=== PATIENT | female | born 1950 | race Caucasian/White ===

== ENCOUNTER 2021-06-22 08:22 | Emergency (ER) | payer MEDICARE, SELFPAY ==
--- NOTE | ~2021-06-22 | XR_ITS ---
EXAMINATION: XR chest 2V EXAM DATE: 06/22/2021 09:08 INDICATION: SOB cough and congestion. TECHNIQUE: Frontal and lateral projections of the chest obtained and reviewed. There is no prior adin dy for comparison. FINDINGS: The lungs are clear. There are no pleural effusions. The cardiomediastinal silhouette is within normal limits. There is no pneumothorax suspected. The bones and soft tissues are unremarkab le. IMPRESSION: No acute cardiopulmonary findings. Reviewed, dictated and finalized at location B. A COTTA MOLD MAKER
[2021-06-22 08:28] VITALS: BP 115/83; PULSE 79; RESP 24; TEMP 36.8; O2SAT 90
[2021-06-22 08:32] VITALS: O2SAT 97
--- NOTE | 2021-06-22 08:33 | ECG_ITS ---
Measurements Intervals [place] Rate: 75 P: 56 CO: 147 QRS: 26 QRSD: 86 T: 31 QT: 382 QTc: 428 Interpretive Statements SINUS RHYTHM DELAYED PRECORDIAL R/S TRANSITION LOW QRS VOLTAGE IN PRECORDIAL LEADS BORDERLINE T WAVE ABNORMALITY- ANTERIOR LEADS BASELINE ARTIFACT- I, II, III, AVR, AVL, AVF, V5-V6 BORDERLINE ECG Electronically Signed On 06-22-2021 8:53:01 TARGET TRIMMER by Tk Romano D.O.
[2021-06-22 09:03] LABS: Basophils Percent Auto 0.4 % (0.2-1.2); Eosinophils Absolute Auto 0.1 K/mm3 (0-0.3); Eosinophils Percent Auto 0.7 % (0-4.4); Hematocrit 47.9 % (37.0-47.0); Hemoglobin 16.1 g/dL (12.0-15.0); Immature Granulocyte Absolute 0.02 K/mm3 (0.00-0.031); Immature Granulocyte Percent A 0.2 % (0-0.5); Lymphocytes Absolute Auto 2.05 K/mm3 (0.9-3.2); Lymphocytes Percent Auto 24.5 % (18.3-44.2); Mean Corpuscular HGB Conc 33.6 g/dl (32-36); Mean Corpuscular Hemoglobin 32.6 pg (26-34); Mean Platelet Volume 9.2 fl (7.4-10.4); Monocytes Absolute Auto 0.6 K/mm3 (0.1-0.6); Monocytes Percent Auto 7.5 % (2.6-8.5); Neutrophils Absolute Auto 5.6 K/mm3 (1.3-6.7); Neutrophils Percent Auto 66.7 % (45.5-73.1); Platelet Count Result 247 k/mm3 (150-375); Red Blood Count 4.94 M/mm3 (4.2-5.4); Red Cell Distribution Width 12.3 % (11.5-14.5); White Blood Count 8.4 K/mm3 (4.5-10.0)
[2021-06-22 09:17] LABS: Alanine Aminotransferase 22 U/L (4-35); Albumin Level 4.5 g/dL (3.5-5.1); Alkaline Phosphatase 76 U/L (38-126); Anion Gap 6 mmol/L (8-16); Aspartate Amino Transferase 24 U/L (14-36); Bilirubin,Total 0.6 mg/dL (0.2-1.3); Blood Urea Nitrogen 11 mg/dL (7-17); Carbon Dioxide 33 mmol/L (22-30); Chloride 97 mmol/L (98-107); Estimated CRCL calculation 98 ml/min; Estimated Glomerular Filt Rate > 60; Glucose 107 mg/dL (65-110); Potassium 4.2 mmol/L (3.4-5.0); Sodium 136 mmol/L (137-145)
[2021-06-22] MEDS: ALBUTEROL SULFATE NEB 2.5 MG/0.5 ML INH 5 MG INHALATION (09:51)
[2021-06-22] MEDS: IPRATROPIUM BR 0.02% INH SOLN 0.5 MG/2.5 ML VIAL INHALATION (09:52)
[2021-06-22 09:54] VITALS: PULSE 69; RESP 19
[2021-06-22 09:59] VITALS: PULSE 73; RESP 20
--- NOTE | 2021-06-22 10:10 | ED.SOB ---
HPI - SOB/Dyspnea General Chief Complaint: Shortness of Breath/Dyspnea Stated Complaint: Shortness of breath Time Seen by Provider: 06/22/21 09:19 History of Present Illness HPI Narrative: Patient is a 71-year-old female who presents ER with shortness of breath. Patient has history of COPD but is not oxygen dependent. She uses [employer] at home. She reports that last week she was exposed to her daughter who had a viral syndrome. Patient has had sinus congestion with sore throat and productive cough since then. She has developed increased exertional shortness of breath. No chest pain or chest pressure. No alleviating factors at home. Patient has been vaccinated against COVID-19 and has had flu shot. She endorses chills but no fevers. Related Data Allergies Allergy/AdvReac Type Severity Reaction Status Date / Time codeine Allergy VOMITING Verified 05/19/12 14:51 Review of Systems Review of Systems: All systems reviewed & are unremarkable except as noted in HPI and below Constitutional: Constitutional: Reports chills, Reports fatigue and Denies fever(s) ENT: Reports nasal congestion and Reports sore throat Cardiovascular: Cardiovascular: Denies chest pain, Denies rapid heart rate and Denies radiating jaw, neck or arm pain Respiratory: Respiratory: Reports cough, Reports dyspnea and Reports wheezing Gastrointestinal: Gastrointestinal: Denies abdominal pain, Denies diarrhea, Reports nausea and Denies vomiting Neurologic: Reports headache(s) (Occasional throbbing headache is circumferential.), Denies focal weakness and Denies numbness PMFSH Past Medical History Medical History (Updated 06/22/21 @ 12:13 by Morales Wooten MD) Anxiety CAD (coronary atherosclerotic disease) COPD (chronic obstructive pulmonary disease) Depression Diabetes Hyperlipidemia Hypertension Surgical History Surgical History (Updated 06/22/21 @ 10:14 by Morales Wooten MD) History of section History of hysterectomy Social History Social History (Updated 06/22/21 @ 10:15 by Morales Wooten MD) Smoking status: Current every day smoker Exam Narrative: GENERAL: Well-appearing, well-nourished, and in no acute distress. HEAD: Normocephalic, atraumatic. EYES: PERRL and EOMI. CHEST: Mild tachypnea with scattered wheezing worse anteriorly. HEART: Regular rate and rhythm. Normal peripheral pulses. ABDOMEN: Soft, nontender, nondistended. EXTREMITIES: Normal range of motion. No edema. SKIN: Warm, dry, no rash. NEURO: Alert and oriented x3. PSYCH: Normal mood and affect. Course Course Emergency Course: Patient still with wheezing and rhonchi diffusely but improved. Patient has had some mild hypoxia down to 88% likely related to VQ mismatch. Discussed admission with patient for observation IV steroids and continuous nebulizer treatments. She reports she cannot stay in the hospital due to having a who is demented and has a colostomy bag. She reports she has not been eligible for long-term care and that there is no family to watch him. She is declining any admission but reports she will come back if she worsens. Though she is leaving AMA I will give her a prescription for albuterol which she has not had and I will also prescribe her a course of steroids. She understands the risks of leaving her , deterioration of condition, and potentially permanent disability. Vital Signs Vital signs: Vital Signs Temperature 98.2 F 06/22/21 08:28 Pulse Rate 79 06/22/21 08:28 Respiratory Rate 24 H 06/22/21 08:28 Blood Pressure 115/83 06/22/21 08:28 Pulse Oximetry 90 06/22/21 08:28 Temperature 98.2 F 06/22/21 08:28 Pulse Rate 73 06/22/21 09:59 Respiratory Rate 20 06/22/21 09:59 Blood Pressure 115/83 06/22/21 08:28 Pulse Oximetry 96 06/22/21 11:44 MDM - SOB/Dyspnea Lab Data Result diagrams: 06/22/21 08:56 06/22/21 08:56 Labs: Lab Results 06/22/21
--- NOTE | 2021-06-22 11:43 | PC.NURSE ---
pt's pulse ox 85%-89% on room air. Dr Wooten aware - placed pt on 2l/nc per ER verbal order.
[2021-06-22 11:44] VITALS: O2SAT 96
[2021-06-22] MEDS: methylPREDNISolone SOD SUCC 125 MG VIAL IV PUSH (11:51)
[2021-06-22 18:48] LABS: SARS-CoV-2 RNA PCR Negative
== END 2021-06-22 12:41 | disposition left against medical advice (07) ==
PROVIDERS: Emergency Medicine; Emergency Provider Emergency Medicine; PCP Physician Assistant
DX: Z20.822 Contact with and (suspected) exposure to COVID-19 (principal); J44.1 Chronic obstructive pulmonary disease with (acute) exacerbation; F41.9 Anxiety disorder, unspecified; F32.9 Major depressive disorder, single episode, unspecified; I25.10 Atherosclerotic heart disease of native coronary artery without angina pectoris; E11.9 Type 2 diabetes mellitus without complications; I10 Essential (primary) hypertension
CPT/HCPCS: 36415; 71046; 80053; 85025; 93005; 94640; 96374; 99284; C9803; J2930; U0003; U0005

== ENCOUNTER → 2022-09-15 12:03 | Outpatient (CLI) | payer MEDICARE, SELFPAY ==
--- NOTE | ~2022-09-15 | MM_ITS ---
EXAMINATION: MM screening frantz BI w grabiel HISTORY: Screening mammogram TECHNIQUE: Craniocaudal and mediolateral oblique 3-D tomosynthesis images were obtained and synthetic 2-D images were generated. CAD analysis was submitted and interpreted. COMPARISON: 02/03/2019, 08/17/2017 bilateral screening mammogram examinations BREAST PARENCHYMAL COMPOSITION: The breasts are almost entirely fatty. FINDINGS: There is no evidence of suspicious mass, calcification, or architectural distortion to sugg est malignancy in either breast. There has been no suspicious interval change. IMPRESSION: 1. No mammographic evidence of malignancy. 2. Recommend routine screening mammography in one year. BI-RADS Category 1: Negative Reviewed, dictated and finalized at location A. STIC HOUSEKEEPER
== END ==
PROVIDERS: PCP Nurse Practitioner Family; Visit Provider Nurse Practitioner Family
DX: Z12.31 Encounter for screening mammogram for malignant neoplasm of breast (principal)
CPT/HCPCS: 77063; 77067

== ENCOUNTER 2024-01-09 12:04 | Outpatient (CLI) | payer MEDICARE, SELFPAY ==
--- NOTE | ~2024-01-09 | DEXA_ITS ---
Bone Density Report Name: LUCERO VIDAL Age: 73 Sex: Female Ethnicity: White Date of : 1950 Indication: postmenopausal; screening for osteoporosis; height loss; hysterectomy; Referring Provider: ROSANA, ERUM Study: Bone densitometry was performed. Exam Date: January 09, 2024 Accession number: [id number] Bone Density: Region BMD T-score Z-score Classification AP Spine (L1, L2) 1.100 1.1 3.2 Normal Femoral Neck (Left) 0.730 -1.1 0.9 Osteopenia Total Hip (Left) 0.919 -0.2 1.5 Normal Femoral Neck (Right) 0.785 -0.6 1.4 Normal Total Hip (Right) 0.924 -0.1 1.5 Normal Total Hip Mean 0.922 -0.2 1.5 Normal World Health Organization criteria for BMD impression classify patients as: Normal (T-score at or above -1.0), Osteopenia (T-score between -1.0 and -2.5), or Osteoporosis (T-score at or below -2.5). 10-year Fracture Risk(1): Major Osteoporotic Fracture 9.2% Hip Fracture 1.9% Reported Risk Factors: [place] (), Neck BMD=0.730, BMI=33.6, smoking (1) FRAX(R) Version 3.08. Fracture probability calculated for an untreated patient. Fracture probability may be lower if the patient has received treatment. Previous Exams: Region Exam Age BMD T-score BMD Change BMD Change Date g/cm2 vs Baseline vs Previous AP Spine(L1, L2) 01/09/2024 73 1.100 1.1 0.066 0.066 08/17/2017 67 1.034 0.5 Total Hip(Left) 01/09/2024 73 0.919 -0.2 -0.044 -0.044 08/17/2017 67 0.963 0.2 Total Hip(Right) 01/09/2024 73 0.924 -0.1 -0.008 -0.008 08/17/2017 67 0.933 -0.1 *Denotes significance at 95% confidence level, LSC for AP Spine = 0.022 g/cm2, LSC for Total Hip = 0.027 g/cm2 Clinical Information Provided by Patient: Smokes Has used the following medications: Vitamin D, Calcium, MTV Has the following medical conditions: Hysterectomy Patient maximum height was 66.0 Menopause Age: 51 No regular weight bearing exercise Drinks caffeinated beverages Onset of menses at age 17 Number of children 2 Impression: The patient has low bone mass, based on the Left Femoral Neck T-score. The patient has an estimated ten-year risk of hip fracture of 1.9% and an estimated ten-year risk of major fracture of 9.2%, based on the WHO FRAX algorithm. The patient has risk factors, including: smoking. No significant bone loss was observed. Discussion: BONE DENSITY IS LOW AT ONE OR MORE SKELETAL SITES. This patient's lowest T-score is low at one or more skeletal sites. It meets the
--- NOTE | ~2024-01-09 | MM_ITS ---
EXAMINATION: MM screening frantz BI w grabiel HISTORY: Screening TECHNIQUE: Craniocaudal and mediolateral oblique 3-D tomosynthesis images were obtained and synthetic 2-D images were generated. CAD analysis was submitted and interpreted. COMPARISON: Comparison to multiple prior studies sequentially, with oldest reviewed study dated 02/02. BREAST PARENCHYMAL COMPOSITION: Not Dense: Breast are almost entirely fatty. FINDINGS: There is no evidence of suspicious mass, calcification, or architectural distortion to sugg est malignancy in either breast. There has been no suspicious interval change. IMPRESSION: 1. No mammographic evidence of malignancy. 2. Recommend routine screening mammography in one year. BI-RADS Category 1: Negative Reviewed, dictated and finalized at location B.
== END 2024-01-09 12:05 ==
LOC: MICIMG 12:05
PROVIDERS: PCP Nurse Practitioner Family; Visit Provider Nurse Practitioner Family
DX: Z12.31 Encounter for screening mammogram for malignant neoplasm of breast (principal); M81.0 Age-related osteoporosis without current pathological fracture; M85.89 Other specified disorders of bone density and structure, multiple sites; Z13.820 Encounter for screening for osteoporosis
CPT/HCPCS: 77063; 77067; 77080

== ENCOUNTER 2024-10-25 12:12 | Inpatient (IN) | payer MEDICARE, SELFPAY ==
[2024-10-25] VITALS (67 sets, daily range): BP systolic 106–137; BP diastolic 67–94; PULSE 72–89; RESP 13–44; TEMP 36.4–36.6; O2SAT 86–100; BMI 31.8
--- NOTE | ~2024-10-25 | CT_ITS ---
EXAMINATION: CT diagnostic chest w con DATE: 10/25/2024 15:38 INDICATION: Bilateral nodular densities on 10/25/2024 2 view chest radiographic examination TECHNIQUE: Computed tomography (CT) of the chest was performed with 100 CC Omnipaque 350 intravenous contrast. Automated exposure control and iterative reconstruction technique were employed. Exam dose: 602.44 mGy-cm total exam DLP. COMPARISON: 10/25/2024 2 view chest FINDINGS: There are moderate emphysematous changes favoring the upper lobes. There is patchy right upper lobe infiltrate including anterior and posterior segments. There is minim al lobe discoid atelectasis or scarring. There is minimal dependent bilateral lower lobe atelectasis. No suspicious pulmonary mass density is noted. No hilar or mediastinal mass lesion or lymphadenopathy. There is calcification of the aortic arch and descending thoracic aorta but no thoracic aortic aneury sm or dissection. Normal heart size. No pericardial effusion. Left anterior descending and circumflex artery calcificat ion. There is no evidence of pulmonary emboli. Cholelithiasis. Normal morphology of the adrenal glands. Prominent degenerative disc disease at C5-6 and C6-7. Minimal anterolisthesis at C7-T1. Degenerative spurring of the thoracic spine. No suspicious osteolytic or osteoblastic lesions are noted. IMPRESSION: COPD Patchy right upper lobe infiltrate which may be due to pneumonia Cholelithiasis Reviewed, dictated and finalized at [facility]. Reviewed, dictated and finalized at [facility].
--- NOTE | ~2024-10-25 | XR_ITS ---
XR chest 2V 10/25/2024 13:26 Indication: Dyspnea Procedure: 2 view chest Comparison: 06/22/2021 Findings: Borderline heart size with pulmonary vascular congestion. There are small bilateral nodular densities not seen on prior examination. No significant effusion. No pneumothorax. No acute osseous abnormality. Impression: 1: Small bilateral nodular densities not seen on prior examination. Follow-up CT chest with contrast recommended to exclude parenchymal nodules. 2: Borderline heart size with pulmonary vascular congestion. Reviewed, dictated and finalized at location [facility]. Impression: 1: Small bilateral nodular densities not seen on prior examination. Follow-up C T chest with contrast recommended to exclude parenchymal nodules. 2: Borderline heart size with pulmonary vascular congestion.
--- NOTE | 2024-10-25 12:17 | ECG_ITS ---
Test Date: 2024-10-25 12:19:37 Measurements Intervals [place] Rate: 76 P: -8 WA: 134 QRS: -75 QRSD: 90 T: 64 QT: 377 QTc: 426 Interpretive Statements SINUS RHYTHM LEFT AXIS DEVIATION [QRS AXIS < -30] MODERATE T-WAVE ABNORMALITY, CONSIDER ANTEROLATERAL ISCHEMIA [-0.1+ mV T-WAVE IN V3-V6] No previous ECG available for comparison Electronically Signed On 10-25-2024 17:39:22 CDT by Zhao Escobedo M.D.
--- NOTE | 2024-10-25 13:04 | ED.SOB ---
HPI - SOB/Dyspnea General Chief Complaint: Shortness of Breath/Dyspnea Stated Complaint: dyspnea, hypoxic Time Seen by Provider: 10/25/24 12:56 Source: patient and family (daughter) Mode of arrival: EMS Limitations: no limitations History of Present Illness HPI Narrative: Patient presents with shortness of breath going on for a few days. History of COPD not on supplemental O2 . prescribed inhalers but not using. Has been around sick people/family member(s) who had influenza. She has subjective fevers (not measured) and chills. EMS found her dyspneic and hypoxic saturating 70-80% on scene; placed on NC and given a DuoNeb versus albuterol by EMS. Initially shallow, labored breaths. No prior bipap or intubation for COPD exacerbation. No chest pain or edema. Has been coughing, dry but starting to loosen. Related Data Home Medications ?Medication ?Instructions ?Recorded ?Confirmed ?Last Taken ?Type alprazolam 0.25 mg tablet 0.25 mg PO DAILY PRN anxiety 01/16/22 10/26/24 10/25/24 History atorvastatin 40 mg tablet 40 mg PO QPM 01/16/22 10/26/24 10/24/24 History carvedilol 25 mg tablet 25 mg PO Q12H 01/16/22 10/26/24 10/25/24 09:30 History fluticasone furoate 100 1 inh inhalation DAILY 01/16/22 10/26/24 10/24/24 History mcg-vilanterol 25 mcg/dose inhalation powder (Breo Ellipta) metformin 500 mg tablet 1,000 mg PO QHS 01/16/22 10/26/24 10/24/24 22:00 History spironolactone 25 mg tablet 25 mg PO DAILY 01/16/22 10/26/24 10/25/24 History tiotropium bromide 18 mcg capsule 1 cap inhalation DAILY 01/16/22 10/26/24 10/24/24 History with inhalation device (Spiriva with HandiHaler) aspirin 81 mg tablet,delayed 81 mg PO QPM 10/26/24 10/26/24 10/24/24 History release (Adult Aspirin Regimen) calcium 600 mg (as 2 tablet PO DAILY 10/26/24 10/26/24 10/25/24 History carbonate)-vitamin D3 10 mcg (400 unit) tablet (Calcium 600 + D(3)) duloxetine 30 mg capsule,delayed 30 mg PO QAM 10/26/24 10/26/24 10/25/24 History release multivitamin,wi-nlrg-Ba-FA-min 1 tablet PO DAILY 10/26/24 10/26/24 10/24/24 History Allergies Allergy/AdvReac Type Severity Reaction Status Date / Time codeine Allergy VOMITING Verified 10/26/24 02:40 Bee sting Allergy Unknown Swelling Uncoded 10/26/24 02:40 PMFSH Past Medical History Medical History (Updated 10/25/24 @ 21:02 by Wanda Bang PA-C) Chronic obstructive pulmonary disease Depression Anxiety Hyperlipidemia Hypertension CAD (coronary atherosclerotic disease) Surgical History Surgical History History of section History of hysterectomy Family History Family History Mother Depression Heart disease CHF (congestive heart failure) Father Pleurisy Sibling Hypertension Acute myocardial infarction Social History Social History (Updated 10/26/24 @ 04:29 by Wanda Bang PA-C) Social History: Surrogate medical decision maker: Abby Bowling, daughter. Code status: Full code. Smoking packs per day: 1 Smoking cigarettes per day: 20.0 Years smoked: 50 Smoking pack-years: 50.00 Smoking status: Current every day smoker Tobacco type: cigarettes Second hand tobacco smoke exposure: No Alcohol intake: never Substance use: never Substance use type: does not use Do You Feel Safe in your Home?: Yes Lack of Transportation: No Lack of Food: Never True Current Housing: I Have Housing Concerned About Future Housing: No Difficulty Paying Gas/Electric Bills: No Difficulty Paying for Meds: No Currently Unemployed: No Education: High School Diploma/GED Difficulty w/ Childcare or Family Care: No Spiritual care concerns: No Exam Narrative: GENERAL: Well-appearing, well-nourished HEAD: Normocephalic, atraumatic. EYES: Non injected, non icteric ENT: Nares clear, no rhinorrhea or epistaxis. NECK: Supple. CHEST: Tacypneic; diffuse bilateral wheezes though L > R, slightly diminished on the right. NC in place. Speaking in full sentences. HEART: Regular rate and rhythm. . ABDOMEN: Soft, nondistended. EXTREMITIES: Normal range of motion. No lower extremity edema. SKIN: Warm, dry, no rash. NEURO: No focal deficits. Alert and oriented x3. PSYCH: Normal mood and affect. Course Vital Signs Vital signs: Vital Signs Temperature 97.6 F 10/25/24 12:20 Pulse Rate 76 10/25/24 12:20 Respiratory Rate 16 10/25/24 12:20 Blood Pressure 106/67 10/25/24 12:20 Pulse Oximetry 86 L 10/25/24 12:20 Temperature 98.7 F 10/26/24 08:00 Pulse Rate 96 10/26/24 10:00 Respiratory Rate 20 10/26/24 09:13 Blood Pressure 109/93 H 10/26/24 08:00 Pulse Oximetry 95 10/26/24 09:05 Oxygen Delivery Nasal Cannula 10/26/24 09:05 Oxygen Flow Rate 4 10/26/24 09:05 MDM - SOB/Dyspnea MDM Narrative Medical decision making narrative: Patient with history of COPD (not on supplemental O2 but not using inhalers prescribed) presents with SOB for the past few days. Also cough. Recent exposure to influenza. Saturating 70-80s on scene for EMS who applied NC and gave Duoneb versus albuterol. In the emergency department she is afebrile with vital signs notable for initial hypoxia at 86%. There is improvement to 94% 3 L nasal cannula. Patient does have diffuse bilateral end-expiratory wheezes although left greater than right. Given her history of COPD, will initiate treatment. EMS already gave albuterol by report. Methylprednisolone, DuoNeb, and magnesium drip ordered. Very mild AST and ALT elevations. Sodium partially corrects (to 133) in the setting of hyperglycemia. Hyperglycemia is without anion gap acidosis. Hemoglobin is elevated at 17.6. Per review of the EMR patient chronically has an elevated hemoglobin though this does represent more from previous. Patient had initially been on 3 L nasal cannula but was on 2 L at the time ABG drawn. RT notes that she had also been borderline hypoxic at 90-92% on this with nasal cyanosis so I did advise returning to 3L. She tests positive for influenza A. BAP-65 Score for Acute Exacerbation of COPD (predicts mortality in acute COPD exacerbation) BUN >/=25 mg/dL (No 0, Yes +1): 0 AMS (No 0, Yes +1): 0 Pulse >/=109 beats/min (No 0, Yes +1): 0 Age, years: 41-64 versus >/= 65: >65 Result: BAP 0, routine management COPD exacerbation. 1.0?% In-hospital mortality 0.2% requiring intubation within 48 hrs Because patient also has new O2 requirement in the setting of a COPD exacerbation, azithromycin is ordered. Patient has an elevated troponin. No prior for comparison. She denies chest pain. 3 hours/repeat troponin ordered as is aspirin. BNP also elevated, concerning for acute onset heart failure (no prior for comparison and not listed in EMR PMH). Notified by lab that there is an issue with the analyzer for the D dimer, delaying its result. Patient reassessed at approximately 3:00 p.m.. She is tight with some end-expiratory wheezes. Additional albuterol ordered. Dimer mildly elevated however per YEARS Algorithm : No Clinical signs of DVT: No Hemoptysis: No PE is most likely diagnosis: No D-dimer >1000ng/mL: No Result: PE Excluded Will proceed with ordering CT imaging with contrast given the findings on the x-ray however will not proceed with CTA. Patient and her daughter have questions about why we are proceeding with the CT. We discussed the findings on the x-ray as well as what we have learned so far from her workup including NSTEMI, COPD exacerbation influenza a positive, new oxygen requirement, and that ultimately she would require admission for these things. They verifies understanding and are in agreement and amenable to proceeding with CT.. Repeat troponin remains elevated but improving. Patchy right infiltrate on CT scan concerning for pneumonia. Patient is already received azithromycin. Will add ceftriaxone although again, possibly viral in nature given positive influenza A. Discussed with aviation technician aircraft hospitalist DORY Muñoz. Accepted for admission to the IMU. Differential Diagnosis Differential diagnosis: Likely acute exacerbation of chronic obstructive airways disease, congestive heart failure, community acquired pneumonia, pulmonary embolism and other (acute viral syndrome) Lab Data Attestation: I reviewed the patient's lab results. Lab results narrative: Normal renal function. Very mild hyperkalemia. 10/26/24 05:13 10/26/24 05:13 Labs: Lab Results 10/25/24 10/25/24 10/25/24 Range/Units 12:29 12:59 16:07 WBC 8.5 (4.5-10.0) K/mm3 RBC 5.62 H (4.2-5.4) M/mm3 Hgb 17.6 H (12.0-15.0) g/dL Hct 53.7 H (37.0-47.0) % MCV 95.6 (80-100) fl MCH 31.3 (26-34) pg MCHC 32.8 (32-36) g/dl RDW 12.5 (11.5-14.5) % Plt Count 170 (150-375) k/mm3 MPV 10.5 H (7.4-10.4) fl Immature Gran % (Auto) 0.2 (0-0.5) % Neut % (Auto) 75.8 H (45.5-73.1) % Lymph % (Auto) 15.4 L (18.3-44.2) % Clare % (Auto) 8.4 (2.6-8.5) % Eos % (Auto) 0.0 (0-4.4) % Baso % (Auto) 0.2 (0.2-1.2) % Lymph # (Auto) 1.31 (0.9-3.2) K/mm3 Clare # (Auto) 0.7 H (0.1-0.6) K/mm3 Eos # (Auto) 0.0 (0-0.3) K/mm3 Baso # (Auto) 0.0 (0.0-0.1) K/mm3 Abs Immat Gran (auto) 0.02 (0.00-0.031) K/mm3 Absolute Neuts (auto) 6.4 (1.3-6.7) K/mm3 Absolute Nucleated RBC 0.000 (0.0-0.012) K/mm3 Nucleated RBC % 0.0 (0.0-0.2) % D-Dimer 0.58 H (<0.48) ug/mL Sodium 132 L (137-145) mmol/L Potassium 5.2 H (3.4-5.0) mmol/L Chloride 89 L (98-107) mmol/L Carbon Dioxide 37 H (22-30) mmol/L Anion Gap 6 (4-12) mmol/L BUN 16 (7-17) mg/dL Creatinine 0.63 L (0.7-1.0) mg/dL Estim Creat Clear Calc Not Reportable Estimated GFR > 60 (59 - ) Glucose 161 H (65-110) mg/dL Calcium 10.2 (8.4-10.2) mg/dL Magnesium 1.9 (1.6-2.3) mg/dL Total Bilirubin 0.8 (0.2-1.3) mg/dL AST 42 H (14-36) U/L ALT 41 H (6-35) U/L Alkaline Phosphatase 74 (38-126) U/L Troponin I 0.143 H* 0.116 H* (0.000-0.034) ng/mL NT-Pro-B Natriuret Pep 3200 H (19.9-100) pg/mL Total Protein 8.0 (6.3-8.2) g/dL Albumin 4.3 (3.5-5.1) g/dL Influenza A (RT-PCR) Positive A (Negative) Influenza B (RT-PCR) Negative (Negative) RSV (RT-PCR) Negative (Negative) SARS-CoV-2 RNA (RT-PCR) Negative (Negative) ABG Data ABG results: 10/25/24 13:25 Puncture Site Left brachial ABG pH 7.371 ABG pCO2 55.3 H ABG pO2 60.4 L ABG PO2/FiO2 Ratio 2.16 ABG HCO3 31.3 H ABG O2 Saturation 90.1 L ABG O2 Content 21.1 ABG Base Excess 4.2 A-a Gradient 74.0 Oxyhemoglobin 87.6 L* Total Hemoglobin 17.2 O2 Delivery Device Nasal cannula O2 Liters/Min 2.0 FiO2 28 pH 7.371; pCO2 55.3; pO2 60.4; HCO3 31.3. Attestation: I personally reviewed and interpreted this ABG as follows: Interpretation: Primary respiratory acidosis w/ secondary metabolic alkalosis Imaging Data Attestation: I personally reviewed and interpreted this imaging study as follows: My impression: Bibasilar atelectasis versus pneumonia on my independent interpretation of chest x-ray Radiologist's impression: Impressions Chest X-Ray 10/25/24 13:34 Impression: 1: Small bilateral nodular densities not seen on prior examination. Follow-up CT chest with contrast recommended to exclude parenchymal nodules. 2: Borderline heart size with pulmonary vascular congestion. Chest CT 10/25/24 18:48 IMPRESSION: COPD Patchy right upper lobe infiltrate which may be due to pneumonia Cholelithiasis ECG Data EKG #1: Attestation: I personally reviewed and interpreted this ECG as follows: ECG completion date: 10/25/24 ECG completion time: 12:19 Interpretation: Normal sinus rhythm at a rate of 76 beats per minute. OH interval 134. QRS 90. QT/QTC 377/408. Good R-wave progression across the precordial leads. T-wave inversion in V3, possibly due to lead placement. Other T-wave inversions. EKG #2: Attestation: I personally reviewed and interpreted this ECG as follows: ECG completion date: 10/25/24 ECG completion time: 16:05 Interpretation: Normal sinus rhythm at a rate of 74 beats per minute. OH interval 143. QRS 82. QT/QTC 361/389. Good R-wave progression across the precordial leads. T-wave inversion in 3 but otherwise upright in normal in contiguous inferior leads 2 and AVF. There is also T-wave inversion in V3, possibly due to lead placement. There also T-wave inversions verses biphasic T-waves in V4 and V5. Discharge Plan Discharge Clinical Impression: Elevated AST (SGOT), Elevated ALT measurement, Elevated hemoglobin, Influenza A, Non-ST elevation NE (NSTEMI), Acute heart failure, COPD exacerbation, Hypoxemia requiring supplemental oxygen, Shortness of breath, Pneumonia of right upper lobe due to influenza A virus, Cholelithiasis Patient Disposition: Still a Patient Condition: Stable
--- OUTSIDE RECORDS SUMMARY | 2024-10-25 13:04 | XMS_ITS | Clinical Summary ---
Author Organization [facility] Address [address] [place] [address] Care Team Providers Care Social Security Specialist Name Role Phone Ru Arrington MD Primary Care Provider [phone] Source Comments [facility],non-owned Affiliates and Associated Physician Practices is amultiple site organization consisting of ambulatory clinics and hospital sitesin [place], [place], [place] and [place]. This disclosure is being madepursuant to the Care Everywhere program and may not contain all information available regarding this patient. Last updated 18.[facility] Allergies Active Allergy Reactions Criticality Noted Date Comments Codeine Nausea and/or Vomiting Low 12/22/2013 Medications * Be aware that medications may not be up to date on this document. Alwaysverify current medications with the patient. Medication Sig Dispensed Refills Start Date End Date Status albuterol HFA (PROAIR HFA) 108 (90 BASE) MCG/ACT inhaler Inhale 2 puffs by mouth q4h PRN (Wheezing, Shortness of Breath). 17 g 5 02/22/2016 Active Additional Information Patient not taking.Reported on 05/02/2018 aspirin (ASPIRIN) 81 MG tablet Take 81 mg by mouth once daily Active fluticasone-vilante rol (BREO ELLIPTA) 100-25 MCG/INH inhalerIndications: Chronic obstructive pulmonary disease, unspecified COPD type (HCC) Inhale 1 puff by mouth once daily Administer at the same time each day. Rinse mouth after using 3 Inhaler 4 05/02/2018 Active carvedilol (COREG) 25 MG tabletIndications:E ssential (primary) hypertension Take 1 tablet by mouth 2 times daily with morning and evening meal 180 tablet 4 05/02/2018 Active metFORMIN ER 24hr (GLUCOPHAGE XR) 500 MG tabletIndications:T ype 2 diabetes mellitus without complication, without long-term current use of insulin (HCC) Take 2 tablets by mouth daily with dinner 180 tablet 4 05/02/2018 Active tiotropium (SPIRIVA HANDIHALER) 18 MCG inhalation capsuleIndications: Chronic obstructive pulmonary disease, unspecified COPD type (HCC) Inhale 1 capsule by mouth once daily 90 capsule 4 05/02/2018 Active atorvastatin (LIPITOR) 40 MG tabletIndications:T ype 2 diabetes mellitus without complication, without long-term current use of insulin (HCC) Take 1 tablet by mouth at bedtime 90 tablet 4 05/02/2018 Active spironolactone (ALDACTONE) 25 MG tabletIndications:E ssential (primary) hypertension Take 2 tablets by mouth once daily 180 tablet 4 05/02/2018 Active escitalopram (LEXAPRO) 20 MG tabletIndications:A djustment disorder with depressed mood Take 1 tablet by mouth once daily 90 tablet 4 05/02/2018 Active Multiple Vitamins-Minerals (MULTI FOR HER PO) Active Nutritional Supplements (VITAMIN D BOOSTER PO) Active Cyanocobalamin (VITAMIN B 12 PO) Active Active Problems Problem Noted Date Diagnosed Date Controlled type 2 diabetes m reynold without complication, without long-term current use of insulin 06/26/2013 Assessment & Plan (09/09/2018 11:48 AM MUTUEL CLERK): A1c remains controlled. Continue metformin as prescribed. Encouraged increase in physical activity to help reduce insulin resistance. Assessment & Plan (05/17/2018 11:54 AM CDT): Last A1c within past 6 months and controlled. Continue semiannual testing. Continue current dose metformin. Adjustment disorder with depressed mood 09/04/19 12 Assessment & Plan (05/17/2018 11:56 AM CDT): Continue current citalopram. Unlikely to improve significantly due to household instability. Nicotine dependence, uncomplicated 07/04/2010 Assessment & Plan (05/17/2018 11:54 AM CDT): Continue to encourage tobacco cessation. States may be ready soon. Chronic obstructive pulmonary disease 05/26/2010 Assessment & Plan (09/09/2018 11:48 AM MUTUEL CLERK): Symptomatically improved with addition of Breo. Continue current Rx. Assessment & Plan (05/17/2018 11:56 AM CDT): Spirometry demonstrates moderate obstruction. Currently only on LAMA. Add ICS/LABA combination as ordered. Reviewed potential ADRs. Hyperlipidemia 05/26/2010 Essential (primary) hypertension 05/26/2010 Assessment & Plan (09/09/2018 11:47 AM MUTUEL CLERK): Historically controlled BP; diastolic increased today. Continue current Rx for now. Consider increase in spironolactone if remains uncontrolled. Assessment & Plan (05/17/2018 11:55 AM CDT): BP controlled today. Continue current Rx. Immunizations Name Administration Dates Next Due INFLUENZA VACCINE, TRIV. (AF LURIA, FLUZONE TRIVALENT; 6MO+) (IIV3) 06/05/2016,05/08/2015,05/08/2015,2013,05/08/2013,05/10/2010 HepB Unspecified formulation 08/29/2007 INFLUENZA VACCINE 05/03/2011 INFLUENZA VACCINE, HIGH-DOSE , QUADR. (FLUZONE HIGH-DOSE QUADRIVALENT; 65Y+), 0.7 ML (HD-IIV4) 05/02/2018 PNEUMOCOCCAL PPSV23 05/25/2010 Pneumococcal Pcv13 Conj 07/28/2016 TD (ADULT), 5 LF TETANUS TOX OID, ADSORBED, PF 08/26/2002 TDAP (7yrs+) 01/21/2013 ZOSTER VACCINE, LIVE 05/03/2011 Family History Medical History Relation Name Comments None Known Father Status: d Arthritis - Osteo Mother Heart Failure Mother Status: Deceas ed Relation Name Status Comments Father Mother Social History Tobacco Use Types Packs/Day Years Used Date Smoking Tobacco: Every Day Cigarettes Smokeless Tobacco: Never Tobacco Cessation:Ready to Q uit: Yes; Counseling Given: No Alcohol Use Standard Drinks/Week Comments No 0 (1 standard drink = 0.6 oz pur e alcohol) Sex and Gender Information Value Date Recorded Sex Assigned at Not on file Gender Identity Not on file Sexual Orientation Not on file Last Filed Vital Signs Vital Sign Reading Time Taken Comments Blood Pressure 124/96 09/06/2018 2:16 PM MUTUEL CLERK Pulse 84 09/06/2018 2:16 PM MUTUEL CLERK Temperature 36.6 C (97.8 F) 05/02/2018 11:15 AM CDT Respiratory Rate 16 09/06/2018 2:16 PM MUTUEL CLERK Oxygen Saturation 95% 09/06/2018 2:16 PM MUTUEL CLERK Inhaled Oxygen Concentration - - Weight 89.4 kg (197 lb) 09/06/2018 2:16 PM MUTUEL CLERK Height 165.1 cm (5' 5 ) 03/09/2017 1:03 PM CDT Body Mass Index 32.78 03/09/2017 1:03 PM CDT Plan of Treatment Health Maintenance Due Date Last Done Comments BONE DENSITY TESTING 1950 COLOGUARD (AGES 45-75) - COLON CA SCREENING 1950 COLON MONITORING 1950 COLONOSCOPY - COLON CA SCREENING 1950 CT COLONOGRAPHY - COLON CA SCREENING 1950 Colorectal Cancer Screening 1950 FIT - COLON CA SCREENING 1950 FLEX SIG - COLON CA SCREENING 1950 MEDICARE AWV 12 MONTHS 1950 HEPATITIS C SCREENING 03/06/1969 HEPATITIS B VACCINE (2 of 3 - 19+ 3-dose series) 09/26/2007 08/29/2007 Respiratory Syncytial Virus (RSV) Vaccine Pt: or over 60 yrs (1 - Risk 60-74 years 1-dose series) 2011 ZOSTER VACCINE (2 of 3) 06/28/2011 05/03/2011 DIABETES-FOOT EXAM WITH MONOFILAMENT 11/05/2017 DIABETES-SERUM CREATININE 01/17/20192017, 07/28/2016, 06/14/2015, Additional history exists DIABETES-HGB A1C 03/06/2019 09/06/2018, , 03/09/2017, Additional history exists DIABETES RETINOPATHY SCREENING 05/04/2020 05/04/2018 MAMMOGRAM 02/04/2021 02/04/2019, 08/06 (Done Outside Per Report) PNEUMOCOCCAL VACCINE 50+ (3 of 3 - PCV20 or PCV21) 07/28/2021 07/28/2016, 05/25/2010 DTAP/TDAP/TD VACCINES (3 - Td or Tdap) 01/21/2023 01/21/2013, 08/26/2002 COVID-19 VACCINE (1 - season) 2024 INFLUENZA VACCINE (#1) 2024 8, 06/05/2016, 05/08/2015, Additional history exists DEPRESSION SCREENING 08/06/2024 DIABETES - URINE PROTEIN SCREENING 08/06/2024 07/14/2014, 02/27/2013, 02/02/2012 HIB VACCINE Aged Out No longer eligi ble based on patient's age to complete this topic HPV VACCINE Aged Out No longer eligi ble based on patient's age to complete this topic MENINGOCOCCAL (Group B) VACCINE SHARED DECISION-MAKING Aged Out No longer eligible based on patient's age to complete this topic MENINGOCOCCAL GROUPS A/C/Y/W VACCINE Aged Out No longer eligible based on patient's age to complete this topic Procedures Procedure Name Priority Date/Time Associated Diagnosis Comments MAMMOGRAM 02/04/2019 8:28 AM CDT HEMOGLOBIN A1C - POINT OF CARE (AMB) [facility] Routine 09/06/2018 Controlled type 2 diabetes mellitus without complication, without long-term current use of insulin EYE EXAM 05/04/2018 11:52 AM CDT BASIC METABOLIC PANEL (CALCIUM TOTAL) 01/17/2018 10:31 AM CDT MICROALB/CREAT RATIO URINE RANDOM PANEL Routine 07/14/2014 9:34 AM MUTUEL CLERK from Last 3 Months or Most Recently Relevant to Health Maintenance Results * MAMMOGRAM (02/04/2019 8:28 AM CDT) Anatomical Region Laterality Modality Other Narrative 02/04/2019 8:28 AM CDT Ordered by an unspecified provider. Scanned Document SCANNING ONLY * HEMOGLOBIN A1C - POINT OF CARE (AMB) [facility] (09/06/2018) Hemoglobin A1c POCT 6.0 BLOOD SPECIMEN / Unknown 09/06/2018 Ru Arrington MD LAB - POINT OF CARE ORDERABLES * EYE EXAM (05/04/2018 11:52 AM CDT) Anatomical Region Laterality Modality Other Narrative 05/04/2018 11:52 AM CDT Ordered by an unspecified provider. Scanned Document SCANNING ONLY * (ABNORMAL) BASIC METABOLIC PANEL (CALCIUM TOTAL) (01/17/2018 10:31 AM CDT) Glucose 106(H) 65 - 99 mg/dL [facility] INSURANCE BILL BUN 12 8 - 27 mg/dL [facility] INSURANCE BILL Creatinine 0.68 0.57 - 1.00 mg/dL [facility] INSURANCE BILL eGFR by MDRD 91 >59 mL/min/1.7 3 [facility] INSURANCE BILL eGFR by MDRD 105 >59 mL/min/1.7 3 [facility] INSURANCE BILL BUN/Creatinine Ratio 18 12 - 28 [facility] INSURANCE BILL Sodium 139 134 - 144 mmol/L [facility] INSURANCE BILL Potassium 5.1 3.5 - 5.2 mmol/L [facility] INSURANCE BILL Chloride 99 96 - 106 mmol/L [facility] INSURANCE BILL CO2 28 20 - 29 mmol/L [facility] INSURANCE BILL Comment:Please note refere nce interval change Calcium 9.1 8.7 - 10.3 mg/dL [facility] INSURANCE BILL Comment:FASTING 01/17/2018 10:3 1 AM CDT 01/17/2018 Narrative Resulting Agency Comment [facility] [address] [id number] Ru Arrington MD LAB - CHEMISTRY EARLENE BERGERON [facility] Organization Address City/State/ZIP Co de Phone Number [facility] INSURANCE BILL [address] [place] [address] * (ABNORMAL) MICROALB/CREAT RATIO URINE RANDOM PANEL (07/14/2014 9:34 AM MUTUEL CLERK) Creatinine Urine 376.8(H) 15.0 - 278.0 mg/dL [facility] (BEAKER) Microalbumin Random Urine 62.4(H) 0.0 - 17.0 ug/mL [facility] (BEAKER) Urine Albumin/Creatinin e Ratio 16.6 0.0 - 30.0 mg/g creat [facility] (BEAKER) Urine specimen (specimen) URINE / Unknown 07/14/2014 9:34 AM MUTUEL CLERK 07/14/2014 1:28 PM MUTUEL CLERK Narrative [facility] (BEAKER) - 07/15/2014 5:16 AM MUTUEL CLERK Performed at: 01 - [facility] [address] [id number] Electroplating Worker: Hamlet Santillan PhD, Phone: [phone] Ru Arrington MD LAB - URINE CHEMISTR Y ORDERABLES [facility] (NISHANT) from Last 3 Months or Most Recently Relevant to Health Maintenance Care Teams Social Security Specialist Relationship Specialty Start Date End Date Ru Arrington MD PCP - General 03/27/16
--- OUTSIDE RECORDS SUMMARY | 2024-10-25 13:04 | XMS_ITS ---
Author Organization [facility] Address [address] [place] [address] Care Team Providers Care Hose Tubing Backer Name Role Phone Chely Barth Primary Care Provider Kasia monterroso Thien Morales Unavailable [phone] Allergies Allergen (clinical drug ingredient) Drug/Non Drug Allergy documented on EMR Reaction Allergy Type Onset Date Status bupropion buPROPion HCl ER (XL) Unknown Drug Allergy Active codeine Codeine Unknown Drug Allergy 08/16/2022 Active REASON FOR VISIT follow-up, Elevated or Hypertensive blood pressure reading, Depression screening positive, MIPS diagnosis of HTN, Elevated or Hypertensive blood pressure reading Medications Medication SIG (Take, Route, Frequency, Duration) Notes Start Date End Date Status DULoxetine HCl 30 MG TAKE 1 CAPSULE EVERY DAY for 90 Active Breo Ellipta 100-25 MCG/ACT Inhalation for 90 Days Active Atorvastatin Calcium 40 MG Oral for 90 Days Active Spiriva HandiHaler 18 MCG Inhalation for 90 Days Active Spironolactone 25 MG Oral for 90 Days Active DULoxetine HCl 30 MG 1 capsule Orally Once a day for 90 days rx send on 10/03/24 Active Moxifloxacin HCl 0.5 % Ophthalmic for 22 Days Active Carvedilol 25 MG Oral for 90 Days Active Escitalopram Oxalate 20 MG Oral for 90 Days Not-Taking metFORMIN HCl ER 500 MG Oral for 90 Days Active busPIRone HCl 5 MG 1 tablet Oral Twice a day for 90 days Active Nitrofurantoin Monohyd Macro 100 MG Oral for 7 Days Not-Taking busPIRone HCl 7.5 MG Oral for 90 Days Not-Taking Sertraline HCl 25 MG 1 tablet Orally Once a day for 90 days rx send on 10/03/24 10/03/2024 Active Escitalopram Oxalate 10 MG Oral for 60 Days Not-Taking Social History Tobacco Use: Social History Observation Description Date Details (start date - stop date) Never Smoker NA - NA Sex Assigned At : Social History Observation Description Sex Assigned At Female Tobacco Control (Standard) Question Answer Notes Tobacco use: Nonsmoker Vital Signs Blood pressure systolic 141 mm Hg 10/03/19 25 Blood pressure diastolic 82 mm Hg 025 Height 66.00 in 10/03/2024 Weight 184 lbs 10/03/2024 BMI 29.7 kg/m2 10/03/2024 Height-cm 167.64 cm 10/03/2024 Weight-kg 83.464 kg 10/03/2024 Encounters Encounter Location Date Provider Diagnosis [facility] [address] [address] 10/03/2024 Thien Morales Major depressive disorder, recurrent severe without psychotic features F33.2 ; Essential (primary) hypertension I10 ; Generalized anxiety disorder F41.1 ; Hyperlipidemia E78.5 ; Chronic obstructive pulmonary disease J44.9 ; Type 2 diabetes mellitus with hyperlipidemia E11.69 ; ENA (generalized anxiety disorder) F41.1 and Benign essential HTN I10 Assessments Encounter Date Diagnosis (ICD Code) Assessment Notes Treatment Notes Treatment Clinical Notes Section Notes 10/03/2024 Major depressive disorder, recurrent severe without psychotic features (ICD-10 - F33.2) 10/03/2024 Essential (primary) hypertension (ICD-10 - I10) 10/03/2024 Generalized anxiety disorder (ICD-10 - F41.1) 10/03/2024 Hyperlipidemia (ICD-10 - E78.5) 10/03/2024 Chronic obstructive pulmonary disease (ICD-10 - J44.9) 10/03/2024 Type 2 diabetes mellitus with hyperlipidemia (ICD-10 - E11.69) 10/03/2024 ENA (generalized anxiety disorder) (ICD-10 - F41.1) 10/03/2024 Benign essential HTN (ICD-10 - I10) 10/03/2024 Other Anxiety disorder - Assessment: Patient reports increased anxiety over the last couple of months, with symptoms of fear and shakiness in the mornings. Currently taking half a Xanax as needed and practicing grounding techniques. - Plan: - Discontinue buspirone. - Start sertraline 25 mg once daily in the morning. - Reassess in 4 weeks for potential dose adjustment. - Encourage continued use of grounding techniques. - Consider referral to a new therapist if needed. Major depressive disorder - Assessment: Patient reports increased depression over the last couple of months. Currently on duloxetine, which has not been effective. History of treatment-resistant depression, having tried escitalopram and Wellbutrin with no improvement or adverse effects. - Plan: - Increase duloxetine to 60 mg daily. - Monitor response to sertraline (added for anxiety) as it may also help with depression. - Reassess in 4 weeks for potential dose adjustment or addition of another medication if needed. Family stressors - Assessment: Patient is dealing with multiple family stressors, including granddaughter's ADHD, daughter's health issues, and financial concerns. Patient is also concerned about the future care of her family. - Plan: - Encourage patient to seek additional support from a therapist or support group to help manage stress and improve coping skills. Memory concerns - Assessment: Patient reports poor memory and has not had cognitive testing in some time. - Plan: - Consider referral for neuropsychological evaluation to assess cognitive function and determine if further intervention is needed. Medication management - Assessment: Patient has difficulty remembering past medication trials and has issues with crushing buspirone when attempting to split the tablet. - Plan: - Provide a list of previous medication trials for reference. - Educate patient on proper techniques for splitting tablets or consider prescribing a lower dose tablet if available. Plan Of Treatment Medication Medication Name Sig Start Date Stop Date Notes DULoxetine HCl 30 MG 1 capsule Orally On ce a day for 90 days rx send on 10/03/24 Sertraline HCl 25 MG 1 tablet Orally Onc e a day for 90 days 10/03/2024 rx send on 10/03/24 Next Appt Details Follow Up: 4 Weeks, Reason: Provider Name:Thien Morales , 10/31/2024 01:00:00 PM, [address], [address], [place], [address], Provider Name:Sona Archuleta , 11/24/2024 03:00:00 PM, [address], [address], [place], [address], Progress Notes * LUCERO VIDAL JDOB:01/1950 (74 yo F)Acc No.[id number]:10/03/2024 Patient: LUCERO KNUTSON Provider: Mic MORALES MD :1950 A ge:74 Y S ex:Female Date:10/03/2024 Address:[address] [place], [place] [id number] Pcp:Chely Vargas [facility]- Subjective: * Chief Complaints: * F ollow-upElevated or Hypertensive blood pressure readingDepression screening positiveMIPS diagnosis of HTNElevated or Hypertensive blood pressure reading * HPI: D epression Screening: The note is transcribed using speech recognition software. It is a reflection of a visit with the patient. It might have some inaccuracy, including medication names and transcribing errors, though efforts have been made to correct them. Chief Complaint: Worsening anxiety and depression The patient presents with worsening anxiety and depression over the past couple of months, accompanied by a hearing impairment. She reports experiencing fear and shakiness most mornings upon waking, requiring half a Xanax for symptom relief. The patient notes that while Xanax reduces her anxiety, it never fully resolves. She has been utilizing grounding techniques to manage her symptoms and feels tired and fatigued. Medical History: - Anxiety - Depression - Memory issues (not formally diagnosed) - Hearing impairment Medications: Current: - Xanax (alprazolam) - half tablet as needed for anxiety - Duloxetine - current dosage not specified - BuSpar (buspirone) - current dosage not specified Past: - Escitalopram - taken in 2022, did not help - Wellbutrin - taken for a week in the past, caused physical illness The patient expresses a desire to discontinue buspirone due to perceived inefficacy. She is uncertain about past trials of venlafaxine or mirtazapine. Mental Health: The patient denies suicidal ideation or self-harm thoughts. She attributes her declining mental health to various stressors, including caring for her grandchildren, her daughter's health issues (borderline personality disorder and treatment- resistant depression), financial strain, and the lasting impact of caring for her late with Alzheimer's disease for a decade. Social History: - Lives with grandchildren - Has a 23-year-old daughter named Helen who has health issues - Granddaughter diagnosed with ADHD - Previously cared for spouse with Alzheimer's for 10 years Coping Mechanisms: The patient uses grounding techniques and medication (Xanax) to manage anxiety. Concerns: The patient reports concerns about her memory, noting it has not been formally evaluated recently. Additionally, she is worried about her granddaughter's ADHD diagnosis and the challenges it presents. Review of Systems: - Psychiatric: Increased anxiety and depression over last couple months, feels afraid and shaky most mornings upon waking, anxiety never fully leaves - Neurological: Memory issues reported - Constitutional: No thoughts of dying or hurting self. ENA-7 (2018 Edition) F eeling nervous, anxious, or on edge N early every day N ot being able to stop or control worrying?Nearly every day W orrying too much about different things N early every day T rouble relaxing S everal days B eing so restless that it is hard to sit still N ot at all B ecoming easily annoyed or irritable N ot at all F eeling afraid as if something awful might happen N early every day T otal ENA-7 Score 1 3 I nterpretation of Total ( 10 to 14) Moderate D epression screening: PHQ-9 L ittle interest or pleasure in doing things?More than half the days F eeling down, depressed, or hopeless M ore than half the days T rouble falling or staying asleep, or sleeping too much M ore than half the days F eeling tired or having little energy M ore than half the days P oor appetite or overeating S everal days F eeling bad about yourself or that you are a failure, or have let yourself or your family down M ore than half the days T rouble concentrating on things, such as reading the newspaper or watching television S everal days M oving or speaking so slowly that other people could have noticed; or the opposite, being so fidgety or restless that you have been moving around a lot more than usual S everal days T houghts that you would be better off or of hurting yourself in some way N ot at all T otal Score 1 3 I nterpretation M oderate Depression Intervention D epression Screening Findings P ositve F ollow-Up for Depression M ental health treatment assessment, Patient follow-up to return when and if necessary S uicide Risk Assessment Performed _ A dditional Evaluation for Depression P sychiatric interview and evaluation N eliud of the standardized tool used for adult depression screening: P atient Health Questionnaire (PHQ-9) * ROS: P atient not eligible due to active diagnosis of hypertension: G 9744. * Medical History: * Surgical History: O ther c-sections x2 08/06/1971Hysterectomy (89027) 08/06/1999 * Hospitalization/Major Diagno stic Procedure: * Social History: T obacco Use: T obacco Control (Standard) T obacco use: N stefany Wang iscellaneous: A dvance Care Planning A re you your own decision-maker Y es D o you have Power of Revenue Stamper for Health or Medical? N o * Medications: T akingMoxifloxacin HCl 0.5 % Solution Ophthalmic metFORMIN HCl ER 500 MG Tablet Extended Release 24 Hour Oral Carvedilol 25 MG Tablet Oral Atorvastatin Calcium 40 MG Tablet Oral Breo Ellipta 100-25 MCG/ACT Aerosol Powder Breath Activated Inhalation Spironolactone 25 MG Tablet Oral Spiriva HandiHaler 18 MCG Capsule Inhalation DULoxetine HCl 30 MG Capsule Delayed Release Particles TAKE 1 CAPSULE EVERY DAY busPIRone HCl 5 MG Tablet 1 tablet Oral Twice a day DULoxetine HCl 30 MG Capsule Delayed Release Particles 1 capsule Orally Once a day Taking Moxifloxacin HCl 0.5 % Solution Ophthalmic Taking metFORMIN HCl ER 500 MG Tablet Extended Release 24 Hour Oral Taking Carvedilol 25 MG Tablet Oral Taking Atorvastatin Calcium 40 MG Tablet Oral Taking Breo Ellipta 100-25 MCG/ACT Aerosol Powder Breath Activated Inhalation Taking Spironolactone 25 MG Tablet Oral Taking Spiriva HandiHaler 18 MCG Capsule Inhalation Taking DULoxetine HCl 30 MG Capsule Delayed Release Particles TAKE 1 CAPSULE EVERY DAY Taking busPIRone HCl 5 MG Tablet 1 tablet Oral Twice a day Taking DULoxetine HCl 30 MG Capsule Delayed Release Particles 1 capsule Orally Once a day Not-TakingbusPIRone HCl 7.5 MG Tablet Oral Nitrofurantoin Monohyd Macro 100 MG Capsule Oral Escitalopram Oxalate 10 MG Tablet Oral Escitalopram Oxalate 20 MG Tablet Oral Medication List reviewed and reconciled with the patientNot-Taking busPIRone HCl 7.5 MG Tablet Oral Not-Taking Nitrofurantoin Monohyd Macro 100 MG Capsule Oral Not-Taking Escitalopram Oxalate 10 MG Tablet Oral Not-Taking Escitalopram Oxalate 20 MG Tablet Oral Medication List reviewed and reconciled with the patient * Allergies: C odeine: Allergy - Onset Date 08/16/2022uPROPion HCl ER (XL): Side Effects - Criticality Low Objective: * Vitals: B P:141/82mm Hg, Wt:184lbs, Wt-k.464 kg, Ht: 66.00 in, Ht-cm: 167.64 cm, BMI:29.7Index, Body Surface Area: 1.97. * Examination: N eurology: Cognition Assessment Tools Used T otal score SLUMS 3 0 G eneral Examination: M ental Status Examination: Patient presents with increased anxiety and depression, reporting feelings of fear and shakiness most mornings. Utilizes alprazolam (Xanax) to manage acute anxiety symptoms. No suicidal ideation or self-harm thoughts reported. Reports poor memory, particularly over the last decade. Engages in grounding techniques to manage anxiety. Significant family stressors noted, including a granddaughter with ADHD and a daughter with treatment-resistant depression. Vital Signs: review the notes for vitals Physical Examination: Patient appears anxious. Patient reports memory impairment, no formal testing noted. Medication History: Patient has been on duloxetine and BuSpar, with plans to stop BuSpar and start sertraline. History of trying various medications for depression, including escitalopram and Wellbutrin, with limited success. Assessment: * Assessment: 1. M ajor depressive disorder, recurrent severe without psychotic features - F33.2 (Primary)? 2. E ssential (primary) hypertension - I10 3 . G eneralized anxiety disorder - F41.1 4 . H yperlipidemia - E78.5 5 . C hronic obstructive pulmonary disease - J44.9 6 . T ype 2 diabetes mellitus with hyperlipidemia - E11.69 7 . G AD (generalized anxiety disorder) - F41.1 8 . B enign essential HTN - I10 Plan: * Treatment: 2. O thers Clinical Notes: Anxiety disorder - Assessment: Patient reports increased anxiety over the last couple of months, with symptoms of fear and shakiness in the mornings. Currently taking half a Xanax as needed and practicing grounding techniques. - Plan: - Discontinue buspirone. - Start sertraline 25 mg once daily in the morning. - Reassess in 4 weeks for potential dose adjustment. - Encourage continued use of grounding techniques. - Consider referral to a new therapist if needed. Major depressive disorder - Assessment: Patient reports increased depression over the last couple of months. Currently on duloxetine, which has not been effective. History of treatment-resistant depression, having tried escitalopram and Wellbutrin with no improvement or adverse effects. - Plan: - Increase duloxetine to 60 mg daily. - Monitor response to sertraline (added for anxiety) as it may also help with depression. - Reassess in 4 weeks for potential dose adjustment or addition of another medication if needed. Family stressors - Assessment: Patient is dealing with multiple family stressors, including granddaughter's ADHD, daughter's health issues, and financial concerns. Patient is also concerned about the future care of her family. - Plan: - Encourage patient to seek additional support from a therapist or support group to help manage stress and improve coping skills. Memory concerns - Assessment: Patient reports poor memory and has not had cognitive testing in some time. - Plan: - Consider referral for neuropsychological evaluation to assess cognitive function and determine if further intervention is needed. Medication management - Assessment: Patient has difficulty remembering past medication trials and has issues with crushing buspirone when attempting to split the tablet. - Plan: - Provide a list of previous medication trials for reference. - Educate patient on proper techniques for splitting tablets or consider prescribing a lower dose tablet if available. * Procedure Codes: G 9744 Pt not sushma d/t act dig [id number] PREHTN/HTN BP DOC INDCD F/U [id number] MOST RECENT SYSTOLIC BP >= 140MM [id number] PREHTN/HTN BP DOC INDCD F/U [id number] BEHAV ASSMT W/SCORE & DOCD/STAND [id number] MOST RECENT SYSTOLIC BP >= 140MM [id number] CLIN DEPRESSION SCREEN DOC * Preventive Medicine: Counseling: B P Management: FIRST HYPERTENSIVE BP READING FOLLOW-UP PLAN: F autumnlow-up 1 month Follow up with your PCP LIFESTYLE RECOMMENDATION: Fabricio soliz education REFERRAL TO ALTERNATIVE / PRIMARY CARE PROVIDER: R eferral to general medical service WEIGHT REDUCTION RECOMMENDATION: W eight-reducing diet education DIETARY RECOMMENDATIONS: D iet education Dietary Healthy-Heart Diet A dvance Care Planning Date of last Advance Care Planning:?10/03/2024 ____ MIPS * Follow Up: 4 Weeks * Billing Information: * Visit Code: [id number] OFFICE OUTPATIENT VISIT 25 MINUTES DETAILED HISTORY AND EXAM/MODERATE MEDICAL DECISION MAKING. * Procedure Codes: G9744 Pt not sushma d/t act dig htn. G8950 PREHTN/HTN BP DOC INDCD F/U DOC. G8753 MOST RECENT SYSTOLIC BP >= 140MM HG. G8950 PREHTN/HTN BP DOC INDCD F/U DOC. 42920 BEHAV ASSMT W/SCORE & DOCD/STAND INSTRUMENT. G8753 MOST RECENT SYSTOLIC BP >= 140MM HG. G8431 CLIN DEPRESSION SCREEN DOC. * SPOOLER Sign off status: Completed true * Provider: Mic MORALES MD Date: 0 10/03/2024 Generated for Annie brown/Rosa/eTransmitting on: 0 10/25/2024 01:04 PM CDT History and Physical Notes * HPI (History of Present Illness) Category Sub-Category Detail Notes Category Not es Depression screening PHQ-9 Little inte rest or pleasure in doing things: More than half the days Feeling down, depressed, or hopeless: Mo re than half the days Trouble falling or staying a sleep, or sleeping too much: More than half the days Feeling tired or having little energy: M ore than half the days Poor appetite or overeating: Several day s Feeling bad about yourself o r that you are a failure, or have let yourself or your family down: More than half the days Trouble concentrating on thi ngs, such as reading the newspaper or watching television: Several days Moving or speaking so slowly that other people could have noticed; or the opposite, being so fidgety or restless that you have been moving around a lot more than usual: Several days Thoughts that you would be b valeria off or of hurting yourself in some way: Not at all Total Score: 13 Interpretation: Moderate Depression Intervention Depression Screening Findings: P ositve Follow-Up for Depression: Me ntal health treatment assessment, Patient follow-up to return when and if necessary Suicide Risk Assessment Performed: Additional Evaluation for Depression: Ps ychiatric interview and evaluation Name of the standardized too l used for adult depression screening:: Patient Health Questionnaire (PHQ-9) Depression Screening ENA-7 (2018 Edition) Feelin g nervous, anxious, or on edge: Nearly every day Not being able to stop or control worryi ng: Nearly every day Worrying too much about different things : Nearly every day Trouble relaxing: Several days Being so restless that it is hard to sit still: Not at all Becoming easily annoyed or irritable: No t at all Feeling afraid as if something awful shannan ht happen: Nearly every day Total ENA-7 Score: 13 Interpretation of Total: (10 to 14) Mode rate Examination Category Sub-Category Detail Notes Category Not es Neurology Cognition Assessment Tools Used Total score SLUMS: 30 General Examination Mental Status Examination: Patient presents with increased anxiety and depression, reporting feelings of fear and shakiness most mornings. Utilizes alprazolam (Xanax) to manage acute anxiety symptoms. No suicidal ideation or self-harm thoughts reported. Reports poor memory, particularly over the last decade. Engages in grounding techniques to manage anxiety. Significant family stressors noted, including a granddaughter with ADHD and a daughter with treatment-resistant depression. Vital Signs: review the notes for vitals Physical Examination: Patient appears anxious. Patient reports memory impairment, no formal testing noted. Medication History: Patient has been on duloxetine and BuSpar, with plans to stop BuSpar and start sertraline. History of trying various medications for depression, including escitalopram and Wellbutrin, with limited success.
--- OUTSIDE RECORDS SUMMARY | 2024-10-25 13:04 | XMS_ITS ---
Author Organization [facility] [employer] Address [address] [place] [address] Care Team Providers Care Community Outreach Worker Name Role Phone Alicia Chely HARTMANN Primary Care Provider Kasia monterroso Thien Morales Unavailable [phone] Allergies Allergen (clinical drug ingredient) Drug/Non Drug Allergy documented on EMR Reaction Allergy Type Onset Date Status codeine Codeine Unknown Drug Allergy 08/16/2022 Active REASON FOR VISIT follow up medication eval, phq less than 5, PSYCHOTHERAPY W/PATIENT W/E M, MIPS Normal BP no followup required for BP Medications Medication SIG (Take, Route, Frequency, Duration) Notes Start Date End Date Status Nitrofurantoin Monohyd Macro 100 MG Oral for 7 Days Not-Taking busPIRone HCl 7.5 MG Oral for 90 Days Not-Taking Escitalopram Oxalate 10 MG Oral for 60 Days Not-Taking Escitalopram Oxalate 20 MG Oral for 90 Days Not-Taking DULoxetine HCl 30 MG 1 capsule Orally On ce a day for 90 days Active DULoxetine HCl 30 MG TAKE 1 CAPSULE EVER Y DAY for 90 Active Spiriva HandiHaler 18 MCG Inhalation for 90 Days Active busPIRone HCl 5 MG 1 tablet Oral Twice a day for 90 days Active Spironolactone 25 MG Oral for 90 Days Active Breo Ellipta 100-25 MCG/ACT Inhalation for 90 Days Activ e metFORMIN HCl ER 500 MG Oral for 90 Days Active Moxifloxacin HCl 0.5 % Ophthalmic for 22 Days Active Atorvastatin Calcium 40 MG Oral for 90 Days Active Carvedilol 25 MG Oral for 90 Days Active Social History Sex Assigned At : Social History Observation Description Sex Assigned At Female Vital Signs Blood pressure systolic 133 mm Hg 07/23/20 24 Blood pressure diastolic 84 mm Hg 024 Heart Rate 92 /min 07/23/2024 Height 66.00 in 07/23/2024 Weight 192.0 lbs 07/23/2024 BMI 30.99 kg/m2 07/23/2024 Height-cm 167.64 cm 07/23/2024 Weight-kg 87.09 kg 07/23/2024 Encounters Encounter Location Date Provider Diagnosis [facility] [employer] [address] [place] [address] 07/23/2024 Thien Morales Major depressive disorder, recurrent severe without psychotic features F33.2 ; Generalized anxiety disorder F41.1 ; Hyperlipidemia E78.5 ; Chronic obstructive pulmonary disease J44.9 ; Type 2 diabetes mellitus with hyperlipidemia E11.69 and ENA (generalized anxiety disorder) F41.1 Assessments Encounter Date Diagnosis (ICD Code) Assessment Notes Treatment Notes Treatment Clinical Notes Section Notes 07/23/2024 Major depressive disorder, recurrent severe without psychotic features (ICD-10 - F33.2) Anxiety and Depression - Plan: - Continue duloxetine 30 mg daily. - Taper BuSpar to 5 mg twice a day when the current prescription is almost finished. - Encourage the patient to continue practicing self-awareness and setting boundaries. - Reassess the patient's progress in 2 months. - Monitor effectiveness of light therapy device once it arrives. Arthritis (back and hips) - Plan: - Encourage the patient to continue with activity modification and rest periods. - Consider referral to physical therapy or pain management if symptoms worsen or do not improve. - Recommend continued use of heating pad for 20 minutes to alleviate pain. Caregiver stress - Plan: - Encourage open communication with family members regarding her limitations and needs. - Consider referral to a support group or counseling if the patient feels overwhelmed or needs additional support. Medication management - Plan: - Discontinue automatic refills for BuSpar. - Prescribe duloxetine 30 mg daily for 2 months. - Prescribe BuSpar 5 mg twice a day when the current prescription is almost finished. - Reassess medication effectiveness and tolerability during the next visit in 2 months. 07/23/2024 Generalized anxiety disorder (ICD-10 - F41.1) Anxiety and Depression - Plan: - Continue duloxetine 30 mg daily. - Taper BuSpar to 5 mg twice a day when the current prescription is almost finished. - Encourage the patient to continue practicing self-awareness and setting boundaries. - Reassess the patient's progress in 2 months. - Monitor effectiveness of light therapy device once it arrives. Arthritis (back and hips) - Plan: - Encourage the patient to continue with activity modification and rest periods. - Consider referral to physical therapy or pain management if symptoms worsen or do not improve. - Recommend continued use of heating pad for 20 minutes to alleviate pain. Caregiver stress - Plan: - Encourage open communication with family members regarding her limitations and needs. - Consider referral to a support group or counseling if the patient feels overwhelmed or needs additional support. Medication management - Plan: - Discontinue automatic refills for BuSpar. - Prescribe duloxetine 30 mg daily for 2 months. - Prescribe BuSpar 5 mg twice a day when the current prescription is almost finished. - Reassess medication effectiveness and tolerability during the next visit in 2 months. 07/23/2024 Hyperlipidemia (ICD-10 - E78.5) Anxiety and Depression - Plan: - Continue duloxetine 30 mg daily. - Taper BuSpar to 5 mg twice a day when the current prescription is almost finished. - Encourage the patient to continue practicing self-awareness and setting boundaries. - Reassess the patient's progress in 2 months. - Monitor effectiveness of light therapy device once it arrives. Arthritis (back and hips) - Plan: - Encourage the patient to continue with activity modification and rest periods. - Consider referral to physical therapy or pain management if symptoms worsen or do not improve. - Recommend continued use of heating pad for 20 minutes to alleviate pain. Caregiver stress - Plan: - Encourage open communication with family members regarding her limitations and needs. - Consider referral to a support group or counseling if the patient feels overwhelmed or needs additional support. Medication management - Plan: - Discontinue automatic refills for BuSpar. - Prescribe duloxetine 30 mg daily for 2 months. - Prescribe BuSpar 5 mg twice a day when the current prescription is almost finished. - Reassess medication effectiveness and tolerability during the next visit in 2 months. 07/23/2024 Chronic obstructive pulmonary disease (ICD-10 - J44.9) Anxiety and Depression - Plan: - Continue duloxetine 30 mg daily. - Taper BuSpar to 5 mg twice a day when the current prescription is almost finished. - Encourage the patient to continue practicing self-awareness and setting boundaries. - Reassess the patient's progress in 2 months. - Monitor effectiveness of light therapy device once it arrives. Arthritis (back and hips) - Plan: - Encourage the patient to continue with activity modification and rest periods. - Consider referral to physical therapy or pain management if symptoms worsen or do not improve. - Recommend continued use of heating pad for 20 minutes to alleviate pain. Caregiver stress - Plan: - Encourage open communication with family members regarding her limitations and needs. - Consider referral to a support group or counseling if the patient feels overwhelmed or needs additional support. Medication management - Plan: - Discontinue automatic refills for BuSpar. - Prescribe duloxetine 30 mg daily for 2 months. - Prescribe BuSpar 5 mg twice a day when the current prescription is almost finished. - Reassess medication effectiveness and tolerability during the next visit in 2 months. 07/23/2024 Type 2 diabetes mellitus with hyperlipidemia (ICD-10 - E11.69) Anxiety and Depression - Plan: - Continue duloxetine 30 mg daily. - Taper BuSpar to 5 mg twice a day when the current prescription is almost finished. - Encourage the patient to continue practicing self-awareness and setting boundaries. - Reassess the patient's progress in 2 months. - Monitor effectiveness of light therapy device once it arrives. Arthritis (back and hips) - Plan: - Encourage the patient to continue with activity modification and rest periods. - Consider referral to physical therapy or pain management if symptoms worsen or do not improve. - Recommend continued use of heating pad for 20 minutes to alleviate pain. Caregiver stress - Plan: - Encourage open communication with family members regarding her limitations and needs. - Consider referral to a support group or counseling if the patient feels overwhelmed or needs additional support. Medication management - Plan: - Discontinue automatic refills for BuSpar. - Prescribe duloxetine 30 mg daily for 2 months. - Prescribe BuSpar 5 mg twice a day when the current prescription is almost finished. - Reassess medication effectiveness and tolerability during the next visit in 2 months. 07/23/2024 ENA (generalized anxiety disorder) (ICD-10 - F41.1) Anxiety and Depression - Plan: - Continue duloxetine 30 mg daily. - Taper BuSpar to 5 mg twice a day when the current prescription is almost finished. - Encourage the patient to continue practicing self-awareness and setting boundaries. - Reassess the patient's progress in 2 months. - Monitor effectiveness of light therapy device once it arrives. Arthritis (back and hips) - Plan: - Encourage the patient to continue with activity modification and rest periods. - Consider referral to physical therapy or pain management if symptoms worsen or do not improve. - Recommend continued use of heating pad for 20 minutes to alleviate pain. Caregiver stress - Plan: - Encourage open communication with family members regarding her limitations and needs. - Consider referral to a support group or counseling if the patient feels overwhelmed or needs additional support. Medication management - Plan: - Discontinue automatic refills for BuSpar. - Prescribe duloxetine 30 mg daily for 2 months. - Prescribe BuSpar 5 mg twice a day when the current prescription is almost finished. - Reassess medication effectiveness and tolerability during the next visit in 2 months. Plan Of Treatment Medication Medication Name Sig Start Date Stop Date Notes DULoxetine HCl 30 MG 1 capsule Orally On ce a day for 90 days busPIRone HCl 5 MG 1 tablet Oral Twice a day for 90 days Next Appt Details Follow Up: 2 Months, Reason: Provider Name:Thien Morales , 10/31/2024 01:00:00 PM, [address], [address], [address], Provider Name:Sona Archuleta , 11/24/2024 03:00:00 PM, [address], [place] [address], [place], [address], Progress Notes * LUCERO VIDALDOB:01/1950 (74 yo F)Acc No.[id number]:07/23/2024 Patient: Lizz LUCERO TENA Provider: Mic MORALES MD :1950 A ge:74 Y S ex:Female Date:07/23/2024 Address:[facility] Pcp:Chely Vargas [facility] Subjective: * Chief Complaints: * F ollow up medication evalPhq less than 5PSYCHOTHERAPY W/PATIENT W/E MMIPS Normal BP no follow up required for BP * HPI: D epression screening: The note is transcribed using speech recognition software. It is a reflection of a visit with the patient. It might have some inaccuracy, including medication names and transcribing errors, though efforts have been made to correct them. Chief Complaint: Improvement in anxiety and depression The patient reports significant improvement in her anxiety and depression since her last visit approximately one month ago. She states that she has been working on accepting her limitations and learning to say no to certain activities. The patient has a history of arthritis in her back and hips, which has caused her to slow down and manage her pain. She has been focusing on finding a balance between activity and rest, and has been engaging in activities such as watching TV series and reading. Caregiving: The patient discusses her experience with caregiving for her with Alzheimer's and the challenges she faced when her daughter asked her to watch her grandchild. She acknowledges the difficulty in making the decision to say she could not care for the child at that time due to her 's needs. The patient now has two grandchildren living with her and has had to set boundaries regarding her physical limitations. Medication Management: The patient is currently taking duloxetine 30 mg and BuSpar 7.5 mg twice a day for her anxiety and depression. She expresses concerns about overthinking medication changes and difficulty with splitting the BuSpar tablets. Light Therapy: The patient mentions ordering a light therapy device, which was mistakenly delivered to [place]. She reports feeling better even without the light therapy. Pain Management: The patient discusses her efforts to manage her arthritis pain by taking breaks and using a heating pad. She also mentions having conversations with her family about her limitations, particularly regarding lifting and planning lead. Coping Mechanisms: The patient expresses a newfound ability to say no to activities that may cause her pain or discomfort, which she describes as a significant change in her life. She talks about rethinking holiday preparations to accommodate her physical limitations and finding alternative ways to enjoy time with her family. PHQ-9 L ittle interest or pleasure in doing things S everal days, F eeling down, depressed, or hopeless N ot at all, T rouble falling or staying asleep, or sleeping too much N ot at all, F eeling tired or having little energy S everal days, P oor appetite or overeating N ot at all, F eeling bad about yourself or that you are a failure, or have let yourself or your family down N ot at all, T rouble concentrating on things, such as reading the newspaper or watching television N ot at all, M oving or speaking so slowly that other people could have noticed; or the opposite, being so fidgety or restless that you have been moving around a lot more than usual N ot at all, T houghts that you would be better off or of hurting yourself in some way N ot at all, T otal Score 2 , Interpretation M inimal Depression. I ntervention D epression Screening Findings?Negative, S uicide Risk Assessment Performed 1 09/23/2023 . D epression Screening: ENA-7 (2018 Edition) F eeling nervous, anxious, or on edge?Several days, N ot being able to stop or control worrying S everal days, W orrying too much about different things S everal , T rouble relaxing N ot at all, B eing so restless that it is hard to sit still N ot at all, B ecoming easily annoyed or irritable?Not at all, F eeling afraid as if something awful might happen S everal , T otal ENA-7 Score 4 , I nterpretation of Total ( 0 to 4) No Anxiety. P sychotherapy with Med eval: Therapy with Med eval P sychotherapy with Medication management Y es, P sychotherapy done Time Spent Minute 1 6 Min, T ype of therapy done S upportive Therapy. * ROS: N ormal blood pressure reading documented, follow-up not required ( G8783). * Medical History: * Surgical History: * Hospitalization/Major Diagno stic Procedure: * Medications: T akingbusPIRone HCl 7.5 MG Tablet 1 tablet Oral Twice a day DULoxetine HCl 30 MG Capsule Delayed Release Particles 1 capsule Orally Once a day Moxifloxacin HCl 0.5 % Solution Ophthalmic metFORMIN HCl ER 500 MG Tablet Extended Release 24 Hour Oral Carvedilol 25 MG Tablet Oral Atorvastatin Calcium 40 MG Tablet Oral Breo Ellipta 100-25 MCG/ACT Aerosol Powder Breath Activated Inhalation Spironolactone 25 MG Tablet Oral Spiriva HandiHaler 18 MCG Capsule Inhalation DULoxetine HCl 30 MG Capsule Delayed Release Particles TAKE 1 CAPSULE EVERY DAY Taking busPIRone HCl 7.5 MG Tablet 1 tablet Oral Twice a [...] Release Particles TAKE 1 CAPSULE EVERY DAY Not-TakingbusPIRone HCl 7.5 MG Tablet Oral Nitrofurantoin [...] Allergies: C odeine: Allergy - Onset Date 08/16/2022no[Allergies Verified] Objective: * Vitals: B P:133/84mm Hg, HR:92/min, Wt:192.0lbs, Wt-k.09 kg, Ht: 66.00 in, Ht-cm: 167.64 cm, BMI:30.99Index, Body Surface Area: 2.01. * Examination: G eneral Examination: M ental Status Examination: Patient reports feeling significantly better compared to the last visit. Demonstrates insight into personal limitations and stressors. Exhibits acceptance of her physical and mental health conditions. No acute distress observed during the visit. Patient shows improved ability to set boundaries and say no when necessary. Demonstrates better coping strategies for managing anxiety and depression. Physical Examination: Patient reports arthritis in back and hips, which impacts mobility and daily activities. Describes pain management as crucial and identifies limitations in physical activities, specifically lifting. Patient mentions using a heating pad for pain relief. For Vitals see the note. Assessment: * Assessment: 1. M ajor depressive disorder, recurrent severe without psychotic features - F33.2 (Primary)? 2. G eneralized anxiety disorder - F41.1 3 . H yperlipidemia - E78.5 4 . C hronic obstructive pulmonary disease - J44.9 5 . Type 2 diabetes mellitus with hyperlipidemia - E11.69 6 . G AD (generalized anxiety disorder) - F41.1 Anxiety and Depression - Plan: - Continue duloxetine 30 mg daily. - Taper BuSpar to 5 mg twice a day when the current prescription is almost finished. - Encourage the patient to continue practicing self-awareness and setting boundaries. - Reassess the patient's progress in 2 months. - Monitor effectiveness of light therapy device once it arrives. Arthritis (back and hips) - Plan: - Encourage the patient to continue with activity modification and rest periods. - Consider referral to physical therapy or pain management if symptoms worsen or do not improve. - Recommend continued use of heating pad for 20 minutes to alleviate pain. Caregiver stress - Plan: - Encourage open communication with family members regarding her limitations and needs. - Consider referral to a support group or counseling if the patient feels overwhelmed or needs additional support. Medication management - Plan: - Discontinue automatic refills for BuSpar. - Prescribe duloxetine 30 mg daily for 2 months. - Prescribe BuSpar 5 mg twice a day when the current prescription is almost finished. - Reassess medication effectiveness and tolerability during the next visit in 2 months. Plan: * Treatment: 2. G AD (generalized anxiety disorder) Continue busPIRone HCl Tablet, 5 MG, 1 tablet, Oral, Twice a day, 90 days, 180 Tablet, Refills 0.? * Procedure Codes: 9 0833 PSYCHOTHERAPY W/PATIENT W/E&M SRVCS 30 [id number] NORMAL BP READING DOC F/U NOT [id number] BEHAV ASSMT W/SCORE & DOCD/STAND INSTRUMENT * Follow Up: 2 Months * Billing Information: * Visit Code: 91525 OFFICE OUTPATIENT VISIT 25 MINUTES DETAILED HISTORY AND EXAM/MODERATE MEDICAL DECISION MAKING. * Procedure Codes: 77475 PSYCHOTHERAPY W/PATIENT W/E&M SRVCS 30 MIN. G8783 NORMAL BP READING DOC F/U NOT RQR. 90133 BEHAV ASSMT W/SCORE & DOCD/STAND INSTRUMENT. * [employer] CONSULTANT Sign off status: Completed true * Provider: Mic MORALES MD Date: 09/23/2023 Generated for Annie brown/Rosa/eTransmitting on: 0 10/25/2024 01:04 PM CDT History and Physical Notes * HPI (History of Present Illness) Category Sub-Category Detail Notes Category Not es Depression screening PHQ-9 Little inte rest or pleasure in doing things: Several days Feeling down, depressed, or hopeless: No t at all Trouble falling or staying asleep, or sl eeping too much: Not at all Feeling tired or having little energy: S everal days Poor appetite or overeating: Not at all Feeling bad about yourself o r that you are a failure, or have let yourself or your family down: Not at all Trouble concentrating on thi ngs, such as reading the newspaper or watching television: Not at all Moving or speaking so slowly that other people could have noticed; or the opposite, being so fidgety or restless that you have been moving around a lot more than usual: Not at all Thoughts that you would be b valeria off or of hurting yourself in some way: Not at all Total Score: 2 Interpretation: Minimal Depression Intervention Depression Screening Findings: N egative Suicide Risk Assessment Performed: 07/23 Depression Screening ENA-7 (2018 Edition) Feelin g nervous, anxious, or on edge: Several days Not being able to stop or control worryi ng: Several days Worrying too much about different things : Several days Trouble relaxing: Not at all Being so restless that it is hard to sit still: Not at all Becoming easily annoyed or irritable: No t at all Feeling afraid as if something awful shannan ht happen: Several days Total ENA-7 Score: 4 Interpretation of Total: (0 to 4) No Anx iety Psychotherapy with Med eval Therapy with Med adriana l Psychotherapy with Medication management: Yes Psychotherapy done Time Spent Minute: 16 Min Type of therapy done: Supportive Therapy Examination Category Sub-Category Detail Notes Category Not es General Examination Mental Status Examination: Patient reports feeling significantly better compared to the last visit. Demonstrates insight into personal limitations and stressors. Exhibits acceptance of her physical and mental health conditions. No acute distress observed during the visit. Patient shows improved ability to set boundaries and say no when necessary. Demonstrates better coping strategies for managing anxiety and depression. Physical Examination: Patient reports arthritis in back and hips, which impacts mobility and daily activities. Describes pain management as crucial and identifies limitations in physical activities, specifically lifting. Patient mentions using a heating pad for pain relief. For Vitals see the note
--- OUTSIDE RECORDS SUMMARY | 2024-10-25 13:04 | XMS_ITS ---
Author Organization [facility] Address [facility] [facility] [address] [place] [address] Care Team Providers Care Machines Technician Name Role Phone Chely Barth Primary Care Provider Thien Antoine Unavailable [phone] REASON FOR VISIT refer for therapy Social History Sex Assigned At : Social History Observation Description Sex Assigned At Female Encounters Encounter Location Date Provider Diagnosis [facility] [address] [facility] [address] [place] [address] 10/03/2024 Thien Hagen Plan Of Treatment Next Appt Details Provider Name:Thien Hagen , 10/31/2024 01:00:00 PM, [address], [facility] [address], [address], Provider Name:Sona Archuleta , 11/24/2024 03:00:00 PM, [address], [address], [address], Progress Notes * LUCERO VIDALDOB:01/1950 (74 yo F)Acc No.[id number]:10/03/2024 Patient: Lizz LUCERO TENA :1950 A ge:74 Y S ex:Female Address:[address] , [place], [address] * true * Date: Generated for Printi ng/Faxing/eTransmitting on: 0 10/25/2024 01:04 PM CDT
--- OUTSIDE RECORDS SUMMARY | 2024-10-25 13:05 | XMS_ITS | Clinical Summary ---
Author Organization [facility] [place] [address] [facility] Address [address] [place] [address] Care Team Providers Care Cobbler Apprentice Name Role Phone Chely Vargas NP Primary Care Provider [phone] Allergies Active Allergy Reactions Criticality Noted Date Comments Codeine Vomiting Low 04/21/2021 Medications aspirin 81 mg chewable tablet Take 1 tablet (81 mg total) by mouth daily Active multivitamin (MULTIPLE VITAMINS DAILY ORAL) Take by mouth Acti ve albuterol HFA (PROVENTIL HFA,VENTOLIN HFA,PROAIR HFA) 90 mcg/actuation inhalerIndications :SOB (shortness of breath) Inhale 1 puff every 6 (six) hours as needed for wheezing 18 g 1 4 Active busPIRone (BUSPAR) 7.5 mg tabletIndications: Anxiety TAKE 1 TABLET TWICE DAILY 180 tablet 3 4 Active spironolactone (ALDACTONE) 25 mg tablet TAKE 1 TABLET EVERY DAY 90 tablet 3 4 Active fluticasone furoate-vilanteroL (Breo Ellipta) 100-25 mcg/dose diskus inhalerIndications :Simple chronic bronchitis (HCC) INHALE 1 PUFF DAILY. RINSE MOUTH WITH WATER AFTER USE. DO NOT SWALLOW. 3 each 3 4 Active atorvastatin (LIPITOR) 40 mg tablet TAKE 1 TABLET EVERY DAY 90 tablet 3 4 Active carvediloL (COREG) 25 mg tabletIndications: Essential (primary) hypertension TAKE 1 TABLET TWICE DAILY WITH MEALS 180 tablet 3 5 Active metFORMIN XR (GLUCOPHAGE XR) 500 mg 24 hr tabletIndications: Type 2 diabetes mellitus with hyperlipidemia (HCC) TAKE 2 TABLETS EVERY DAY WITH BREAKFAST 180 tablet 3 5 Active ALPRAZolam (XANAX) 0.25 mg tabletIndications: Moderate episode of recurrent major depressive disorder (HCC) TAKE 1 TABLET THREE TIMES DAILY NEEDED FOR ANXIETY 90 tablet 5 Active Spiriva with HandiHaler 18 mcg per inhalation capsuleIndications :Simple chronic bronchitis (HCC) INHALE THE CONTENTS OF 1 CAPSULE EVERY DAY 90 capsule 3 5 Active Active Problems Problem Noted Date Diagnosed Date Obesity, morbid, BMI 40.0-49.9 05/26/2024 Assessment & Plan (05/26/2024 1:35 PM CDT): Discussed the patient's BMI. The BMI is above average. BMI management plan is completed. BMI Follow-up includes: nutrition counseling, exercise counseling and education provided. UTI symptoms 12/21/2023 Overview (12/21/2023): take antibiotics as directed. Will send for culture. Notify the office without improvement of symptoms Conjunctivochalasis of right eye 11/29/2023 BMI 32.0-32.9,adult 10/01/2023 Entropion and trichiasis of eyelid, right 2023 Assessment & Plan (11/29/2023 12:27 AM CDT): Risks, benefits and alternatives were discussed. Risks included but were not limited to pain, infection, bleeding, scarring, eyelid asymmetry, need for additional procedures, and anesthetic morbidity. Following this discussion, the patient wishes to proceed with right lower eyelid (RLL) entropion repair with cul-de-sac reconstruction. We will schedule this in the near future. Assessment & Plan (09/17/2023 1:03 PM TIRE RETREADER): Images from the original note were not included. Likely contributing to epi defect, will refer to oculoplastics. Recurrent major depressive disorder, in partial remission 09/04/2023 Overview (09/04/2023): Decrease Lexapro to 10 mg for 2 weeks then 5 mg for 2 weeks then stop. Follow-up 1 month Corneal ulcer, right 06/11/2023 Assessment & Plan (09/17/2023 1:02 PM TIRE RETREADER): Patient initially seen 06/09/23 in the ED - concern for herpetic ulcer OD, started on moxi and valtrex. Eventually started on pred in addition to moxi, valtrex stopped when epi defect healed last visit. Today, patient has lid laxity with entropion causing trichiasis, with lash touch in the area of epi defect. Will refer patient to oculoplastics to discuss possible electrolysis (patient is very anxious and would like to avoid surgery). Did not epilate lashes today so that the offending lashes are visible at the oculoplastics appointment. PLAN Stop prednisolone Start moxi BID again KAYE 2 months for anterior check (okay to cancel if she sees oculoplastics sooner) Patient to call if she experiences worsening eye pain or vision. Assessment & Plan (07/02/2023 1:14 PM TIRE RETREADER): Corneal ulcer, on Moxi BID At last visit epi defect had healed, was told to start PF 2-3 days prior to visit Today exam with decreased size of stromal haze (1x1 from 1.5x1.5) without epi defect Culture growing rare P. Acnes Plan: Continue Moxi BID for ppx out of an abundance of precaution Continue PF QID Stop valtrex Assessment & Plan (06/18/2023 12:27 PM TIRE RETREADER): Today epi defect completely healed over. Normal K sensation OU. Decrease Moxi BID, Valtrex 1g BID (out of abundance of caution and given starting on PF) Start on prednisonole 2-3 days prior to next visit. Consider stopping Valtrex at this visit. Assessment & Plan (06/11/2023 1:27 PM TIRE RETREADER): --Exam today notable for subjective improvement in eye discomfort, light sensitivity; Objectively with VA ph 20/50 OD, normal IOP, 1.5x1.5mm epi defect with central thinning up to 60% NST and <1mm infiltrate. Appears to be responding to moxifloxacin eye drops. --Bacterial, viral, fungal cultures from 06/09 with no growth to date --DDx includes bacterial ulcer (especially iso significant injection) vs viral PLAN --Decrease frequency moxifloxacin gtts to QID --Continue Valtrex 1g TID --Strict return precautions (iso worsening vision, pain, swelling, other concerning eye sx) discussed. Pt seen and discussed with Dr. Mars. Age-related osteoporosis wit hout current pathological fracture 02/28/2023 Obesity (BMI 30-39.9) 09/27/2022 Assessment & Plan (01/30/2024 11:09 AM CDT): Discussed the patient's BMI. The BMI is above average. BMI management plan is completed. BMI Follow-up includes: nutrition counseling, exercise counseling and education provided. Assessment & Plan (12/18/2023 2:43 PM CDT): Discussed the patients BMI: The BMI is above average BMI management is complete. BMI follow-up includes: Nutrition Counseling and education provided Assessment & Plan (10/01/2023 3:26 PM TIRE RETREADER): Discussed the patient's BMI. The BMI is above average. BMI management plan is completed. BMI Follow-up includes: nutrition counseling, exercise counseling and education provided. Assessment & Plan (09/03/2023 2:10 PM TIRE RETREADER): Discussed the patient's BMI. The BMI is above average. BMI management plan is completed. BMI Follow-up includes: nutrition counseling, exercise counseling and education provided. Assessment & Plan (02/28/2023 1:41 PM CDT): Discussed the patients BMI: The BMI is above average BMI management is complete. BMI follow-up includes: Nutrition Counseling and education provided Assessment & Plan (09/27/2022 1:29 PM TIRE RETREADER): Discussed the patient's BMI. The BMI is above average. BMI management plan is completed. BMI Follow-up includes: nutrition counseling, exercise counseling and education provided. BMI 31.0-31.9,adult 06/23/2022 Assessment & Plan (01/30/2024 11:09 AM CDT): Discussed the patient's BMI. The BMI is above average. BMI management plan is completed. BMI Follow-up includes: nutrition counseling, exercise counseling and education provided. Assessment & Plan (09/27/2022 1:28 PM TIRE RETREADER): Discussed the patient's BMI. The BMI is above average. BMI management plan is completed. BMI Follow-up includes: nutrition counseling, exercise counseling and education provided. Assessment & Plan (06/23/2022 1:59 PM TIRE RETREADER): Obesity is unchanged. Discussed the patient's BMI. The BMI is above average. BMI management plan is completed. BMI Follow-up includes: nutrition counseling, exercise counseling and education provided. Cough 10/13/2021 Assessment & Plan (10/13/2021 9:26 AM TIRE RETREADER): We discussed symptoms likely viral, suspect a viral bronchitis with potential for progression. Will initiate prednisone, however advised Lanie that unfortunately this exam is limited as it is by phone. We discussed reporting to an urgent care/er if not improving in the next 48h, sooner if worsening. Encouraged increased fluids, rest Ibuprofen 600mg q6h prn fever Lower respiratory infection 10/13/2021 Assessment & Plan (10/13/2021 9:26 AM TIRE RETREADER): We discussed symptoms likely viral, suspect a viral bronchitis with potential for progression. Will initiate prednisone, however advised Lanie that unfortunately this exam is limited as it is by phone. We discussed reporting to an urgent care/er if not improving in the next 48h, sooner if worsening. Encouraged increased fluids, rest Ibuprofen 600mg q6h prn fever Shortness of breath 06/27/2021 Assessment & Plan (06/27/2021 11:34 AM TIRE RETREADER): Retrieve records from [facility] prednisone taper Continue with prn proventil Contact office in next 72h if not improving, sooner if worsening Anxiety 06/27/2021 Assessment & Plan (11/17/2021 12:57 PM CDT): Will increase xanax to 0.25mg tid prn anxiety Discussed adjusting strength if utilizing frequently Encouraged her to use the time is in the NH to care for herself, particularly by sleeping and resting better. She is currently working with a counselor and will continue to do so. She also notes that she has consulted with an elder shear operator automatic to help with insurance issues for her and this is helping. Assessment & Plan (06/27/2021 11:35 AM TIRE RETREADER): Increase buspar, continue with prn xanax We had a long discussion regarding and concerns for home situation. She was advised to contact ems/police if he becomes combative. She was advised not to leave him alone with great granddaughter due to concerns for behavioral issues. She will continue working with social work instructor regarding senior living care placement for him. Positive depression screening 04/21/2021 Cigarette smoker 04/21/2021 Chronic otitis externa of right ear 04/21/2021 Assessment & Plan (05/05/2021 1:12 PM CDT): She will use the drops for the next 3-5 days, and she will call if the symptoms are not resolving. Assessment & Plan (04/21/2021 2:46 PM CDT): Advised f/u in next week if not improving, sooner if worsening Episode of recurrent major depressive disorder 0 04/21/2021 Assessment & Plan (05/05/2021 1:12 PM CDT): Stable at this time, continue medications the same. She notes that she does have a pending appointment with the counselor that she will keep. We discussed adjusting the BuSpar if she continues to have flare ups of symptoms. Assessment & Plan (04/21/2021 2:46 PM CDT): Add buspar tid and prn xanax Makes pact to report to er if having s/h ideations Discussed contacting police if husb becoming combative. Encounter for Medicare annual wellness exam 04/06 Assessment & Plan (04/21/2021 2:45 PM CDT): Retrieve records from previous pcp Type 2 diabetes mellitus with hyperlipidemia Overview (04/21/2021): Last Assessment & Plan: A1c remains controlled. Continue metformin as prescribed. Encouraged increase in physical activity to help reduce insulin resistance. Adjustment disorder with depressed mood 09/04/19 12 Overview (04/21/2021): Last Assessment & Plan: Continue current citalopram. Unlikely to improve significantly due to household instability. Nicotine dependence, uncomplicated 07/04/2010 Overview (04/21/2021): Last Assessment & Plan: Continue to encourage tobacco cessation. States may be ready soon. Chronic obstructive pulmonary disease 05/26/2010 Overview (04/21/2021): Last Assessment & Plan: Symptomatically improved with addition of Breo. Continue current Rx. Assessment & Plan (06/27/2021 11:34 AM TIRE RETREADER): Retrieve records from [facility] prednisone taper Continue with prn proventil Contact office in next 72h if not improving, sooner if worsening Hypertension associated with diabetes 05/26/2010 Overview (04/21/2021): Last Assessment & Plan: Historically controlled BP; diastolic increased today. Continue current Rx for now. Consider increase in spironolactone if remains uncontrolled. Hyperlipidemia 05/26/2010 Resolved Problems Problem Noted Date Diagnosed Date Resolved Date Obesity, morbid, BMI 40.0-49.9 10/01/2023 12/18/2023 BMI 30.0-30.9,adult 04/21/2021 06/23/20 Assessment & Plan (04/21/2021 11:46 AM CDT): Obesity is unchanged. Discussed the patient's BMI. The BMI is above average. BMI management plan is completed. BMI Follow-up includes: nutrition counseling, exercise counseling and education provided. Obesity (BMI 30-39.9) 04/21/20212021 Assessment & Plan (04/21/2021 11:47 AM CDT): Obesity is unchanged. Discussed the patient's BMI. The BMI is above average. BMI management plan is completed. BMI Follow-up includes: nutrition counseling, exercise counseling and education provided. Encounters Date Type Department Care Team Description 09/04/2024 Orders Only [facility] Family Medicine [address] [place] [address] ProviderDonte MD 08/27/2024 Telephone [facility] Internal Medicine at [place] [address] [place] [address] Chely Vargas, RADAR MECHANIC Test Results from Last 3 Months Immunizations Immunization Administration Dates Next Due Hep B, Unspecified 08/29/2007 Influenza, Quad, Adjuvantate d, Intramuscular 04/29/2020 Influenza, Quadrivalent, Phuong l Culture-based MDCK, Preservative Free, Antibiotic Free, Intramuscular 05/17/2019 Influenza, Trivalent, High D ose, Split, Preservative Free, Intramuscular 05/26/2024,05/02/2018,05/15/2017,05/24 Influenza, Trivalent, IM (MDV) 6,05/08/2015,05/13/2014,05/08,05/10/2010 Influenza, Trivalent, Preser vative Free, Intramuscular 05/07/2015 Influenza, Unspecified 05/20/2023,2021,06/14/2021,05/02,05/03/2011 Pfizer SARS-CoV-2 Monovalent Vaccination (12+ Yrs) PURPLE 09/23/2021 Pneumococcal Conjugate PCV 13 07/28/2016 Pneumococcal Conjugate Pcv20 09/27/2022(Deferred : Patient Refused) Pneumococcal Polysaccharide PPV23 05/25/2010 TD Preservative Free 08/26/2002 Tdap 01/21/2013 ZOSTER LIVE 05/03/2011 Surgical History Surgery Date Site/Laterality Comments SECTION HYSTERECTOMY Medical History Medical History Date Comments Hypertension Diabetes mellitus (HCC) COPD (chronic obstructive pulmonary disease) (HC C) Depression Anxiety Family History Medical History Relation Name Comments No Known Problems Father Heart disease Mother Relation Name Status Comments Father Mother Social History Tobacco Use Types Packs/Day Years Used Date Smoking Tobacco: Every Day Cigarettes Tobacco Cessation:Ready to Q uit: Not Asked; Counseling Given: Not Answered PHQ-2 Answer Date Recorded PHQ-2 Total Score (If total score is 3 or more points, staff should administer the PHQ-9) 1 05/26/2024 PHQ-9 Answer Date Recorded PHQ-9 Total Score 6 01/30/2024 Personal Safety Answer Date Recorded Have you ever been in or are you currently in a harmful physical or emotional relationship or is someone making you feel afraid or unsafe? Denies 06/09/2023 Comments No Sex and Gender Information Value Date Recorded Sex Assigned at Not on file Legal Sex Female 12:25 PM TIRE RETREADER Gender Identity Female 04/30/2021 10:37 AM CDT Sexual Orientation Straight 04/30/2021 10 :37 AM CDT Obstetrics History Last Filed Vital Signs Vital Sign Reading Time Taken Comments Blood Pressure 138/76 05/26/2024 1:31 PM CDT Pulse 82 05/26/2024 1:31 PM CDT Temperature 37.2 C (99 F) 05/26/2024 1:31 PM CDT Respiratory Rate 16 01/30/2024 11:06 AM CDT Oxygen Saturation 93% 05/26/2024 1:31 PM CDT Inhaled Oxygen Concentration - - Weight 84.8 kg (187 lb) 05/26/2024 1:31 PM CDT Height 162.6 cm (5' 4 ) 05/26/2024 1:31 PM CDT Body Mass Index 32.1 05/26/2024 1:31 PM CDT Plan of Treatment Health Maintenance Due Date Last Done Comments Hepatitis C Screening 1950 Foot Exam 1950 Zoster Vaccine (2 of 3) 06/28/2011 05/03/2011 DTaP/Tdap/Td Vaccine (2 - Td or Tdap) 01/21/2023 01/21/2013, 08/26/2002 Covid-19 Vaccine (4 2023- 5 season) 2024 09/23/2021, 02/25/2021, 02/04/2021 Breast Cancer Screening-Mammogram 01/08/2025 024 Well Visit 65+ 01/29/2025 01/30/2024, 09/27/2022 Hemoglobin A1C 02/18/2025 08/21/2024, 08/07, 09/11/2022, Additional history exists Depression Screening 05/26/2025 05/26/2024, 01/30/2024, 01/30/2024, Additional history exists Fall Risk Assessment 05/26/2025 05/26/2024, 01/30/2024, 12/18/2023, Additional history exists Albumin Creatinine Ratio, Urine 08/21/2025 , 09/11/2022 Lipid Panel 08/21/2025 08/21/2024, 08/07, 09/11/2022 eGFR 08/21/2025 08/21/2024, 08/07, 09/11/2022 Dilated Eye Exam 09/01/2025 09/01/2024, 11/2022, 01/20/2022 Colon Cancer Screening-DNA Stool 12/08/2025 12/09/19 23, 11/22/2022 Osteoporosis Screening-Bone Density Scan 01/08/2026 01/09/2024 Hepatitis B Screening Completed 08/29/2007 Pneumococcal vaccine 65+ Discontinued 023, 07/28/2016, 05/25/2010 Influenza Vaccine Completed 05/26/2024, , 05/20/2023, Additional history exists Procedures Procedure Name Priority Date/Time Associated Diagnosis Comments DIABETIC EYE EXAM Routine 09/01/2024 1:4 2 PM TIRE RETREADER LIPID PANEL Routine 08/21/2024 11:01 AM TIRE RETREADER Type 2 diabetes mellitus with hyperlipidemia (HCC) HEMOGLOBIN A1C Routine 08/21/2024 11:01 AM TIRE RETREADER Hypertension associated with diabetes (HCC) Type 2 diabetes mellitus with hyperlipidemia (HCC) COMPREHENSIVE METABOLIC PANEL Routine 08/21/2024 11:01 AM TIRE RETREADER Hypertension associated with diabetes (HCC) ALBUMIN CREATININE RATIO, URINE Routine 08/21/2024 11:01 AM TIRE RETREADER Hypertension associated with diabetes (HCC) DEXA AXIAL SKELETON BONE DENSITY 1 OR MORE SITES Schedule Routine, Read Routine (OP Routine) 01/09/2024 Screening for osteoporosis Age-related osteoporosis without current pathological fracture SCREENING MAMMOGRAM BILATERAL W GREY Schedule Routine, Read Routine (OP Routine) 01/09/2024 Encounter for screening mammogram for malignant neoplasm of breast STOOL DNA COLOGUARD Routine 12/08/2022 3:30 PM CDT from Last 3 Months or Most Recently Relevant to Health Maintenance Results * Diabetic Eye Exam (09/01/2024 1:42 PM TIRE RETREADER) Historical Provider MD HEALTH MAINTENANCE Final Result * (ABNORMAL) Albumin Creatinine Ratio, Urine (08/21/2024 11:01 AM TIRE RETREADER) Creatinine, ur 46 20 - 275 mg/dL [facility] Microalbumin, ur 1.5 See Note: mg/dL [facility] Comment: Reference Range: Reference Range Not established Microalbumin/creat ratio 33(H) <30 mg/g creat [facility] Comment: The ADA defines abnormalities in albumin excretion as follows: Albuminuria Category Result (mg/g creatinine) Normal to Mildly increased <30 Moderately increased 30-299 Severely increased > OR = 300 The ADA recommends that at least two of three specimens collected within a 3-6 month period be abnormal before considering a patient to be within a diagnostic category. Urine 08/21/2024 11:0 1 AM TIRE RETREADER 08/21/2024 11:06 AM TIRE RETREADER Narrative [facility] - 08/22/2024 5:38 AM TIRE RETREADER FASTING:YES FASTING: YES Chely Vargas NP LAB URINE ORDERABLES Final Re sult [facility] [address] [place] [address] * (ABNORMAL) Hemoglobin A1c (08/21/2024 11:01 AM TIRE RETREADER) Hgb A1C 6.3(H) <5.7 % of total Hgb [facility] Comment: For someone without known diabetes, a hemoglobin A1c value between 5.7% and 6.4% is consistent with prediabetes and should be confirmed with a follow-up test. For someone with known diabetes, a value <7% indicates that their diabetes is well controlled. A1c targets should be individualized based on duration of diabetes, age, comorbid conditions, and other considerations. This assay result is consistent with an increased risk of diabetes. Currently, no consensus exists regarding use of hemoglobin A1c for diagnosis of diabetes for children. Blood 08/21/2024 11:0 1 AM TIRE RETREADER 08/21/2024 11:06 AM TIRE RETREADER Narrative [facility] - 08/22/2024 5:38 AM TIRE RETREADER FASTING:YES FASTING: YES us Chely Vargas NP LAB BLOOD ORDERABLES Final Re sult Performing Organization Address [facility] Co de Phone Number [facility] [address] [place] [address] * (ABNORMAL) Lipid panel (08/21/2024 11:01 AM TIRE RETREADER) Cholesterol 117 <200 mg/dL [facility] HDL 41(L) > OR = 50 mg/dL [facility] Triglycerides 172(H) <150 mg/dL [facility] LDL 51 mg/dL (calc) [facility] Comment: Reference range: <100 Desirable range <100 mg/dL for primary prevention; <70 mg/dL for patients with CHD or diabetic patients with > or = 2 CHD risk factors. LDL-C is now calculated using the Scout calculation, which is a validated novel method providing better accuracy than the Friedewald equation in the estimation of LDL-C. Dave BRISCOE et al. OFE. 2013;310(19): 3563-5863 (http://education.[facility].com/faq/WCO373) Chol/HDL ratio 2.9 <5.0 (calc) [facility] Non-HDL, (LDL+VLDL) 76 <130 mg/dL (calc) [facility] Comment: For patients with diabetes plus 1 major ASCVD risk factor, treating to a non-HDL-C goal of <100 mg/dL (LDL-C of <70 mg/dL) is considered a therapeutic option. Blood 08/21/2024 11:0 1 AM TIRE RETREADER 08/21/2024 11:06 AM TIRE RETREADER Narrative [facility] - 08/22/2024 5:38 AM TIRE RETREADER FASTING:YES FASTING: YES us Chely Vargas RADAR MECHANIC LAB BLOOD ORDERABLES Final Re sult [facility] [address] [place] [address] * (ABNORMAL) Comprehensive metabolic panel (08/21/2024 11:01 AM TIRE RETREADER) Pathologist [facility] Glucose 153(H) 65 - 99 mg/dL [facility] Comment: Fasting reference interval For someone without known diabetes, a glucose value >125 mg/dL indicates that they may have diabetes and this should be confirmed with a follow-up test. BUN 13 7 - 25 mg/dL [facility] Creatinine 0.63 0.60 - 1.00 mg/dL [facility] eGFR 94 > OR = 60 mL/min/1.7 3m2 [facility] BUN/creat ratio SEE NOTE: 6 - 22 (calc) [facility] Comment: Not Reported: BUN and Creatinine are within reference range. Sodium 134(L) 135 - 146 mmol/L [facility] Potassium, pl 5.2 3.5 - 5.3 mmol/L [facility] Chloride 93(L) 98 - 110 mmol/L [facility] CO2 35(H) 20 - 32 mmol/L [facility] Calcium 10.0 8.6 - 10.4 mg/dL [facility] Protein, sr 6.7 6.1 - 8.1 g/dL [facility] Albumin 4.0 3.6 - 5.1 g/dL [facility] GLOBULIN 2.7 1.9 - 3.7 g/dL (calc) [facility] Alb/glob ratio 1.5 1.0 - 2.5 (calc) [facility] Bilirubin, total 1.0 0.2 - 1.2 mg/dL [facility] Alk phos 62 37 - 153 U/L [facility] AST 16 10 - 35 U/L [facility] ALT (SGPT) 15 6 - 29 U/L [facility] Blood 08/21/2024 11:0 1 AM TIRE RETREADER 08/21/2024 11:06 AM TIRE RETREADER Narrative [facility] - 08/22/2024 5:38 AM TIRE RETREADER FASTING:YES FASTING: YES Chely Vargas RADAR MECHANIC LAB BLOOD ORDERABLES Final Re sult [facility] [address] [place] [address] * Screening Mammogram Bilateral W Grey (01/09/2024) Anatomical Region Laterality Modality Breast Bilateral Mammography 01/09/2024 Chely Vargas NP IMG MAMMO PROCEDURES Edited R esult - Final * (ABNORMAL) Dexa Axial Skeleton Bone Density 1 or 2 Site (01/09/2024) Anatomical Region Laterality Modality Body N/A Radiographic Debra ging 01/09/2024 Chely Vargas RADAR MECHANIC IMG DXA PROCEDURES Final Resu lt * Stool DNA - Cologuard (12/08/2022 3:30 PM CDT) Stool Historical Provider LAB BODY FLUIDS AND STOOL S ORDERABLES Final Result from Last 3 Months or Most Recently Relevant to Health Maintenance Insurance MEDICARE [employer] MEDIC[place] [address] MEDICARE A[employer] SENIOR SUPPLEMENT Care Teams Cobbler Apprentice Relationship Specialty Start Date End Date Chely Vargas NP PCP - General Internal Medicine 06/23/22
--- OUTSIDE RECORDS SUMMARY | 2024-10-25 13:05 | XMS_ITS | Patient Health Record ---
Author Organization [facility] [employer] [facility] Address [address] [place] [address] Care Team Providers Care Plow Holder Name Role Phone Chely Barth Primary Care Provider Thien Antoine Unavailable [phone] Migration, Provider Unavailable Unavailable Caty Solomon Unavailable [phone] Allergies Allergen (clinical drug ingredient) Drug/Non Drug Allergy documented on EMR Reaction Allergy Type Onset Date Status bupropion buPROPion HCl ER (XL) Unknown Drug Allergy Active codeine Codeine Unknown Drug Allergy 08/16/2022 Active Results Component Value Reference Range Notes UDT Reviewed date:02/01/2024 02:21:41 PM Interpretation: Performing Lab: Notes/Report: THC neg 0 - 50 ng/ml Cocaine neg Amphetamine neg Buprenorphine (BUP) neg Secobarbital (Bar) neg Oxazepam (BZO) neg 7-njpgjmusbw-5,9-jhejlgbt-4,3-diphenylpyrrolidine (JUAN P) neg Methamphetamine (MET) neg Methylenedioxymethamphetamine (MDMA) neg Morphine (MOP 300/GYT2280) neg Methadone (MTD) neg Phencyclidine (PCP) neg Nortriptyline (TCA) neg x neg Reason For Referral No Information Medications Medication SIG (Take, Route, Frequency, Duration) Notes Start Date End Date Status DULoxetine HCl 30 MG 1 capsule Orally Once a day for 90 days rx send on 10/03/24 Active DULoxetine HCl 30 MG TAKE 1 CAPSULE EVERY DAY for 90 Active busPIRone HCl 5 MG 1 tablet Oral Twice a day for 90 days Active Moxifloxacin HCl 0.5 % Ophthalmic for 22 Days Active Nitrofurantoin Monohyd Macro 100 MG Oral for 7 Days Not-Taking busPIRone HCl 7.5 MG Oral for 90 Days Not-Taking Sertraline HCl 25 MG 1 tablet Orally Once a day for 90 days rx send on 10/03/24 10/03/2024 Active Carvedilol 25 MG Oral for 90 Days Active Escitalopram Oxalate 20 MG Oral for 90 Days Not-Taking metFORMIN HCl ER 500 MG Oral for 90 Days Active Escitalopram Oxalate 10 MG Oral for 60 Days Not-Taking Breo Ellipta 100-25 MCG/ACT Inhalation for 90 Days Active Atorvastatin Calcium 40 MG Oral for 90 Days Active Spiriva HandiHaler 18 MCG Inhalation for 90 Days Active Spironolactone 25 MG Oral for 90 Days Active Social History Tobacco Use: Social History Observation Description Date Details (start date - stop date) Never Smoker NA - NA Sex Assigned At : Social History Observation Description Sex Assigned At Female Tobacco Control (Standard) Question Answer Notes Tobacco use: Nonsmoker AUDIT-C (Standard) Question Answer Notes Did you have a drink containing alcohol in the p ast year? No Points 0 Interpretation Negative Problems Problem Type SNOMED Code ICD Code Onset Dates Problem Status W/U Status Risk Notes Problem Severe recurrent major depression without psychotic features (24702494) Major depressive disorder, recurrent severe without psychotic features (F33.2) Active confirmed Problem Generalized anxiety disorder (08436632) Generalized anxiety disorder (F41.1) Active confirmed Problem Generalized anxiety disorder (70162141) ENA (generalized anxiety disorder) (F41.1) Active confirmed Problem Hyperlipidemia (72313913) Hyperlipidemia (E78.5) 11/06/19 18 Active confirmed Problem Type 2 diabetes mellitus with hyperlipidemia (E11.69) 09/27/19 23 Active confirmed Problem Chronic obstructive pulmonary disease (85147469) Chronic obstructive pulmonary disease (J44.9) 11/06/19 18 Active confirmed Problem Essential hypertension (02329871) Essential (primary) hypertension (I10) 11/06/19 18 Active confirmed Vital Signs Heart Rate 92 /min 07/23/2024 Height-cm 167.64 cm 10/03/2024 Blood pressure diastolic 82 mm Hg 10/03/2024 Weight-kg 83.464 kg 10/03/2024 Height 66.00 in 10/03/2024 Blood pressure systolic 141 mm Hg 10/03/2024 Weight 184 lbs 10/03/2024 BMI 29.7 kg/m2 10/03/2024 Encounters Encounter Location Date Provider Diagnosis [facility] [address] [facility] [address] [place] [address] 02/01/2024 Thien Hieu Hyperlipidemia E78.5 ; Chronic obstructive pulmonary disease J44.9 ; Type 2 diabetes mellitus with hyperlipidemia E11.69 ; Major depressive disorder, recurrent severe without psychotic features F33.2 ; ENA (generalized anxiety disorder) F41.1 and Major neurocognitive disorder 294.20 [facility] [address] [facility] [address] [place] [address] 03/03/2024 Thien Hieu Hyperlipidemia E78.5 ; Major depressive disorder, recurrent severe without psychotic features F33.2 ; Chronic obstructive pulmonary disease J44.9 ; Type 2 diabetes mellitus with hyperlipidemia E11.69 and ENA (generalized anxiety disorder) F41.1 [facility] [address] [facility] [address] [place] [address] 03/03/2024 Caty Hinderliter Generalized anxiety disorder F41.1 [facility] [address] [facility] [address] [place] [address] 03/31/2024 Caty Hinderliter Major depressive disorder, recurrent severe without psychotic features F33.2 and Generalized anxiety disorder F41.1 [facility] [address] [facility] [address] [place] [address] 04/28/2024 Thien Hieu Major depressive disorder, recurrent severe without psychotic features F33.2 ; Generalized anxiety disorder F41.1 ; Hyperlipidemia E78.5 ; Chronic obstructive pulmonary disease J44.9 ; Type 2 diabetes mellitus with hyperlipidemia E11.69 and ENA (generalized anxiety disorder) F41.1 [facility] [address] [place] [address] 04/30/2024 Caty Hinderliter Major depressive disorder, recurrent severe without psychotic features F33.2 and Generalized anxiety disorder F41.1 [facility] [address] [place] [address] 06/23/2024 Thien Hieu Major depressive disorder, recurrent severe without psychotic features F33.2 ; Generalized anxiety disorder F41.1 ; Hyperlipidemia E78.5 ; Chronic obstructive pulmonary disease J44.9 ; Type 2 diabetes mellitus with hyperlipidemia E11.69 and ENA (generalized anxiety disorder) F41.1 [place] [id number] [facility] [address] [address] 07/23/2024 Thien Hieu Major depressive disorder, recurrent severe without psychotic features F33.2 ; Generalized anxiety disorder F41.1 ; Hyperlipidemia E78.5 ; Chronic obstructive pulmonary disease J44.9 ; Type 2 diabetes mellitus with hyperlipidemia E11.69 and ENA (generalized anxiety disorder) F41.[address] [address] 10/03/2024 Thien Hagen Major depressive disorder, recurrent severe without psychotic features F33.2 ; Essential (primary) hypertension I10 ; Generalized anxiety disorder F41.1 ; Hyperlipidemia E78.5 ; Chronic obstructive pulmonary disease J44.9 ; Type 2 diabetes mellitus with hyperlipidemia E11.69 ; ENA (generalized anxiety disorder) F41.1 and Benign essential HTN I10 [address] [address] 12/[facility] [address] [address] 12/23/[facility] [address] [address] 02/01/2024 Thien Hagen [address] [address] 10/03/2024 Thien Hagen Assessments Encounter Date Diagnosis (ICD Code) Assessment Notes Treatment Notes Treatment Clinical Notes Section Notes 02/01/2024 Hyperlipidemia (ICD-10 - E78.5) 02/01/2024 Chronic obstructive pulmonary disease (ICD-10 - J44.9) 03/03/2024 Major depressive disorder, recurrent severe without psychotic features (ICD-10 - F33.2) Anxiety - Assessment: - Patient reports increased anxiety following recent eye surgery at a large facility, exacerbating pre-existing anxiety issues. - Patient mentions having to take Xanax in the morning due to waking up in a panic. - Currently taking BuSpar 7.5 mg and Duloxetine. - Patient prefers to maintain current medication dosages without increases. - Plan: - Continue BuSpar 7.5 mg and Duloxetine. - Send a 90-day prescription for both medications to [facility]. - Send a two-week prescription for Duloxetine to [facility] to cover the gap until the [employer] prescription arrives. - Encourage the patient to discuss their anxiety with their therapist during their upcoming appointment scheduled immediately after this visit. Post-surgical Recovery - Assessment: Patient underwent eye surgery to correct an eyelid issue that caused an ulcer and infection, with no reported side effects or complications. Patient reports the surgeon was wonderful and the procedure went well. - Plan: Monitor the patient's recovery and address any concerns during follow-up appointments. Back and Hip Pain - Assessment: Patient reports having difficulty engaging in activities to cope with anxiety due to back and hip pain, which limits their ability to perform activities and often requires them to sit down. - Plan: Encourage the patient to discuss their pain with their primary care physician or a specialist to explore potential treatment options. Follow-up - Plan: Schedule a follow-up appointment in two months to assess the patient's anxiety, medication management, and overall well-being. 03/03/2024 Generalized anxiety disorder (ICD-10 - F41.1) Unable to complete full assessment due to client's level of anxiety. How long is this going to take? Because I'm getting ready to jump out of my skin. I don't think I can do an hour. Preferred name: Lanie Pronouns: she/her Sexual Orientation: unable to assess Marital Status: Living Arrangement: lives with adult grandchild and great grandchild Children: son is Support System: Unable to assess Highest Level of Education: Unable to assess Employment Status: retired Financial Concerns: Unable to assess History: Unable to assess Legal History: Unable to assess Family History of MH/CARLITOS: alcohol, depression, anxiety, suicide Physical Medical Conditions: back and hip issues. Recent eye surgery Spiritual Beliefs: Unable to assess Suicidal Ideation/Self Harm: None reproted Homicidal Ideation: None reported Access to Means (firearms, stockpiled medication, etc.): None reported Chief Complaint: Intense and debilitating anxiety. Anxiety: racing thoughts, difficulty controlling worry, panic feeling in stomach, nausea, shortness of breath, history of panic attacks. Feels constantly on edge. like I could jump out of my skin. Some times she is able to identify stressor and other times anxiety does not have an apparent cause. Unable to complete the GAD7 Depression: Crying throughout session. Unable to complete the PHQ9 Anger/Aggressio n: Unable to assess Obsessions/Comp ulsions: Unable to assess Belen: Unable to assess Psychosis: None reported Sleep: Can sleep when taking Tylenol PM. Will sleep 6-7 hours on average. Can take an hour nap to reboot . Appetite: Nauseous when anxious Trauma: Multiple losses including the of her son, her granddaughter's mother, and her . Also became caregiver for granddaughter when she was 15 and for granddaughter's baby. Hypervigiliant. Hyperarousal Substance Use (type, last use, amount, frequency, withdrawal symptoms): None reported Gambling/Other Addictive Behaviors: Unable to assess ADLs (Hygiene, Chores, Cooking, Shopping): Unable to grocery shop in person, will have groceries delivered to the home. Noted that she often does not leave the home. Interests/Skill s/Hobbies: Reading Strengths: Unable to assess Limitations: debilitating anxiety Goal(s) for Therapy: coping skills for the overwhelming anxiety. 03/31/2024 Major depressive disorder, recurrent severe without psychotic features (ICD-10 - F33.2) Assessment and Plan Anxiety and Panic Attacks - Assessment: The patient reports a decrease in wake-up panic attacks, attributing improvement to the use of relaxation techniques and lavender spray. However, anxiety persists, particularly exacerbated by significant dates such as the anniversary of her son's and ongoing family stressors. - Plan: Continue using relaxation techniques and lavender spray. Encourage the patient to remind herself that past events are not currently happening to reinforce feelings of safety. Scheduled follow-up in one month or as needed if the patient feels an earlier visit is necessary. The patient is also encouraged to utilize the walk-in clinic if experiencing acute distress. Family Dynamics and Stress - Assessment: The patient describes significant stress related to family dynamics, including the care of her great granddaughter and the emotional and behavioral challenges of her granddaughter, Helen. The patient feels unsupported and overwhelmed by these relationships and the associated responsibilitie s. - Plan: Encourage the patient to maintain boundaries and communication with Helen, focusing on being supportive without overstepping. Suggest continuing to use grounding techniques to manage stress and emotional overload. No specific therapeutic changes recommended at this time. Personal Coping Strategies - Assessment: The patient utilizes various personal coping strategies to manage her emotional state, including reading, watching television, and engaging in sensory-based grounding techniques. - Plan: Support the continuation of these activities as they provide significant relief and distraction from stressors. Discuss the potential for integrating more structured relaxation and mindfulness exercises to enhance coping capacity. Physical Health Concerns - Assessment: The patient reports chronic pain due to a fractured pelvis and general physical decline with age, which significantly impacts her daily functioning and mental health. - Plan: Encourage the patient to continue with manageable physical activities and consider consulting a physical therapist for pain management strategies. Recommend maintaining a balanced diet to support overall health and energy levels. Cognitive Behavioral Techniques - Assessment: The patient is familiar with and practices cognitive behavioral techniques to manage anxiety and stress. - Plan: Continue reinforcing the use of these techniques, particularly focusing on challenging negative thoughts and utilizing logical thinking to manage emotional responses. Introduce additional mental exercises such as counting or categorization games to help divert attention from distressing thoughts. Overall, the patient is encouraged to continue utilizing her current strategies while integrating suggested adjustments to enhance her ability to manage anxiety, stress, and physical health concerns. Regular follow-up appointments will be used to monitor progress and make further adjustments to the treatment plan as necessary. 03/31/2024 Generalized anxiety disorder (ICD-10 - F41.1) Assessment and Plan Anxiety and Panic Attacks - Assessment: The patient reports a decrease in wake-up panic attacks, attributing improvement to the use of relaxation techniques and lavender spray. However, anxiety persists, particularly exacerbated by significant dates such as the anniversary of her son's and ongoing family stressors. - Plan: Continue using relaxation techniques and lavender spray. Encourage the patient to remind herself that past events are not currently happening to reinforce feelings of safety. Scheduled follow-up in one month or as needed if the patient feels an earlier visit is necessary. The patient is also encouraged to utilize the walk-in clinic if experiencing acute distress. Family Dynamics and Stress - Assessment: The patient describes significant stress related to family dynamics, including the care of her great granddaughter and the emotional and behavioral challenges of her granddaughter, Helen. The patient feels unsupported and overwhelmed by these relationships and the associated responsibilitie s. - Plan: Encourage the patient to maintain boundaries and communication with Helen, focusing on being supportive without overstepping. Suggest continuing to use grounding techniques to manage stress and emotional overload. No specific therapeutic changes recommended at this time. Personal Coping Strategies - Assessment: The patient utilizes various personal coping strategies to manage her emotional state, including reading, watching television, and engaging in sensory-based grounding techniques. - Plan: Support the continuation of these activities as they provide significant relief and distraction from stressors. Discuss the potential for integrating more structured relaxation and mindfulness exercises to enhance coping capacity. Physical Health Concerns - Assessment: The patient reports chronic pain due to a fractured pelvis and general physical decline with age, which significantly impacts her daily functioning and mental health. - Plan: Encourage the patient to continue with manageable physical activities and consider consulting a physical therapist for pain management strategies. Recommend maintaining a balanced diet to support overall health and energy levels. Cognitive Behavioral Techniques - Assessment: The patient is familiar with and practices cognitive behavioral techniques to manage anxiety and stress. - Plan: Continue reinforcing the use of these techniques, particularly focusing on challenging negative thoughts and utilizing logical thinking to manage emotional responses. Introduce additional mental exercises such as counting or categorization games to help divert attention from distressing thoughts. Overall, the patient is encouraged to continue utilizing her current strategies while integrating suggested adjustments to enhance her ability to manage anxiety, stress, and physical health concerns. Regular follow-up appointments will be used to monitor progress and make further adjustments to the treatment plan as necessary. 04/28/2024 Major depressive disorder, recurrent severe without psychotic features (ICD-10 - F33.2) Depression - Assessment: Patient reports overall stability in depression symptoms. PHQ-9 score: 8 - Plan: - Continue duloxetine 30 mg daily. - Monitor for any changes in symptoms and adjust medication as needed. - Schedule follow-up in 4 weeks or 2 months as per patient preference. Anxiety - Assessment: Patient reports a decrease in anxiety symptoms. Anxiety scale: 5 - Plan: - Decrease buspirone to 7.5 mg twice a day (1.5 tablets). - Monitor for any changes in symptoms and adjust medication as needed. - Schedule follow-up in 4 weeks or 2 months as per patient preference. Memory Concerns - Assessment: Patient reports occasional memory lapses, but believes they are age-appropriate and not related to any cognitive decline. Mini Mental Status Exam (MMSE) score: 30/30. Patient declined additional memory testing, stating I think the things that I forget are normal within my age. - Plan: No further intervention needed at this time. Continue to monitor memory concerns during follow-up visits and consider further evaluation if memory issues worsen or become more frequent. Family Issues with Daughter - Assessment: Patient reports ongoing communication difficulties with her 23-year-old daughter, who has a history of BPD and is currently awaiting therapy. Daughter claims patient forgets conversations, particularly regarding financial responsibilitie s. Daughter has secured an appointment with a BPD-experienced therapist through Medicaid ([facility]), but there is a 4-5 month wait. - Plan: Encourage patient to maintain open communication with her daughter and seek support from a therapist or support group if needed. Monitor the impact of family issues on the patient's mental health during follow-up visits. Follow-up - Plan: Schedule a follow-up appointment in 4 weeks or 2 months as per patient preference to assess the effectiveness of the current treatment plan and make any necessary adjustments. 04/28/2024 Generalized anxiety disorder (ICD-10 - F41.1) Depression - Assessment: Patient reports overall stability in depression symptoms. PHQ-9 score: 8 - Plan: - Continue duloxetine 30 mg daily. - Monitor for any changes in symptoms and adjust medication as needed. - Schedule follow-up in 4 weeks or 2 months as per patient preference. Anxiety - Assessment: Patient reports a decrease in anxiety symptoms. Anxiety scale: 5 - Plan: - Decrease buspirone to 7.5 mg twice a day (1.5 tablets). - Monitor for any changes in symptoms and adjust medication as needed. - Schedule follow-up in 4 weeks or 2 months as per patient preference. Memory Concerns - Assessment: Patient reports occasional memory lapses, but believes they are age-appropriate and not related to any cognitive decline. Mini Mental Status Exam (MMSE) score: 30/30. Patient declined additional memory testing, stating I think the things that I forget are normal within my age. - Plan: No further intervention needed at this time. Continue to monitor memory concerns during follow-up visits and consider further evaluation if memory issues worsen or become more frequent. Family Issues with Daughter - Assessment: Patient reports ongoing communication difficulties with her 23-year-old daughter, who has a history of BPD and is currently awaiting therapy. Daughter claims patient forgets conversations, particularly regarding financial responsibilitie s. Daughter has secured an appointment with a BPD-experienced therapist through Medicaid ([facility]), but there is a 4-5 month wait. - Plan: Encourage patient to maintain open communication with her daughter and seek support from a therapist or support group if needed. Monitor the impact of family issues on the patient's mental health during follow-up visits. Follow-up - Plan: Schedule a follow-up appointment in 4 weeks or 2 months as per patient preference to assess the effectiveness of the current treatment plan and make any necessary adjustments. 03/03/2024 Hyperlipidemia (ICD-10 - E78.5) Anxiety - Assessment: - Patient reports increased anxiety following recent eye surgery at a large facility, exacerbating pre-existing anxiety issues. - Patient mentions having to take Xanax in the morning due to waking up in a panic. - Currently taking BuSpar 7.5 mg and Duloxetine. - Patient prefers to maintain current medication dosages without increases. - Plan: - Continue BuSpar 7.5 mg and Duloxetine. - Send a 90-day prescription for both medications to [facility]. - Send a two-week prescription for Duloxetine to [facility] to cover the gap until the [employer] prescription arrives. - Encourage the patient to discuss their anxiety with their therapist during their upcoming appointment scheduled immediately after this visit. Post-surgical Recovery - Assessment: Patient underwent eye surgery to correct an eyelid issue that caused an ulcer and infection, with no reported side effects or complications. Patient reports the surgeon was wonderful and the procedure went well. - Plan: Monitor the patient's recovery and address any concerns during follow-up appointments. Back and Hip Pain - Assessment: Patient reports having difficulty engaging in activities to cope with anxiety due to back and hip pain, which limits their ability to perform activities and often requires them to sit down. - Plan: Encourage the patient to discuss their pain with their primary care physician or a specialist to explore potential treatment options. Follow-up - Plan: Schedule a follow-up appointment in two months to assess the patient's anxiety, medication management, and overall well-being. 04/30/2024 Major depressive disorder, recurrent severe without psychotic features (ICD-10 - F33.2) 1. Anxiety and Fear Management - The patient has noted improvement in managing anxiety and fear through the use of grounding techniques. - Continue the application of grounding techniques and consider additional coping strategies as necessary. - A follow-up appointment is scheduled in one month to evaluate progress and address any emerging concerns. 2. Cognitive Concerns Related to Aging - Following a discussion about memory concerns, Dr. Hagen performed a test and identified age-related cognitive changes in the patient. - Encourage the patient to partake in activities that support cognitive health, including mental exercises, engaging in social activities, and physical exercise. - Cognitive function will be monitored in subsequent appointments, with any issues being promptly addressed. 3. Support for Granddaughter with Borderline Personality Disorder (BPD) - The patient's granddaughter, Helen, is navigating challenges associated with BPD, including issues with medication adherence, therapy engagement, and daily activities. - Advise the patient to keep open lines of communication with Helen and to establish healthy boundaries. - Recommend that the patient seeks out resources and support groups for relatives of individuals with BPD to enhance understanding and management of these challenges. 4. Family Dynamics and Communication - The patient has expressed difficulties in communicating with Helen and concerns regarding the effects on Helen Tan's daughter. - Suggest the adoption of fair fighting rules for managing difficult conversations and the establishment of clear communication expectations within the family. - Stress the importance of self-care for the patient and the utility of seeking support from friends, family, or support groups. 5. Financial Concerns and Budgeting - The patient has raised issues regarding Helen's financial reporting director and its impact on their shared living situation. - Propose that the patient collaborates with Helen to create a budget and a payment plan for shared expenses, such as car insurance. - Highlight the significance of discussing financial responsibility and budgeting with Helen to ensure long-term stability. - A follow-up appointment is set for one month to address any arising concerns. 04/30/2024 Generalized anxiety disorder (ICD-10 - F41.1) 1. Anxiety and Fear Management - The patient has noted improvement in managing anxiety and fear through the use of grounding techniques. - Continue the application of grounding techniques and consider additional coping strategies as necessary. - A follow-up appointment is scheduled in one month to evaluate progress and address any emerging concerns. 2. Cognitive Concerns Related to Aging - Following a discussion about memory concerns, Dr. Hagen performed a test and identified age-related cognitive changes in the patient. - Encourage the patient to partake in activities that support cognitive health, including mental exercises, engaging in social activities, and physical exercise. - Cognitive function will be monitored in subsequent appointments, with any issues being promptly addressed. 3. Support for Granddaughter with Borderline Personality Disorder (BPD) - The patient's granddaughter, Helen, is navigating challenges associated with BPD, including issues with medication adherence, therapy engagement, and daily activities. - Advise the patient to keep open lines of communication with Helen and to establish healthy boundaries. - Recommend that the patient seeks out resources and support groups for relatives of individuals with BPD to enhance understanding and management of these challenges. 4. Family Dynamics and Communication - The patient has expressed difficulties in communicating with Helen and concerns regarding the effects on Helen Tan's daughter. - Suggest the adoption of fair fighting rules for managing difficult conversations and the establishment of clear communication expectations within the family. - Stress the importance of self-care for the patient and the utility of seeking support from friends, family, or support groups. 5. Financial Concerns and Budgeting - The patient has raised issues regarding Helen's financial reporting director and its impact on their shared living situation. - Propose that the patient collaborates with Helen to create a budget and a payment plan for shared expenses, such as car insurance. - Highlight the significance of discussing financial responsibility and budgeting with Helen to ensure long-term stability. - A follow-up appointment is set for one month to address any arising concerns. 06/23/2024 Major depressive disorder, recurrent severe without psychotic features (ICD-10 - F33.2) Anxiety and Depressive Symptoms - Assessment: Patient reports increased anxiety and depressive symptoms over the past 2-3 weeks, with no clear trigger identified. Currently on duloxetine, buspirone, and Xanax as needed. No recent changes in medication. Patient mentions feeling off and experiencing increased anxiety, possibly related to the time change. Patient reports feeling exhausted from daily functioning and worrying about little things. - Plan: - Continue current medications (duloxetine, buspirone, and Xanax as needed). - Encourage patient to consider light therapy for potential seasonal affective disorder. - Schedule follow-up appointment in one month to reassess symptoms. - Instruct patient to contact the clinic if mood worsens before the scheduled follow-up. Sleep Issues - Assessment: Patient reports no sleep issues but expresses a preference for sleep. - Plan: - Monitor sleep patterns and address any concerns during the follow-up appointment. Medication Management - Assessment: Patient is currently taking metformin, Coreg, atorvastatin, and spironolactone for other medical conditions. Patient expressed reluctance to add any new medications. - Plan: - Continue current medications and monitor for any potential interactions or side effects. - Refill duloxetine and buspirone as needed. Social Support and Daily Functioning - Assessment: Patient has motivation to function due to caring for her 8-year-old granddaughter, Britney, 4 days a week. Patient reports struggling with motivation but manages to function for her granddaughter's sake. - Plan: - Encourage patient to maintain social support and daily functioning. - Reassess during the follow-up appointment. Light Therapy - Assessment: Discussed the potential benefits of light therapy for seasonal affective disorder with the patient. Provided information on light therapy options, including the use of a 10,000 lux lamp for 30 minutes in the morning. - Plan: - Provide patient with information on light therapy options and encourage her to consider trying it. - Revisit the topic during the follow-up appointment. Follow-up - Plan: - Scheduled follow-up appointment in one month to reassess symptoms and treatment progress. - Advised patient to contact the clinic if mood worsens before the scheduled follow-up. 07/23/2024 Major depressive disorder, recurrent severe without [...] during the next visit in 2 months. 10/03/2024 Major depressive disorder, recurrent severe without psychotic features (ICD-10 - F33.2) 10/03/2024 Essential (primary) hypertension (ICD-10 - I10) 10/03/2024 Generalized anxiety disorder (ICD-10 - F41.1) 07/23/2024 Generalized anxiety disorder (ICD-10 - F41.1) [...] during the next visit in 2 months. 03/03/2024 Chronic obstructive pulmonary disease (ICD-10 - J44.9) Anxiety - Assessment: - Patient reports increased anxiety following recent eye surgery at a large facility, exacerbating pre-existing anxiety issues. - Patient mentions having to take Xanax in the morning due to waking up in a panic. - Currently taking BuSpar 7.5 mg and Duloxetine. - Patient prefers to maintain current medication dosages without increases. - Plan: - Continue BuSpar 7.5 mg and Duloxetine. - Send a 90-day prescription for both medications to [facility]. - Send a two-week prescription for Duloxetine to [facility] to cover the gap until the [employer] prescription arrives. - Encourage the patient to discuss their anxiety with their therapist during their upcoming appointment scheduled immediately after this visit. Post-surgical Recovery - Assessment: Patient underwent eye surgery to correct an eyelid issue that caused an ulcer and infection, with no reported side effects or complications. Patient reports the surgeon was wonderful and the procedure went well. - Plan: Monitor the patient's recovery and address any concerns during follow-up appointments. Back and Hip Pain - Assessment: Patient reports having difficulty engaging in activities to cope with anxiety due to back and hip pain, which limits their ability to perform activities and often requires them to sit down. - Plan: Encourage the patient to discuss their pain with their primary care physician or a specialist to explore potential treatment options. Follow-up - Plan: Schedule a follow-up appointment in two months to assess the patient's anxiety, medication management, and overall well-being. 06/23/2024 Generalized anxiety disorder (ICD-10 - F41.1) Anxiety and Depressive Symptoms - Assessment: Patient reports increased anxiety and depressive symptoms over the past 2-3 weeks, with no clear trigger identified. Currently on duloxetine, buspirone, and Xanax as needed. No recent changes in medication. Patient mentions feeling off and experiencing increased anxiety, possibly related to the time change. Patient reports feeling exhausted from daily functioning and worrying about little things. - Plan: - Continue current medications (duloxetine, buspirone, and Xanax as needed). - Encourage patient to consider light therapy for potential seasonal affective disorder. - Schedule follow-up appointment in one month to reassess symptoms. - Instruct patient to contact the clinic if mood worsens before the scheduled follow-up. Sleep Issues - Assessment: Patient reports no sleep issues but expresses a preference for sleep. - Plan: - Monitor sleep patterns and address any concerns during the follow-up appointment. Medication Management - Assessment: Patient is currently taking metformin, Coreg, atorvastatin, and spironolactone for other medical conditions. Patient expressed reluctance to add any new medications. - Plan: - Continue current medications and monitor for any potential interactions or side effects. - Refill duloxetine and buspirone as needed. Social Support and Daily Functioning - Assessment: Patient has motivation to function due to caring for her 8-year-old granddaughter, Britney, 4 days a week. Patient reports struggling with motivation but manages to function for her granddaughter's sake. - Plan: - Encourage patient to maintain social support and daily functioning. - Reassess during the follow-up appointment. Light Therapy - Assessment: Discussed the potential benefits of light therapy for seasonal affective disorder with the patient. Provided information on light therapy options, including the use of a 10,000 lux lamp for 30 minutes in the morning. - Plan: - Provide patient with information on light therapy options and encourage her to consider trying it. - Revisit the topic during the follow-up appointment. Follow-up - Plan: - Scheduled follow-up appointment in one month to reassess symptoms and treatment progress. - Advised patient to contact the clinic if mood worsens before the scheduled follow-up. 04/28/2024 Hyperlipidemia (ICD-10 - E78.5) Depression - Assessment: Patient reports overall stability in depression symptoms. PHQ-9 score: 8 - Plan: - Continue duloxetine 30 mg daily. - Monitor for any changes in symptoms and adjust medication as needed. - Schedule follow-up in 4 weeks or 2 months as per patient preference. Anxiety - Assessment: Patient reports a decrease in anxiety symptoms. Anxiety scale: 5 - Plan: - Decrease buspirone to 7.5 mg twice a day (1.5 tablets). - Monitor for any changes in symptoms and adjust medication as needed. - Schedule follow-up in 4 weeks or 2 months as per patient preference. Memory Concerns - Assessment: Patient reports occasional memory lapses, but believes they are age-appropriate and not related to any cognitive decline. Mini Mental Status Exam (MMSE) score: 30/30. Patient declined additional memory testing, stating I think the things that I forget are normal within my age. - Plan: No further intervention needed at this time. Continue to monitor memory concerns during follow-up visits and consider further evaluation if memory issues worsen or become more frequent. Family Issues with Daughter - Assessment: Patient reports ongoing communication difficulties with her 23-year-old daughter, who has a history of BPD and is currently awaiting therapy. Daughter claims patient forgets conversations, particularly regarding financial responsibilitie s. Daughter has secured an appointment with a BPD-experienced therapist through Medicaid ([facility]), but there is a 4-5 month wait. - Plan: Encourage patient to maintain open communication with her daughter and seek support from a therapist or support group if needed. Monitor the impact of family issues on the patient's mental health during follow-up visits. Follow-up - Plan: Schedule a follow-up appointment in 4 weeks or 2 months as per patient preference to assess the effectiveness of the current treatment plan and make any necessary adjustments. 02/01/2024 Type 2 diabetes mellitus with hyperlipidemia (ICD-10 - E11.69) 02/01/2024 Major depressive disorder, recurrent severe without psychotic features (ICD-10 - F33.2) 03/03/2024 Type 2 diabetes mellitus with hyperlipidemia (ICD-10 - E11.69) Anxiety - Assessment: - Patient reports increased anxiety following recent eye surgery at a large facility, exacerbating pre-existing anxiety issues. - Patient mentions having to take Xanax in the morning due to waking up in a panic. - Currently taking BuSpar 7.5 mg and Duloxetine. - Patient prefers to maintain current medication dosages without increases. - Plan: - Continue BuSpar 7.5 mg and Duloxetine. - Send a 90-day prescription for both medications to [facility]. - Send a two-week prescription for Duloxetine to [facility] to cover the gap until the [employer] prescription arrives. - Encourage the patient to discuss their anxiety with their therapist during their upcoming appointment scheduled immediately after this visit. Post-surgical Recovery - Assessment: Patient underwent eye surgery to correct an eyelid issue that caused an ulcer and infection, with no reported side effects or complications. Patient reports the surgeon was wonderful and the procedure went well. - Plan: Monitor the patient's recovery and address any concerns during follow-up appointments. Back and Hip Pain - Assessment: Patient reports having difficulty engaging in activities to cope with anxiety due to back and hip pain, which limits their ability to perform activities and often requires them to sit down. - Plan: Encourage the patient to discuss their pain with their primary care physician or a specialist to explore potential treatment options. Follow-up - Plan: Schedule a follow-up appointment in two months to assess the patient's anxiety, medication management, and overall well-being. 04/28/2024 Chronic obstructive pulmonary disease (ICD-10 - J44.9) Depression - Assessment: Patient reports overall stability in depression symptoms. PHQ-9 score: 8 - Plan: - Continue duloxetine 30 mg daily. - Monitor for any changes in symptoms and adjust medication as needed. - Schedule follow-up in 4 weeks or 2 months as per patient preference. Anxiety - Assessment: Patient reports a decrease in anxiety symptoms. Anxiety scale: 5 - Plan: - Decrease buspirone to 7.5 mg twice a day (1.5 tablets). - Monitor for any changes in symptoms and adjust medication as needed. - Schedule follow-up in 4 weeks or 2 months as per patient preference. Memory Concerns - Assessment: Patient reports occasional memory lapses, but believes they are age-appropriate and not related to any cognitive decline. Mini Mental Status Exam (MMSE) score: 30/30. Patient declined additional memory testing, stating I think the things that I forget are normal within my age. - Plan: No further intervention needed at this time. Continue to monitor memory concerns during follow-up visits and consider further evaluation if memory issues worsen or become more frequent. Family Issues with Daughter - Assessment: Patient reports ongoing communication difficulties with her 23-year-old daughter, who has a history of BPD and is currently awaiting therapy. Daughter claims patient forgets conversations, particularly regarding financial responsibilitie s. Daughter has secured an appointment with a BPD-experienced therapist through Medicaid ([facility]), but there is a 4-5 month wait. - Plan: Encourage patient to maintain open communication with her daughter and seek support from a therapist or support group if needed. Monitor the impact of family issues on the patient's mental health during follow-up visits. Follow-up - Plan: Schedule a follow-up appointment in 4 weeks or 2 months as per patient preference to assess the effectiveness of the current treatment plan and make any necessary adjustments. 06/23/2024 Hyperlipidemia (ICD-10 - E78.5) Anxiety and Depressive Symptoms - Assessment: Patient reports increased anxiety and depressive symptoms over the past 2-3 weeks, with no clear trigger identified. Currently on duloxetine, buspirone, and Xanax as needed. No recent changes in medication. Patient mentions feeling off and experiencing increased anxiety, possibly related to the time change. Patient reports feeling exhausted from daily functioning and worrying about little things. - Plan: - Continue current medications (duloxetine, buspirone, and Xanax as needed). - Encourage patient to consider light therapy for potential seasonal affective disorder. - Schedule follow-up appointment in one month to reassess symptoms. - Instruct patient to contact the clinic if mood worsens before the scheduled follow-up. Sleep Issues - Assessment: Patient reports no sleep issues but expresses a preference for sleep. - Plan: - Monitor sleep patterns and address any concerns during the follow-up appointment. Medication Management - Assessment: Patient is currently taking metformin, Coreg, atorvastatin, and spironolactone for other medical conditions. Patient expressed reluctance to add any new medications. - Plan: - Continue current medications and monitor for any potential interactions or side effects. - Refill duloxetine and buspirone as needed. Social Support and Daily Functioning - Assessment: Patient has motivation to function due to caring for her 8-year-old granddaughter, Briteny, 4 days a week. Patient reports struggling with motivation but manages to function for her granddaughter's sake. - Plan: - Encourage patient to maintain social support and daily functioning. - Reassess during the follow-up appointment. Light Therapy - Assessment: Discussed the potential benefits of light therapy for seasonal affective disorder with the patient. Provided information on light therapy options, including the use of a 10,000 lux lamp for 30 minutes in the morning. - Plan: - Provide patient with information on light therapy options and encourage her to consider trying it. - Revisit the topic during the follow-up appointment. Follow-up - Plan: - Scheduled follow-up appointment in one month to reassess symptoms and treatment progress. - Advised patient to contact the clinic if mood worsens before the scheduled follow-up. 07/23/2024 Hyperlipidemia (ICD-10 - E78.5) Anxiety and [...] during the next visit in 2 months. 10/03/2024 Hyperlipidemia (ICD-10 - E78.5) 06/23/2024 Chronic obstructive pulmonary disease (ICD-10 - J44.9) Anxiety and Depressive Symptoms - Assessment: Patient reports increased anxiety and depressive symptoms over the past 2-3 weeks, with no clear trigger identified. Currently on duloxetine, buspirone, and Xanax as needed. No recent changes in medication. Patient mentions feeling off and experiencing increased anxiety, possibly related to the time change. Patient reports feeling exhausted from daily functioning and worrying about little things. - Plan: - Continue current medications (duloxetine, buspirone, and Xanax as needed). - Encourage patient to consider light therapy for potential seasonal affective disorder. - Schedule follow-up appointment in one month to reassess symptoms. - Instruct patient to contact the clinic if mood worsens before the scheduled follow-up. Sleep Issues - Assessment: Patient reports no sleep issues but expresses a preference for sleep. - Plan: - Monitor sleep patterns and address any concerns during the follow-up appointment. Medication Management - Assessment: Patient is currently taking metformin, Coreg, atorvastatin, and spironolactone for other medical conditions. Patient expressed reluctance to add any new medications. - Plan: - Continue current medications and monitor for any potential interactions or side effects. - Refill duloxetine and buspirone as needed. Social Support and Daily Functioning - Assessment: Patient has motivation to function due to caring for her 8-year-old granddaughter, Britney, 4 days a week. Patient reports struggling with motivation but manages to function for her granddaughter's sake. - Plan: - Encourage patient to maintain social support and daily functioning. - Reassess during the follow-up appointment. Light Therapy - Assessment: Discussed the potential benefits of light therapy for seasonal affective disorder with the patient. Provided information on light therapy options, including the use of a 10,000 lux lamp for 30 minutes in the morning. - Plan: - Provide patient with information on light therapy options and encourage her to consider trying it. - Revisit the topic during the follow-up appointment. Follow-up - Plan: - Scheduled follow-up appointment in one month to reassess symptoms and treatment progress. - Advised patient to contact the clinic if mood worsens before the scheduled follow-up. 07/23/2024 Chronic obstructive pulmonary disease (ICD-10 - [...] during the next visit in 2 months. 10/03/2024 Chronic obstructive pulmonary disease (ICD-10 - J44.9) 04/28/2024 Type 2 diabetes mellitus with hyperlipidemia (ICD-10 - E11.69) Depression - Assessment: Patient reports overall stability in depression symptoms. PHQ-9 score: 8 - Plan: - Continue duloxetine 30 mg daily. - Monitor for any changes in symptoms and adjust medication as needed. - Schedule follow-up in 4 weeks or 2 months as per patient preference. Anxiety - Assessment: Patient reports a decrease in anxiety symptoms. Anxiety scale: 5 - Plan: - Decrease buspirone to 7.5 mg twice a day (1.5 tablets). - Monitor for any changes in symptoms and adjust medication as needed. - Schedule follow-up in 4 weeks or 2 months as per patient preference. Memory Concerns - Assessment: Patient reports occasional memory lapses, but believes they are age-appropriate and not related to any cognitive decline. Mini Mental Status Exam (MMSE) score: 30/30. Patient declined additional memory testing, stating I think the things that I forget are normal within my age. - Plan: No further intervention needed at this time. Continue to monitor memory concerns during follow-up visits and consider further evaluation if memory issues worsen or become more frequent. Family Issues with Daughter - Assessment: Patient reports ongoing communication difficulties with her 23-year-old daughter, who has a history of BPD and is currently awaiting therapy. Daughter claims patient forgets conversations, particularly regarding financial responsibilitie s. Daughter has secured an appointment with a BPD-experienced therapist through Medicaid ([facility]), but there is a 4-5 month wait. - Plan: Encourage patient to maintain open communication with her daughter and seek support from a therapist or support group if needed. Monitor the impact of family issues on the patient's mental health during follow-up visits. Follow-up - Plan: Schedule a follow-up appointment in 4 weeks or 2 months as per patient preference to assess the effectiveness of the current treatment plan and make any necessary adjustments. 02/01/2024 ENA (generalized anxiety disorder) (ICD-10 - F41.1) 03/03/2024 ENA (generalized anxiety disorder) (ICD-10 - F41.1) Anxiety - Assessment: - Patient reports increased anxiety following recent eye surgery at a large facility, exacerbating pre-existing anxiety issues. - Patient mentions having to take Xanax in the morning due to waking up in a panic. - Currently taking BuSpar 7.5 mg and Duloxetine. - Patient prefers to maintain current medication dosages without increases. - Plan: - Continue BuSpar 7.5 mg and Duloxetine. - Send a 90-day prescription for both medications to [facility]. - Send a two-week prescription for Duloxetine to [facility] to cover the gap until the [employer] prescription arrives. - Encourage the patient to discuss their anxiety with their therapist during their upcoming appointment scheduled immediately after this visit. Post-surgical Recovery - Assessment: Patient underwent eye surgery to correct an eyelid issue that caused an ulcer and infection, with no reported side effects or complications. Patient reports the surgeon was wonderful and the procedure went well. - Plan: Monitor the patient's recovery and address any concerns during follow-up appointments. Back and Hip Pain - Assessment: Patient reports having difficulty engaging in activities to cope with anxiety due to back and hip pain, which limits their ability to perform activities and often requires them to sit down. - Plan: Encourage the patient to discuss their pain with their primary care physician or a specialist to explore potential treatment options. Follow-up - Plan: Schedule a follow-up appointment in two months to assess the patient's anxiety, medication management, and overall well-being. 04/28/2024 ENA (generalized anxiety disorder) (ICD-10 - F41.1) Depression - Assessment: Patient reports overall stability in depression symptoms. PHQ-9 score: 8 - Plan: - Continue duloxetine 30 mg daily. - Monitor for any changes in symptoms and adjust medication as needed. - Schedule follow-up in 4 weeks or 2 months as per patient preference. Anxiety - Assessment: Patient reports a decrease in anxiety symptoms. Anxiety scale: 5 - Plan: - Decrease buspirone to 7.5 mg twice a day (1.5 tablets). - Monitor for any changes in symptoms and adjust medication as needed. - Schedule follow-up in 4 weeks or 2 months as per patient preference. Memory Concerns - Assessment: Patient reports occasional memory lapses, but believes they are age-appropriate and not related to any cognitive decline. Mini Mental Status Exam (MMSE) score: 30/30. Patient declined additional memory testing, stating I think the things that I forget are normal within my age. - Plan: No further intervention needed at this time. Continue to monitor memory concerns during follow-up visits and consider further evaluation if memory issues worsen or become more frequent. Family Issues with Daughter - Assessment: Patient reports ongoing communication difficulties with her 23-year-old daughter, who has a history of BPD and is currently awaiting therapy. Daughter claims patient forgets conversations, particularly regarding financial responsibilitie s. Daughter has secured an appointment with a BPD-experienced therapist through Medicaid ([facility]), but there is a 4-5 month wait. - Plan: Encourage patient to maintain open communication with her daughter and seek support from a therapist or support group if needed. Monitor the impact of family issues on the patient's mental health during follow-up visits. Follow-up - Plan: Schedule a follow-up appointment in 4 weeks or 2 months as per patient preference to assess the effectiveness of the current treatment plan and make any necessary adjustments. 07/23/2024 Type 2 diabetes mellitus with hyperlipidemia [...] during the next visit in 2 months. 06/23/2024 Type 2 diabetes mellitus with hyperlipidemia (ICD-10 - E11.69) Anxiety and Depressive Symptoms - Assessment: Patient reports increased anxiety and depressive symptoms over the past 2-3 weeks, with no clear trigger identified. Currently on duloxetine, buspirone, and Xanax as needed. No recent changes in medication. Patient mentions feeling off and experiencing increased anxiety, possibly related to the time change. Patient reports feeling exhausted from daily functioning and worrying about little things. - Plan: - Continue current medications (duloxetine, buspirone, and Xanax as needed). - Encourage patient to consider light therapy for potential seasonal affective disorder. - Schedule follow-up appointment in one month to reassess symptoms. - Instruct patient to contact the clinic if mood worsens before the scheduled follow-up. Sleep Issues - Assessment: Patient reports no sleep issues but expresses a preference for sleep. - Plan: - Monitor sleep patterns and address any concerns during the follow-up appointment. Medication Management - Assessment: Patient is currently taking metformin, Coreg, atorvastatin, and spironolactone for other medical conditions. Patient expressed reluctance to add any new medications. - Plan: - Continue current medications and monitor for any potential interactions or side effects. - Refill duloxetine and buspirone as needed. Social Support and Daily Functioning - Assessment: Patient has motivation to function due to caring for her 8-year-old granddaughter, Britney, 4 days a week. Patient reports struggling with motivation but manages to function for her granddaughter's sake. - Plan: - Encourage patient to maintain social support and daily functioning. - Reassess during the follow-up appointment. Light Therapy - Assessment: Discussed the potential benefits of light therapy for seasonal affective disorder with the patient. Provided information on light therapy options, including the use of a 10,000 lux lamp for 30 minutes in the morning. - Plan: - Provide patient with information on light therapy options and encourage her to consider trying it. - Revisit the topic during the follow-up appointment. Follow-up - Plan: - Scheduled follow-up appointment in one month to reassess symptoms and treatment progress. - Advised patient to contact the clinic if mood worsens before the scheduled follow-up. 10/03/2024 Type 2 diabetes mellitus with hyperlipidemia (ICD-10 - E11.69) 10/03/2024 ENA (generalized anxiety disorder) (ICD-10 - F41.1) 07/23/2024 ENA (generalized anxiety disorder) (ICD-10 - [...] during the next visit in 2 months. 06/23/2024 ENA (generalized anxiety disorder) (ICD-10 - F41.1) Anxiety and Depressive Symptoms - Assessment: Patient reports increased anxiety and depressive symptoms over the past 2-3 weeks, with no clear trigger identified. Currently on duloxetine, buspirone, and Xanax as needed. No recent changes in medication. Patient mentions feeling off and experiencing increased anxiety, possibly related to the time change. Patient reports feeling exhausted from daily functioning and worrying about little things. - Plan: - Continue current medications (duloxetine, buspirone, and Xanax as needed). - Encourage patient to consider light therapy for potential seasonal affective disorder. - Schedule follow-up appointment in one month to reassess symptoms. - Instruct patient to contact the clinic if mood worsens before the scheduled follow-up. Sleep Issues - Assessment: Patient reports no sleep issues but expresses a preference for sleep. - Plan: - Monitor sleep patterns and address any concerns during the follow-up appointment. Medication Management - Assessment: Patient is currently taking metformin, Coreg, atorvastatin, and spironolactone for other medical conditions. Patient expressed reluctance to add any new medications. - Plan: - Continue current medications and monitor for any potential interactions or side effects. - Refill duloxetine and buspirone as needed. Social Support and Daily Functioning - Assessment: Patient has motivation to function due to caring for her 8-year-old granddaughter, Britney, 4 days a week. Patient reports struggling with motivation but manages to function for her granddaughter's sake. - Plan: - Encourage patient to maintain social support and daily functioning. - Reassess during the follow-up appointment. Light Therapy - Assessment: Discussed the potential benefits of light therapy for seasonal affective disorder with the patient. Provided information on light therapy options, including the use of a 10,000 lux lamp for 30 minutes in the morning. - Plan: - Provide patient with information on light therapy options and encourage her to consider trying it. - Revisit the topic during the follow-up appointment. Follow-up - Plan: - Scheduled follow-up appointment in one month to reassess symptoms and treatment progress. - Advised patient to contact the clinic if mood worsens before the scheduled follow-up. 02/01/2024 Major neurocognitive disorder (ICD9-CM - 294.20) 10/03/2024 Benign essential HTN (ICD-10 - I10) 02/01/2024 Other Learning About Depression Screening material was printed Anxiety - [<f41.9>] - the patient is being started on duloxetine 30 milligram daily for her anxiety. she is to continue taking buspirone twice a day. she is also being referred to a new counselor for crisis management and a therapist for trauma work. Depression - [<f32.9>] - the patient is being started on duloxetine 30 milligram daily for her depression. she is to continue taking buspirone twice a day. she is also being referred to a new counselor for crisis management and a therapist for trauma work. referral to the local chapter or national office of the Alzheimer's Association (0-222-272-3 900; http://www.a lz.org), the Alzheimer's Disease Education and Referral Center (ADEAR) (3-928-438-4 380; http://www.[facility].gov/[place] santacruz/), 10/03/2024 Other Anxiety disorder - Assessment: Patient [...] dose tablet if available. Plan Of Treatment Next Appt Details Provider Name:Thien Hagen , 10/31/2024 01:00:00 PM, [address], [address], [place], [address], Provider Name:Sona Archuleta , 11/24/2024 03:00:00 PM, [address], [address], [place], [address], Insurance Providers Payer Name Payer Address Payer Phone Subscriber Number Group Number Insured Name Patient Relationship to Insured Coverage Start Date Coverage End Date Medicare-[place] Medicare [address] [place] [phone] [id number] LUCERO VIDAL Self - patient is the insured [employer] Medicare Supplement [address] [address] [place] [address] [id number] CHRISTOPH VIDALHLEEN Self - patient is the insured Medical (General) History Medical History History ICD Code Problems: Difficulty coping with grief r esponses Generalized anxiety disorder Obesity Severe recurrent major depression withou t psychotic features Smoker The patient has a history of Type 2 Diabetes and Epidemia. She also has heart issues and had a cornea ulcer. She suffers from back pain. Surgical History Surgery Date(Month/Year) Other c-sections x2 08/06/1971 Hysterectomy (62059) 08/06/1999
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
[2024-10-25 13:11] LABS: Basophils Percent Auto 0.2 % (0.2-1.2); Hematocrit 53.7 % (37.0-47.0); Hemoglobin 17.6 g/dL (12.0-15.0); Immature Granulocyte Absolute 0.02 K/mm3 (0.00-0.031); Immature Granulocyte Percent A 0.2 % (0-0.5); Lymphocytes Absolute Auto 1.31 K/mm3 (0.9-3.2); Lymphocytes Percent Auto 15.4 % (18.3-44.2); Mean Corpuscular HGB Conc 32.8 g/dl (32-36); Mean Corpuscular Hemoglobin 31.3 pg (26-34); Mean Corpuscular Volume 95.6 fl (80-100); Mean Platelet Volume 10.5 fl (7.4-10.4); Monocytes Absolute Auto 0.7 K/mm3 (0.1-0.6); Monocytes Percent Auto 8.4 % (2.6-8.5); Neutrophils Absolute Auto 6.4 K/mm3 (1.3-6.7); Neutrophils Percent Auto 75.8 % (45.5-73.1); Platelet Count Result 170 k/mm3 (150-375); Red Blood Count 5.62 M/mm3 (4.2-5.4); Red Cell Distribution Width 12.5 % (11.5-14.5); White Blood Count 8.5 K/mm3 (4.5-10.0)
[2024-10-25 13:18] LABS: Alanine Aminotransferase 41 U/L (6-35); Albumin Level 4.3 g/dL (3.5-5.1); Alkaline Phosphatase 74 U/L (38-126); Anion Gap 6 mmol/L (4-12); Aspartate Amino Transferase 42 U/L (14-36); Bilirubin,Total 0.8 mg/dL (0.2-1.3); Blood Urea Nitrogen 16 mg/dL (7-17); Calcium 10.2 mg/dL (8.4-10.2); Carbon Dioxide 37 mmol/L (22-30); Chloride 89 mmol/L (98-107); Estimated Glomerular Filt Rate > 60; Glucose 161 mg/dL (65-110); Potassium 5.2 mmol/L (3.4-5.0); Sodium 132 mmol/L (137-145)
--- NOTE | 2024-10-25 13:22 | PC.NURSE ---
pt to radiology at this time
[2024-10-25] MEDS: MAGNESIUM SULF 2 GM/WATER 50ML 2 GM/50 ML BAG IVPB (13:25)
[2024-10-25 13:26] LABS: Magnesium 1.9 mg/dL (1.6-2.3)
[2024-10-25] MEDS: IPRATROPIUM 0.5 MG/ALBUTEROL SULFATE 2.5 MG AMPUL.NEB 3 ML INHALATION ×2 (13:26→13:45)
[2024-10-25] MEDS: methylPREDNISolone SOD SUCC 125 MG VIAL IV PUSH (13:26)
[2024-10-25 13:37] LABS: Base Excess ABG 4.2 mEq/l (+/-2.0); Fractional Inspired Oxygen 28 %; HCO3 ABG 31.3 mEq/l (22.0-26.0); Oxygen Content ABG 21.1 %vol (16.0-22.0); Oxygen Saturation ABG 90.1 % (95.0-100.0); PCO2 ABG 55.3 mmHg (35.0-45.0); PO2 ABG 60.4 mmHg (80.0-100.0); PO2 FiO2 Ratio Arterial Blood 2.16 %; Total Hemoglobin 17.2 g/dL (12.0-18.0); pH ABG 7.371 (7.350-7.450)
[2024-10-25 13:38] LABS: Device NASAL CANNULA; Modified Allen's Test Pass; Oxyhemoglobin 87.6 % THb (90.0-100.0); Site Drawn LEFT BRACHIAL
[2024-10-25 13:43] LABS: Influenza A QL RT-PCR Positive (Negative); Influenza B QL RT-PCR Negative (Negative); RSV RNA, RT-PCR Negative (Negative); SARS-CoV-2 RNA PCR Negative (Negative)
[2024-10-25] MEDS: IPRATROPIUM 0.5 MG/ALBUTEROL SULFATE 2.5 MG AMPUL.NEB 3 ML (13:48)
[2024-10-25 13:51] LABS: NT Pro B Type Natriuretic Pept 3200 pg/mL (19.9-100); Troponin I 0.143 ng/mL (0.000-0.034)
[2024-10-25] MEDS: ASPIRIN 81 MG CHEWABLE TABLET 324 MG PO (14:01)
[2024-10-25 15:00] LABS: D Dimer 0.58 ug/mL (<0.48)
[2024-10-25] MEDS: ALBUTEROL SULFATE NEB 2.5 MG/3 ML INH INHALATION ×2 (15:05→22:30)
--- NOTE | 2024-10-25 16:02 | ECG_ITS ---
Test Date: 2024-10-25 16:05:58 Measurements Intervals Rand Rate: 74 P: 62 CT: 143 QRS: 46 QRSD: 82 T: -5 QT: 361 QTc: 402 Interpretive Statements SINUS RHYTHM POSSIBLE LEFT ATRIAL ENLARGEMENT [-0.1mV P-WAVE IN V1/V2] MODERATE T-WAVE ABNORMALITY, CONSIDER ANTERIOR ISCHEMIA [-0.1+ mV T-WAVE IN V3/V4] Compared to ECG 10/25/2024 12:19:37 NO SIGNIFICANT CHANGES Electronically Signed On 10-25-2024 17:44:06 CDT by Zhao Escobedo M.D.
[2024-10-25] MEDS: AZITHROMYCIN 250 MG TABLET 500 MG PO (16:06)
[2024-10-25 16:38] LABS: Troponin I 0.116 ng/mL (0.000-0.034)
--- NOTE | 2024-10-25 17:13 | PC.NURSE ---
patient family to nurses desk stating patient had to use the restroom. due to patients low O2 sat dropping with movement, MATTHIAS Cárdenas advised to place an external catheter. patient and family aware and agree. patient pants removed and nancy-care performed with wipes provided. purewick in place and patient was able to urinate.
--- NOTE | 2024-10-25 20:55 | P.HP_ITS ---
H&P: HPI History of Present Illness Date/Time: 10/25/24 20:55 Chief Complaint: Shortness of breath. Narrative: This is a 74-year-old female smoker with chronic obstructive pulmonary disease, hypertension, hyperlipidemia, and type 2 diabetes mellitus who presented to the emergency department via EMS from home with complaints of shortness of breath. She has not been feeling well for several days with symptoms to include fever, body aches, headache, cough, and poor appetite. She had loose stools initially but those are slowing down. She has become increasingly short of breath on lesser and lesser exertion and she called 911 today as it was quite severe. On EMS arrival her SpO2 was in the 70s on room air. She was administered a DuoNeb treatment in route to the hospital with some improvement. Several of her family members have recently had influenza. Her grandchildren's have had similar symptoms and tested positive for influenza A a few days ago. She denies syncope, near syncope, chest and pleuritic pain, palpitations, vomiting, edema, and calf pain. In the ED: Vital signs on arrival include a temperature of 97.6?, blood pressure 106/67, pulse 76, respiratory rate 16, SpO2 86% on room air. Labs were significant for WBC count of 8.5, hemoglobin 17.6, D-dimer 0.58, troponin 0.143, proBNP 3200, sodium 132, potassium 5.2, chloride 89, carbon dioxide 37. She did test positive for influenza A. Chest CT showed patchy right upper lobe infiltrate which may be due to pneumonia. She received a nebulizer treatment, aspirin 324 mg, magnesium sulfate 2 g, azithromycin 500 mg, ceftriaxone 1 g, and methylprednisolone 125 mg. She is being admitted in this setting for further treatment. Review of Systems Review of Systems: 12 systems were reviewed and are negativ e except for as per HPI. [facility] Past Medical History Medical History (Updated 10/25/24 @ 21:02 by Wanda Bang PA-C) Chronic obstructive pulmonary disease Depression Anxiety Hyperlipidemia Hypertension CAD (coronary atherosclerotic disease) Surgical History Surgical History History of section History of hysterectomy Family History Family History Mother Depression Heart disease CHF (congestive heart failure) Father Pleurisy Sibling Hypertension Acute myocardial infarction Social History Social History (Updated 10/26/24 @ 04:29 by Wanda Bang PA-C) Social History: Surrogate medical decision maker: Abby Bowling, daughter. Code status: Full code. Smoking packs per day: 1 Smoking cigarettes per day: 20.0 Years smoked: 50 Smoking pack-years: 50.00 Smoking status: Current every day smoker Tobacco type: cigarettes Second hand tobacco smoke exposure: No Alcohol intake: never Substance use: never Substance use type: does not use Do You Feel Safe in your Home?: Yes Lack of Transportation: No Lack of Food: Never True Current Housing: I Have Housing Concerned About Future Housing: No Difficulty Paying Gas/Electric Bills: No Difficulty Paying for Meds: No Currently Unemployed: No Education: High School Diploma/GED Difficulty w/ Childcare or Family Care: No Spiritual care concerns: No Meds Home Medications and Allergies Home Medications ?Medication ?Instructions ?Recorded ?Confirmed ?Type albuterol sulfate 90 mcg/actuation 4 puff inhalation QID PRN 06/22/21 10/26/24 Rx aerosol inhaler shortness of breath or wheezing #8 grams alprazolam 0.25 mg tablet 0.25 mg PO DAILY PRN anxiety 01/16/22 10/26/24 History atorvastatin 40 mg tablet 40 mg PO QPM 01/16/22 10/26/24 History carvedilol 25 mg tablet 25 mg PO Q12H 01/16/22 10/26/24 History fluticasone furoate 100 1 inh inhalation DAILY 01/16/22 10/26/24 History mcg-vilanterol 25 mcg/dose inhalation powder (Breo Ellipta) metformin 500 mg tablet 1,000 mg PO QHS 01/16/22 10/26/24 History spironolactone 25 mg tablet 25 mg PO DAILY 01/16/22 10/26/24 History tiotropium bromide 18 mcg capsule 1 cap inhalation DAILY 01/16/22 10/26/24 History with inhalation device (Spiriva with HandiHaler) aspirin 81 mg tablet,delayed 81 mg PO QPM 10/26/24 10/26/24 History release (Adult Aspirin Regimen) calcium 600 mg (as 2 tablet PO DAILY 10/26/24 10/26/24 History carbonate)-vitamin D3 10 mcg (400 unit) tablet (Calcium 600 + D(3)) duloxetine 30 mg capsule,delayed 30 mg PO QAM 10/26/24 10/26/24 History release multivitamin,dn-suds-Qt-FA-min 1 tablet PO DAILY 10/26/24 10/26/24 History Allergies Allergy/AdvReac Type Severity Reaction Status Date / Time codeine Allergy VOMITING Verified 10/26/24 02:40 Bee sting Allergy Unknown Swelling Uncoded 10/26/24 02:40 Vital Signs Vital Signs - 24 hr 10/25/24 12:20 10/25/24 12:23 10/25/24 12:29 Temperature 97.6 F Pulse Rate 76 74 Respiratory Rate 16 26 H Blood Pressure 106/67 Pulse Oximetry 86 L 94 95 Oxygen Delivery Nasal Cannula Oxygen Flow Rate 3 10/25/24 12:30 10/25/24 12:31 10/25/24 12:50 Temperature Pulse Rate 72 72 73 Respiratory Rate 33 H 25 H 17 Blood Pressure 108/74 Pulse Oximetry 94 95 95 Oxygen Delivery Oxygen Flow Rate 10/25/24 13:00 10/25/24 13:01 10/25/24 13:15 Temperature Pulse Rate 72 73 78 Respiratory Rate 36 H 20 25 H Blood Pressure 116/67 Pulse Oximetry 94 94 93 Oxygen Delivery Oxygen Flow Rate 10/25/24 13:16 10/25/24 13:26 10/25/24 13:33 Temperature Pulse Rate 73 Respiratory Rate 29 H Blood Pressure 117/79 115/72 Pulse Oximetry 93 93 Oxygen Delivery Nasal Cannula Oxygen Flow Rate 2 10/25/24 13:33 10/25/24 13:38 10/25/24 13:46 Temperature Pulse Rate 76 75 72 Respiratory Rate 20 28 H 20 Blood Pressure Pulse Oximetry 100 Oxygen Delivery Oxygen Flow Rate 10/25/24 13:54 10/25/24 14:26 10/25/24 14:34 Temperature Pulse Rate 77 72 76 Respiratory Rate 20 28 H 15 Blood Pressure Pulse Oximetry 94 98 Oxygen Delivery Oxygen Flow Rate 10/25/24 14:51 10/25/24 15:00 10/25/24 15:01 Temperature Pulse Rate 74 74 74 Respiratory Rate 30 H 33 H 27 H Blood Pressure 117/74 Pulse Oximetry 93 92 92 Oxygen Delivery Oxygen Flow Rate 10/25/24 15:05 10/25/24 15:13 10/25/24 15:15 Temperature Pulse Rate 73 73 74 Respiratory Rate 20 20 28 H Blood Pressure Pulse Oximetry 97 Oxygen Delivery Oxygen Flow Rate 10/25/24 15:16 10/25/24 15:54 10/25/24 16:01 Temperature Pulse Rate 73 78 76 Respiratory Rate 20 24 H 30 H Blood Pressure 136/94 H Pulse Oximetry 99 93 94 Oxygen Delivery Oxygen Flow Rate 10/25/24 16:15 10/25/24 16:16 10/25/24 16:32 Temperature Pulse Rate 75 75 76 Respiratory Rate 28 H 25 H 19 Blood Pressure 108/83 Pulse Oximetry 95 95 94 Oxygen Delivery Oxygen Flow Rate 10/25/24 16:45 10/25/24 17:00 10/25/24 17:17 Temperature Pulse Rate 74 78 75 Respiratory Rate 20 22 H 27 H Blood Pressure Pulse Oximetry 94 96 Oxygen Delivery Oxygen Flow Rate 10/25/24 17:30 10/25/24 17:47 10/25/24 18:00 Temperature Pulse Rate 78 77 77 Respiratory Rate 20 23 H 28 H Blood Pressure Pulse Oximetry 96 96 97 Oxygen Delivery Oxygen Flow Rate 10/25/24 18:17 10/25/24 18:30 Temperature Pulse Rate 78 77 Respiratory Rate 27 H 22 H Blood Pressure Pulse Oximetry 96 95 Oxygen Delivery Oxygen Flow Rate Exam Narrative: General: Moderately ill-appearing female sitting up in bed. Weight: 81.5 kg. BMI: 31.8. HEENT: PERRL, EOMI. Sclera anicteric. Conjunctiva mildly injected. Eyes are watery. Tip of the nose has a slight bluish purple hue. Oral mucosa is tacky. Neck: Supple. No JVD or lymphadenopathy. Respiratory: Mild conversational dyspnea, speaking in 5 to 6 word sentences. Lung sounds are diminished throughout with scattered rhonchi and expiratory wheezing. Cardiovascular: Regular rate and rhythm with S1-S2. Gastrointestinal: Abdomen is soft, nontender, and nondistended with positive bowel sounds. Skin: Warm and dry. No rash or lesions on limited exam. Extremities: No cyanosis, clubbing, or edema. Radial and pedal pulses intact. Neurological: Alert. Cranial nerves 2-12 are grossly intact. No gross focal deficits to casual conversation. Psychiatric: Pleasant and cooperative with normal mood and affect. Judgment and insight intact. H&P: Results Labs Labs: Short CBC 10/25/24 Range/Units 12:59 WBC 8.5 (4.5-10.0) K/mm3 Hgb 17.6 H (12.0-15.0) g/dL Hct 53.7 H (37.0-47.0) % Plt Count 170 (150-375) k/mm3 BMP 10/25/24 12:59 Sodium 132 L Potassium 5.2 H Chloride 89 L Carbon Dioxide 37 H BUN 16 Creatinine 0.63 L Glucose 161 H Calcium 10.2 Cardiac Enzymes 10/25/24 10/25/24 Range/Units 12:59 16:07 Troponin I 0.143 H* 0.116 H* (0.000-0.034) ng/mL Liver Function 10/25/24 Range/Units 12:59 Total Bilirubin 0.8 (0.2-1.3) mg/dL AST 42 H (14-36) U/L ALT 41 H (6-35) U/L Alkaline Phosphatase 74 (38-126) U/L Albumin 4.3 (3.5-5.1) g/dL Imaging Chest X-Ray 10/25/24 13:34 Impression: 1: Small bilateral nodular densities not seen on prior examination. Follow-up CT chest with contrast recommended to exclude parenchymal nodules. 2: Borderline heart size with pulmonary vascular congestion. Chest CT 10/25/24 18:48 IMPRESSION: 1. COPD. 2. Patchy right upper lobe infiltrate which may be due to pneumonia. 3. Cholelithiasis. Assessment and Plan Assessment and plan (1) Acute respiratory failure with hypoxia: Code(s): J96.01 - Acute respiratory failure with hypoxia Status: Acute (2) Influenza A: Code(s): J10.1 - Influenza due to other identified influenza virus with other respiratory manifestations Status: Acute (3) Pneumonia of right upper lobe due to influenza A virus: Code(s): J11.00 - Influenza due to unidentified influenza virus with unspecified type of pneumonia Status: Acute (4) Non-ST elevation MT (NSTEMI): Code(s): I21.4 - Non-ST elevation (NSTEMI) myocardial infarction Status: Acute (5) Chronic obstructive pulmonary disease: Code(s): J44.9 - Chronic obstructive pulmonary disease, unspecified Status: Acute (6) Electrolyte abnormality: Code(s): E87.8 - Other disorders of electrolyte and fluid balance, not elsewhere classified Status: Acute Plan The patient presented to the emergency department for evaluation of URI symptoms and increasing shortness of breath as detailed in HPI. Labs, imaging, EKG, and all reports were personally reviewed. She is positive for influenza A and chest CT shows findings of patchy right upper lobe infiltrate. She has been started on oseltamivir and we will continue scheduled bronchodilators. She received azithro mycin and ceftriaxone in the ED however this is likely a viral pneumonia thus will hold on initiating further antibiotics at this time pending procalcitonin and sputum culture. Oxygen will be weaned as tolerated. She will need a home oxygen study prior to discharge as she may very well have a chronic oxygen requirement given her ABG findings and erythrocytosis. Initial troponin was elevated but has remained flat and this is less likely due to acute coronary syndrome and more likely related to hypoxia and infection. EKG showed moderate T-wave abnormalities in the anterior leads thus will obtain echocardiogram and troponins will be trended to peak. She looks a bit dry on exam and by labs and will be hydrated overnight. Initiate sliding scale insulin, Accu-Cheks, and hypoglycemic protocol. Her home medications will be reviewed and resumed as appropriate. Findings and treatment plan were discussed with the patient. Questions were solicited and answered to satisfaction. The patient's medical management will be taken over by the hospitalist team in a.m. Quality VTE Prophylaxis VTE prophylaxis: pharmacologic ordered Hospitalist [facility] Advance Care Plan I have confirmed that the patient's Advanced Care Plan is present, code status is documented, or surrogate decision maker is listed in patient medical record.: Yes Medication Reconciliation I have utilized all available resources to obtain, update and review the patients current medications (includes all prescriptions, OTC, herbals, cannabis, and nutritional supplements).: Yes
--- NOTE | 2024-10-25 22:10 | PC.NURSE ---
respiratory called at this time for scheduled breathing treatment
--- NOTE | 2024-10-25 23:50 | ADMGEN ---
This patient, Sherrie Topete, was admitted to IMU Room 209-01 on 10/25/24 at 2340. Patient/family oriented to hospital policies and general routines including ID bracelet, bed and alarms, visiting hours, pain management, procedures, bathroom and other care routines, personal items, smoking policy, room service/diet, and visiting hours. Information on how to activate the Rapid Response Team has been discussed. Patient/Family are encouraged to report perceived risks to care and to ask questions if they do not understand what they are told or what they should do.
[2024-10-26] VITALS (26 sets, daily range): BP systolic 96–125; BP diastolic 54–93; PULSE 69–96; RESP 16–22; TEMP 36.8–37.1; O2SAT 92–96
[2024-10-26 00:49] LABS: Hemoglobin A1C 6.5 % (<5.7)
[2024-10-26 00:51] LABS: Anion Gap 6 mmol/L (4-12); Blood Urea Nitrogen 13 mg/dL (7-17); Calcium 9.6 mg/dL (8.4-10.2); Carbon Dioxide 36 mmol/L (22-30); Chloride 90 mmol/L (98-107); Estimated CRCL calculation 84 ml/min; Estimated Glomerular Filt Rate > 60; Glucose 140 mg/dL (65-110); Potassium 4.9 mmol/L (3.4-5.0); Sodium 132 mmol/L (137-145)
[2024-10-26 01:13] LABS: Troponin I 0.073 ng/mL (0.000-0.034)
[2024-10-26 01:18] LABS: Procalcitonin 0.1 ng/mL
[2024-10-26] MEDS: OSELTAMIVIR PHOSPHATE 75 MG CAPSULE PO ×3 (02:09→21:50)
[2024-10-26 03:45] LABS: MRSA (PCR) NOT DETECTED (NOT DETECTE)
[2024-10-26] MEDS: ALBUTEROL SULFATE NEB 2.5 MG/3 ML INH INHALATION ×2 (03:53→09:00)
--- NOTE | 2024-10-26 03:54 | PCRCNOTE ---
treatment triaged due to workload
[2024-10-26 05:28] LABS: Basophils Percent Auto 0.1 % (0.2-1.2); Hematocrit 49.3 % (37.0-47.0); Hemoglobin 15.7 g/dL (12.0-15.0); Immature Granulocyte Absolute 0.04 K/mm3 (0.00-0.031); Immature Granulocyte Percent A 0.5 % (0-0.5); Lymphocytes Absolute Auto 1.14 K/mm3 (0.9-3.2); Lymphocytes Percent Auto 13.9 % (18.3-44.2); Mean Corpuscular HGB Conc 31.8 g/dl (32-36); Mean Corpuscular Hemoglobin 30.9 pg (26-34); Mean Platelet Volume 10.1 fl (7.4-10.4); Monocytes Absolute Auto 0.8 K/mm3 (0.1-0.6); Monocytes Percent Auto 9.3 % (2.6-8.5); Neutrophils Absolute Auto 6.2 K/mm3 (1.3-6.7); Neutrophils Percent Auto 76.2 % (45.5-73.1); Platelet Count Result 170 k/mm3 (150-375); Red Blood Count 5.08 M/mm3 (4.2-5.4); Red Cell Distribution Width 12.1 % (11.5-14.5); White Blood Count 8.2 K/mm3 (4.5-10.0)
[2024-10-26 05:40] LABS: Alanine Aminotransferase 40 U/L (6-35); Albumin Level 3.7 g/dL (3.5-5.1); Alkaline Phosphatase 64 U/L (38-126); Anion Gap 7 mmol/L (4-12); Aspartate Amino Transferase 34 U/L (14-36); Bilirubin,Total 0.4 mg/dL (0.2-1.3); Blood Urea Nitrogen 13 mg/dL (7-17); Calcium 9.2 mg/dL (8.4-10.2); Carbon Dioxide 35 mmol/L (22-30); Chloride 91 mmol/L (98-107); Estimated CRCL calculation 78 ml/min; Estimated Glomerular Filt Rate > 60; Glucose 141 mg/dL (65-110); Potassium 4.5 mmol/L (3.4-5.0); Sodium 133 mmol/L (137-145)
[2024-10-26] MEDS: SODIUM CHLORIDE 0.9% IV 1,000 ML 100 ML IV CONT (06:20)
[2024-10-26] MEDS: FLUTICASONE/SALMETEROL 115-21 MCG INHALER 1 PUFF 2 PUFF INHALATION ×2 (09:00→21:56)
[2024-10-26] MEDS: carvediloL 25 MG TABLET PO ×2 (09:22→21:50)
[2024-10-26] MEDS: ENOXAPARIN 40 MG/0.4 ML SYRINGE SUB-Q (09:23)
[2024-10-26] MEDS: DULoxetine HCL 30 MG CAPSULE.DR PO (09:23)
[2024-10-26] MEDS: CALCIUM/VITAMIN D 500 MG/5 MCG (200 I.U.) TABLET 1000 MG PO (09:23)
[2024-10-26] MEDS: THERAPEUTIC MULTIVITAMINS/MINERALS TAB (*BKC) 1 TABLET PO (09:23)
[2024-10-26 10:03] LABS: Glucose Point of Care 127 mg/dl (65-105)
--- NOTE | 2024-10-26 11:56 | PM.CNCAR ---
Assessment and Plan Assessment and plan (1) Elevated troponin: Code(s): R79.89 - Other specified abnormal findings of blood chemistry Status: Acute Plan 1. Elevated troponin 2. Acute hypoxic respiratory failure 3. Influenza A pneumonia 4. Coronary artery calcification noted on CT scan 10/25 5. COPD 6. Hypertension 7. Hyperlipidemia 8. Type 2 diabetes mellitus 9. Tobacco PLAN: -Troponin elevation probably demand ischemia in setting of acute hypoxic respiratory failure, influenza A pneumonia. Does not appear to be an acute coronary syndrome. No anginal symptoms. EKGs show sinus rhythm, possible left atrial enlargement, T-wave abnormalities in the anterior leads. Unable to see the EKG tracing from her previous EKG from 2020, however, report mentions borderline T-wave abnormality in the anterior leads; therefore, unclear if these T-wave abnormalities are new or worse. Continue ASA and statin. Will obtain echocardiogram. If echocardiogram without significant abnormality, then probably no additional inpatient cardiac evaluation warranted and she can follow up with us as outpatient. -NT pro BNP elevated at 3,200. However, does not appear to be in decompensated heart failure. Echocardiogram ordered and pending. -CT scan shows shows calcification of the aortic arch, descending thoracic aorta, LAD and LCX calcification. Continue ASA 81mg once daily and Atorvastatin 40mg once daily. History of Present Illness History of Present Illness Consult date/time: 10/26/24 11:56 Requesting physician: Angeles Willard APN-C Consult reason: Other (Elevated troponin) Reason For Visit: Hypoxia, COPD exacerbation; influenza A;PNA;NSTEMI Narrative: We are consulted for elevated troponin. This is a 74 year old female with COPD, hypertension, hyperlipidemia, type 2 diabetes mellitus, tobacco use who presented for shortness of breath. Has had viral symptoms over the past few days. Has influenza A. Upon EMS arrival, she was noted to be hypoxic into the 70s on room air. Given breathing treatment with improvement. No chest pain. Workup here shows troponins of 0.143, 0.116, 0.073. NT pro BNP elevated at 3,200. CXR with small bilateral nodular densities, borderline heart size with pulmonary vascular congestion. Chest CT with patchy right upper lobe infiltrate which may be due to pneumonia. Also shows calcification of the aortic arch, descending thoracic aorta, LAD and LCX calcification. EKGs show sinus rhythm, possible left atrial enlargement, T-wave abnormalities in the anterior leads. Unable to see the EKG tracing from her previous EKG from 2020, however, report mentions borderline T-wave abnormality in the anterior leads. She denies any recent or active chest pain, is sleepy but otherwise without complaints. Review of Systems Review of Systems: All systems reviewed & are unremarkable except as noted in HPI and below (HPI) [facility] Past Medical History Medical History Chronic obstructive pulmonary disease Depression Anxiety Hyperlipidemia Hypertension CAD (coronary atherosclerotic disease) Surgical History Surgical History History of section History of hysterectomy Family History Family History Mother Depression Heart disease CHF (congestive heart failure) Father Pleurisy Sibling Hypertension Acute myocardial infarction Social History Social History Social History: Surrogate medical decision maker: Abby Bowling, daughter. Code status: Full code. Smoking packs per day: 1 Smoking cigarettes per day: 20.0 Years smoked: 50 Smoking pack-years: 50.00 Smoking status: Current every day smoker Tobacco type: cigarettes Second hand tobacco smoke exposure: No Alcohol intake: never Substance use: never Substance use type: does not use Do You Feel Safe in your Home?: Yes Lack of Transportation: No Lack of Food: Never True Current Housing: I Have Housing Concerned About Future Housing: No Difficulty Paying Gas/Electric Bills: No Difficulty Paying for Meds: No Currently Unemployed: No Education: High School Diploma/GED Difficulty w/ Childcare or Family Care: No Spiritual care concerns: No Meds Home Medications and Allergies Home Medications ?Medication ?Instructions ?Recorded ?Confirmed ?Type albuterol sulfate 90 mcg/actuation 4 puff inhalation QID PRN 06/22/21 10/26/24 Rx aerosol inhaler shortness of breath or wheezing #8 grams alprazolam 0.25 mg tablet 0.25 mg PO DAILY PRN anxiety 01/16/22 10/26/24 History atorvastatin 40 mg tablet 40 mg PO QPM 01/16/22 10/26/24 History carvedilol 25 mg tablet 25 mg PO Q12H 01/16/22 10/26/24 History fluticasone furoate 100 1 inh inhalation DAILY 01/16/22 10/26/24 History mcg-vilanterol 25 mcg/dose inhalation powder (Breo Ellipta) metformin 500 mg tablet 1,000 mg PO QHS 01/16/22 10/26/24 History spironolactone 25 mg tablet 25 mg PO DAILY 01/16/22 10/26/24 History tiotropium bromide 18 mcg capsule 1 cap inhalation DAILY 01/16/22 10/26/24 History with inhalation device (Spiriva with HandiHaler) aspirin 81 mg tablet,delayed 81 mg PO QPM 10/26/24 10/26/24 History release (Adult Aspirin Regimen) calcium 600 mg (as 2 tablet PO DAILY 10/26/24 10/26/24 History carbonate)-vitamin D3 10 mcg (400 unit) tablet (Calcium 600 + D(3)) duloxetine 30 mg capsule,delayed 30 mg PO QAM 10/26/24 10/26/24 History release multivitamin,zx-uvjw-Rq-FA-min 1 tablet PO DAILY 10/26/24 10/26/24 History Allergies Allergy/AdvReac Type Severity Reaction Status Date / Time bee venom protein (honey Allergy Severe Severe Verified 10/26/24 12:08 bee) (bees) swelling localized to the sting area. codeine AdvReac VOMITING Verified 10/26/24 12:08 Vital Signs Vital Signs - 24 hr 10/25/24 12:20 10/25/24 12:23 10/25/24 12:29 Temperature 36.4 C Pulse Rate 76 74 Respiratory Rate 16 26 H Blood Pressure 106/67 Pulse Oximetry 86 L 94 95 Oxygen Delivery Nasal Cannula Oxygen Flow Rate 3 10/25/24 12:30 10/25/24 12:31 10/25/24 12:50 Temperature Pulse Rate 72 72 73 Respiratory Rate 33 H 25 H 17 Blood Pressure 108/74 Pulse Oximetry 94 95 95 Oxygen Delivery Oxygen Flow Rate 10/25/24 13:00 10/25/24 13:01 10/25/24 13:15 Temperature Pulse Rate 72 73 78 Respiratory Rate 36 H 20 25 H Blood Pressure 116/67 Pulse Oximetry 94 94 93 Oxygen Delivery Oxygen Flow Rate 10/25/24 13:16 10/25/24 13:26 10/25/24 13:33 Temperature Pulse Rate 73 Respiratory Rate 29 H Blood Pressure 117/79 115/72 Pulse Oximetry 93 93 Oxygen Delivery Nasal Cannula Oxygen Flow Rate 2 10/25/24 13:33 10/25/24 13:38 10/25/24 13:46 Temperature Pulse Rate 76 75 72 Respiratory Rate 20 28 H 20 Blood Pressure Pulse Oximetry 100 Oxygen Delivery Oxygen Flow Rate 10/25/24 13:54 10/25/24 14:26 10/25/24 14:34 Temperature Pulse Rate 77 72 76 Respiratory Rate 20 28 H 15 Blood Pressure Pulse Oximetry 94 98 Oxygen Delivery Oxygen Flow Rate 10/25/24 14:51 10/25/24 15:00 10/25/24 15:01 Temperature Pulse Rate 74 74 74 Respiratory Rate 30 H 33 H 27 H Blood Pressure 117/74 Pulse Oximetry 93 92 92 Oxygen Delivery Oxygen Flow Rate 10/25/24 15:05 10/25/24 15:13 10/25/24 15:15 Temperature Pulse Rate 73 73 74 Respiratory Rate 20 20 28 H Blood Pressure Pulse Oximetry 97 Oxygen Delivery Oxygen Flow Rate 10/25/24 15:16 10/25/24 15:54 10/25/24 16:01 Temperature Pulse Rate 73 78 76 Respiratory Rate 20 24 H 30 H Blood Pressure 136/94 H Pulse Oximetry 99 93 94 Oxygen Delivery Oxygen Flow Rate 10/25/24 16:15 10/25/24 16:16 10/25/24 16:32 Temperature Pulse Rate 75 75 76 Respiratory Rate 28 H 25 H 19 Blood Pressure 108/83 Pulse Oximetry 95 95 94 Oxygen Delivery Oxygen Flow Rate 10/25/24 16:45 10/25/24 17:00 10/25/24 17:17 Temperature Pulse Rate 74 78 75 Respiratory Rate 20 22 H 27 H Blood Pressure Pulse Oximetry 94 96 Oxygen Delivery Oxygen Flow Rate 10/25/24 17:30 10/25/24 17:47 10/25/24 18:00 Temperature Pulse Rate 78 77 77 Respiratory Rate 20 23 H 28 H Blood Pressure Pulse Oximetry 96 96 97 Oxygen Delivery Oxygen Flow Rate 10/25/24 18:17 10/25/24 18:30 10/25/24 18:46 Temperature Pulse Rate 78 77 77 Respiratory Rate 27 H 22 H 27 H Blood Pressure 123/87 Pulse Oximetry 96 95 96 Oxygen Delivery Oxygen Flow Rate 10/25/24 18:47 10/25/24 19:00 03/22/25 19:01 Temperature Pulse Rate 77 77 78 Respiratory Rate 29 H 25 H 44 H Blood Pressure 124/69 Pulse Oximetry 96 96 96 Oxygen Delivery Oxygen Flow Rate 10/25/24 19:15 10/25/24 19:16 10/25/24 19:30 Temperature Pulse Rate 79 80 75 Respiratory Rate 24 H 28 H 30 H Blood Pressure 122/74 Pulse Oximetry Oxygen Delivery Oxygen Flow Rate 10/25/24 19:47 10/25/24 19:51 10/25/24 20:00 Temperature Pulse Rate 77 77 79 Respiratory Rate 26 H 32 H 26 H Blood Pressure 127/74 Pulse Oximetry 96 95 Oxygen Delivery Oxygen Flow Rate 10/25/24 20:02 10/25/24 20:32 10/25/24 20:45 Temperature Pulse Rate 77 77 77 Respiratory Rate 33 H 26 H 26 H Blood Pressure 117/77 Pulse Oximetry 95 96 Oxygen Delivery Oxygen Flow Rate 10/25/24 20:46 10/25/24 21:01 10/25/24 21:26 Temperature Pulse Rate 78 79 80 Respiratory Rate 25 H 26 H 32 H Blood Pressure 136/73 137/76 Pulse Oximetry 96 96 96 Oxygen Delivery Oxygen Flow Rate 10/25/24 21:41 10/25/24 21:45 10/25/24 21:46 Temperature Pulse Rate 77 77 78 Respiratory Rate 22 H 21 H 26 H Blood Pressure 133/75 Pulse Oximetry 96 94 95 Oxygen Delivery Oxygen Flow Rate 10/25/24 22:00 10/25/24 22:15 10/25/24 22:30 Temperature Pulse Rate 78 78 85 Respiratory Rate 19 25 H 20 Blood Pressure Pulse Oximetry 95 94 Oxygen Delivery Oxygen Flow Rate 10/25/24 22:31 10/25/24 22:47 10/25/24 22:48 Temperature Pulse Rate 77 77 Respiratory Rate 24 H 18 Blood Pressure 113/87 Pulse Oximetry 93 94 94 Oxygen Delivery Nasal Cannula Oxygen Flow Rate 4 10/25/24 23:00 10/25/24 23:01 10/25/24 23:45 Temperature Pulse Rate 77 74 89 Respiratory Rate 15 13 Blood Pressure 133/75 Pulse Oximetry 94 95 Oxygen Delivery Oxygen Flow Rate 10/25/24 23:50 10/25/24 23:51 10/26/24 00:00 Temperature 36.6 C Pulse Rate 83 83 79 Respiratory Rate 24 H 24 H Blood Pressure 128/79 Pulse Oximetry 91 91 Oxygen Delivery Nasal Cannula Oxygen Flow Rate 4 10/26/24 02:00 10/26/24 04:00 10/26/24 04:53 Temperature 36.8 C Pulse Rate 75 75 76 Respiratory Rate 20 Blood Pressure 118/66 Pulse Oximetry 92 Oxygen Delivery Oxygen Flow Rate 10/26/24 05:15 10/26/24 06:00 10/26/24 08:00 Temperature 37.1 C Pulse Rate 76 85 89 Respiratory Rate 20 18 Blood Pressure 109/93 H Pulse Oximetry 92 95 Oxygen Delivery Nasal Cannula Oxygen Flow Rate 4 10/26/24 08:00 10/26/24 09:05 10/26/24 09:05 Temperature Pulse Rate 83 93 Respiratory Rate 20 Blood Pressure Pulse Oximetry 95 Oxygen Delivery Nasal Cannula Oxygen Flow Rate 4 10/26/24 09:13 10/26/24 09:22 10/26/24 10:00 Temperature Pulse Rate 89 79 96 Respiratory Rate 20 Blood Pressure Pulse Oximetry Oxygen Delivery Oxygen Flow Rate 10/26/24 11:53 Temperature 36.9 C Pulse Rate 77 Respiratory Rate 16 Blood Pressure 115/69 Pulse Oximetry 94 Oxygen Delivery Oxygen Flow Rate Exam Const: General: comfortable and no acute distress HENMT: Mouth: Yes moist mucous membranes Eyes: General: appearance normal, both eyes and all related structures Sclera: sclerae normal Resp: Effort & Inspection: normal respiratory effort Cardio: Rate: regular rate Rhythm: regular rhythm Heart sounds: no murmurs Skin: General skin exam: normal color Neuro: Speech: normal speech Psych: Mental Status: mental status grossly normal Affect: normal affect Results Labs and Meds 10/26/24 05:13 10/26/24 05:13 Lab results: Cardiac Enzymes 10/25/24 10/25/24 10/26/24 Range/Units 12:59 16:07 00:25 AST 42 H (14-36) U/L Troponin I 0.143 H* 0.116 H* 0.073 H* (0.000-0.034) ng/mL 10/26/24 Range/Units 05:13 AST 34 (14-36) U/L Troponin I (0.000-0.034) ng/mL CBC 10/25/24 10/26/24 Range/Units 12:59 05:13 WBC 8.5 8.2 (4.5-10.0) K/mm3 RBC 5.62 H 5.08 (4.2-5.4) M/mm3 Hgb 17.6 H 15.7 H (12.0-15.0) g/dL Hct 53.7 H 49.3 H (37.0-47.0) % Plt Count 170 170 (150-375) k/mm3 Lymph # (Auto) 1.31 1.14 (0.9-3.2) K/mm3 Slope # (Auto) 0.7 H 0.8 H (0.1-0.6) K/mm3 Eos # (Auto) 0.0 0.0 (0-0.3) K/mm3 Baso # (Auto) 0.0 0.0 (0.0-0.1) K/mm3 Comprehensive Metabolic Panel 10/25/24 10/26/24 10/26/24 Range/Units 12:59 00:25 05:13 Sodium 132 L 132 L 133 L (137-145) mmol/L Potassium 5.2 H 4.9 4.5 (3.4-5.0) mmol/L Chloride 89 L 90 L 91 L (98-107) mmol/L Carbon Dioxide 37 H 36 H 35 H (22-30) mmol/L BUN 16 13 13 (7-17) mg/dL Creatinine 0.63 L 0.50 L 0.55 L (0.7-1.0) mg/dL Glucose 161 H 140 H 141 H (65-110) mg/dL Calcium 10.2 9.6 9.2 (8.4-10.2) mg/dL AST 42 H 34 (14-36) U/L ALT 41 H 40 H (6-35) U/L Alkaline Phosphatase 74 64 (38-126) U/L Total Protein 8.0 7.0 (6.3-8.2) g/dL Albumin 4.3 3.7 (3.5-5.1) g/dL Intake and Output 10/25/24 10/26/24 10/26/24 23:59 07:59 15:59 Intake Total 50 200 Output Total 0 450 Balance 50 -250 Intake: IV 50 cefTRIAXone 1 GM/NS 50 ML 1 gm 50 In 50 ml @ 100 mls/hr IVPB ONCE STA Rx#:[id number] Oral 200 Output: Catheter Urine 0 450 External/Condom 0 450 Patient Weight 10/26/24 23:59 Weight 81.5 kg
--- NOTE | 2024-10-26 13:10 | P.PNIM_ITS ---
Progress Note: A&P Assessment and Plan (1) Acute respiratory failure with hypoxia: Code(s): J96.01 - Acute respiratory failure with hypoxia Status: Acute Assessment and Plan: 10/26/24: * In setting of acute Influenza A and PNA * Continue supportive care * Continue Tamiflu * Continue nebs * Supplemental Oxygen * Continue abx of Azithromycin and Rocephin (restarted today) * Cough meds TID * Wean oxygen as tolerated. * Daily weights * ECHO ordered * Accurate I&O * Await Sputum culture * Blood cultures pending * Consider consulting Pulmonology if any worsening of the respiratory system. * MRSA nasal swab negative. (2) Influenza A: Code(s): J10.1 - Influenza due to other identified influenza virus with other respiratory manifestations Status: Acute Assessment and Plan: 10/26/24: * See above (3) Pneumonia of right upper lobe due to influenza A virus: Code(s): J11.00 - Influenza due to unidentified influenza virus with unspecified type of pneumonia Status: Acute Assessment and Plan: 10/26/24: * See Above (4) Non-ST elevation CT (NSTEMI): Code(s): I21.4 - Non-ST elevation (NSTEMI) myocardial infarction Status: Acute Assessment and Plan: 10/26/24: * Troponin elevated x3 but declining. * Cardiology was consulted and believes the elevation is due to demand and not an actual cardiac event. * Will obtain ECHO. * Continue supportive care for current respiratory illness. (5) Diabetes mellitus: Code(s): E11.9 - Type 2 diabetes mellitus without complications Status: Acute Assessment and Plan: 10/26/24: * Glucose checks AC and HS. * SSI Low Dose * A1C is 6.5. * Heart healthy diet * Hypoglycemic protocol. (6) Chronic obstructive pulmonary disease: Code(s): J44.9 - Chronic obstructive pulmonary disease, unspecified Status: Chronic Assessment and Plan: 10/26/24: * Continue treatment of current respiratory infection. * Consider addition of Steroids to regimen if decompensation. * Consider Pulmonology consult if worsening. (7) Electrolyte abnormality: Code(s): E87.8 - Other disorders of electrolyte and fluid balance, not elsewhere classified Status: Acute Assessment and Plan: 10/26/24: * Monitor and adjust as needed according to trend. Time Spent With Patient Time with patient: 25 - 35 minutes Subjective Date/time seen: 10/26/24 13:10 Interval history: This pt was examined at the bedside today after being admitted with positive Flu A, and PNA. She also has elevated troponins which Cardiology was consulted for and suggests continuing to monitor on tele, obtain the ECHO and that they believe that the pts elevated trop is more related to heart strain instead of actual NSTEMI. Pt states today that she just doesn't feel well generally and has body aches and fatigue. She continues to require supplemental oxygen that she does not wear at home. Review of Systems Review of Systems: All systems reviewed & are unremarkable except as noted in HPI and below Exam Narrative: General: Ill-appearing female sitting up in bed. Appears tire. HEENT: PERRL, EOMI. MMM present. Neck: Supple. No JVD or lymphadenopathy. Respiratory: Lung sounds are decreased throughout all lobes without any a dventitious sounds. Cardiovascular: RRR, S1 and S2 present. No S3, S4, m,r,g,h Gastrointestinal: Abdomen is soft, nontender, and nondistended with positive bowel sounds. Skin: Warm and dry. No rash or lesions on limited exam. Extremities: No cyanosis, clubbing, or edema. Radial and pedal pulses intact. Neurological: Alert. Cranial nerves 2-12 are grossly intact. No gross focal deficits to casual conversation. Psychiatric: Pleasant and cooperative with normal mood and affect. Judgment and insight intact. Objective Data Vital Signs Vital Signs: Vital Signs - 24 hr 10/25/24 13:15 10/25/24 13:16 10/25/24 13:26 Temperature Pulse Rate 78 73 Respiratory Rate 25 H 29 H Blood Pressure 117/79 115/72 Pulse Oximetry 93 93 Oxygen Delivery Oxygen Flow Rate 10/25/24 13:33 10/25/24 13:33 10/25/24 13:38 Temperature Pulse Rate 76 75 Respiratory Rate 20 28 H Blood Pressure Pulse Oximetry 93 100 Oxygen Delivery Nasal Cannula Oxygen Flow Rate 2 10/25/24 13:46 10/25/24 13:54 10/25/24 14:26 Temperature Pulse Rate 72 77 72 Respiratory Rate 20 20 28 H Blood Pressure Pulse Oximetry 94 Oxygen Delivery Oxygen Flow Rate 10/25/24 14:34 10/25/24 14:51 10/25/24 15:00 Temperature Pulse Rate 76 74 74 Respiratory Rate 15 30 H 33 H Blood Pressure Pulse Oximetry 98 93 92 Oxygen Delivery Oxygen Flow Rate 10/25/24 15:01 10/25/24 15:05 10/25/24 15:13 Temperature Pulse Rate 74 73 73 Respiratory Rate 27 H 20 20 Blood Pressure 117/74 Pulse Oximetry 92 Oxygen Delivery Oxygen Flow Rate 10/25/24 15:15 10/25/24 15:16 10/25/24 15:54 Temperature Pulse Rate 74 73 78 Respiratory Rate 28 H 20 24 H Blood Pressure 136/94 H Pulse Oximetry 97 99 93 Oxygen Delivery Oxygen Flow Rate 10/25/24 16:01 10/25/24 16:15 10/25/24 16:16 Temperature Pulse Rate 76 75 75 Respiratory Rate 30 H 28 H 25 H Blood Pressure 108/83 Pulse Oximetry 94 95 95 Oxygen Delivery Oxygen Flow Rate 10/25/24 16:32 10/25/24 16:45 10/25/24 17:00 Temperature Pulse Rate 76 74 78 Respiratory Rate 19 20 22 H Blood Pressure Pulse Oximetry 94 94 Oxygen Delivery Oxygen Flow Rate 10/25/24 17:17 10/25/24 17:30 10/25/24 17:47 Temperature Pulse Rate 75 78 77 Respiratory Rate 27 H 20 23 H Blood Pressure Pulse Oximetry 96 96 96 Oxygen Delivery Oxygen Flow Rate 10/25/24 18:00 10/25/24 18:17 10/25/24 18:30 Temperature Pulse Rate 77 78 77 Respiratory Rate 28 H 27 H 22 H Blood Pressure Pulse Oximetry 97 96 95 Oxygen Delivery Oxygen Flow Rate 10/25/24 18:46 10/25/24 18:47 10/25/24 19:00 Temperature Pulse Rate 77 77 77 Respiratory Rate 27 H 29 H 25 H Blood Pressure 123/87 Pulse Oximetry 96 96 96 Oxygen Delivery Oxygen Flow Rate 10/25/24 19:01 10/25/24 19:15 10/25/24 19:16 Temperature Pulse Rate 78 79 80 Respiratory Rate 44 H 24 H 28 H Blood Pressure 124/69 122/74 Pulse Oximetry 96 Oxygen Delivery Oxygen Flow Rate 10/25/24 19:30 10/25/24 19:47 10/25/24 19:51 Temperature Pulse Rate 75 77 77 Respiratory Rate 30 H 26 H 32 H Blood Pressure 127/74 Pulse Oximetry 96 95 Oxygen Delivery Oxygen Flow Rate 10/25/24 20:00 10/25/24 20:02 10/25/24 20:32 Temperature Pulse Rate 79 77 77 Respiratory Rate 26 H 33 H 26 H Blood Pressure 117/77 Pulse Oximetry 95 Oxygen Delivery Oxygen Flow Rate 10/25/24 20:45 10/25/24 20:46 10/25/24 21:01 Temperature Pulse Rate 77 78 79 Respiratory Rate 26 H 25 H 26 H Blood Pressure 136/73 137/76 Pulse Oximetry 96 96 96 Oxygen Delivery Oxygen Flow Rate 10/25/24 21:26 10/25/24 21:41 10/25/24 21:45 Temperature Pulse Rate 80 77 77 Respiratory Rate 32 H 22 H 21 H Blood Pressure Pulse Oximetry 96 96 94 Oxygen Delivery Oxygen Flow Rate 10/25/24 21:46 10/25/24 22:00 10/25/24 22:15 Temperature Pulse Rate 78 78 78 Respiratory Rate 26 H 19 25 H Blood Pressure 133/75 Pulse Oximetry 95 95 94 Oxygen Delivery Oxygen Flow Rate 10/25/24 22:30 10/25/24 22:31 10/25/24 22:47 Temperature Pulse Rate 85 77 Respiratory Rate 20 24 H Blood Pressure 113/87 Pulse Oximetry 93 94 Oxygen Delivery Nasal Cannula Oxygen Flow Rate 4 10/25/24 22:48 10/25/24 23:00 10/25/24 23:01 Temperature Pulse Rate 77 77 74 Respiratory Rate 18 15 13 Blood Pressure 133/75 Pulse Oximetry 94 94 95 Oxygen Delivery Oxygen Flow Rate 10/25/24 23:45 10/25/24 23:50 10/25/24 23:51 Temperature 97.8 F Pulse Rate 89 83 83 Respiratory Rate 24 H 24 H Blood Pressure 128/79 Pulse Oximetry 91 91 Oxygen Delivery Nasal Cannula Oxygen Flow Rate 4 10/26/24 00:00 10/26/24 02:00 10/26/24 04:00 Temperature Pulse Rate 79 75 75 Respiratory Rate Blood Pressure Pulse Oximetry Oxygen Delivery Oxygen Flow Rate 10/26/24 04:53 10/26/24 05:15 10/26/24 06:00 Temperature 98.3 F Pulse Rate 76 76 85 Respiratory Rate 20 20 Blood Pressure 118/66 Pulse Oximetry 92 92 Oxygen Delivery Nasal Cannula Oxygen Flow Rate 4 10/26/24 08:00 10/26/24 08:00 10/26/24 09:05 Temperature 98.7 F Pulse Rate 89 83 Respiratory Rate 18 Blood Pressure 109/93 H Pulse Oximetry 95 95 Oxygen Delivery Nasal Cannula Oxygen Flow Rate 4 10/26/24 09:05 10/26/24 09:13 10/26/24 09:22 Temperature Pulse Rate 93 89 79 Respiratory Rate 20 20 Blood Pressure Pulse Oximetry Oxygen Delivery Oxygen Flow Rate 10/26/24 10:00 10/26/24 11:53 10/26/24 12:00 Temperature 98.4 F Pulse Rate 96 77 75 Respiratory Rate 16 Blood Pressure 115/69 Pulse Oximetry 94 Oxygen Delivery Oxygen Flow Rate Intake/Output Intake/Output: Intake & Output 10/23/24 10/24/24 10/25/24 10/26/24 23:59 23:59 23:59 23:59 Intake Total 100 200 Output Total 0 450 Balance 100 -250 Meds/Results Medications: Active Medications Generic Name Dose Route Start Last Admin Trade Name Freq PRN Reason Stop Dose Admin Acetaminophen 650 mg 10/25/24 19:27 Acetaminophen 325 Mg Tablet PO Q4H PRN Mild Pain (1-3) or Fever Albuterol 2.5 mg 10/26/24 09:27 Albuterol Sulfate Neb 2.5 Mg/3 Ml Inh INHALATION Q4HRT PRN Shortness Of Breath Albuterol/Ipratropium 3 ml 10/26/24 14:00 Ipratropium 0.5 Mg/Albuterol Sulfate 2.5 Mg Ampul.Neb 3 Ml INHALATION Q6HRT [facility] Alprazolam 0.25 mg 10/26/24 04:32 Alprazolam (*Crx) 0.25 Mg Tablet PO DAILY PRN anxiety Aspirin 81 mg 10/26/24 18:00 Aspirin 81 Mg Enteric Tablet PO QPM [facility] Atorvastatin Calcium 40 mg 10/26/24 18:00 Atorvastatin 40 Mg Tablet PO QPM [facility] Budesonide 0.5 mg 10/26/24 20:00 Budesonide Respule Neb 0.5 Mg/2 Ml Amp INHALATION Q12HRT [facility] Calcium Carbonate 1,000 mg 10/26/24 09:00 10/26/24 09:23 Calcium/Vitamin D 500 Mg/5 Mcg (200 I.U.) Tablet PO 1,000 mg QAM DAISY Administration Carvedilol 25 mg 10/26/24 09:00 10/26/24 09:22 Carvedilol 25 Mg Tablet PO 25 mg Q12HR DAISY Administration Dextrose 12.5 gm 10/25/24 23:36 Dextrose 50% 25 Gm/50 Ml Syringe IV PUSH PRN PRN Hypoglycemia Protocol Duloxetine HCl 30 mg 10/26/24 09:00 10/26/24 09:23 Duloxetine Hcl 30 Mg Capsule. PO 30 mg QAM DAISY Administration Enoxaparin Sodium 40 mg 10/26/24 09:00 10/26/24 09:23 Enoxaparin 40 Mg/0.4 Ml Syringe SUB-Q 40 mg DAILY DAISY Administration Glucagon 1 mg 10/25/24 23:36 Glucagon For Inj 1 Mg Vial IM PRN PRN Hypoglycemia Protocol Glucose 15 gm 10/25/24 23:36 Glucose Oral Gel 15 Gm Of Glucse In 37.5 Gm Tube PO PRN PRN Hypoglycemia Protocol Dextrose 1,000 mls @ 100 mls/hr 10/25/24 23:36 Dextrose 5% 1,000 Ml IVPB PRN PRN Hypoglycemia Protocol Sodium Chloride 1,000 mls @ 100 mls/hr 10/26/24 04:32 10/26/24 06:20 Normal Saline Iv IV CONT 10/26/24 14:31 100 mls/hr .Q10H ONE Administration Ceftriaxone Sodium 1 gm in 50 mls @ 100 mls/hr 10/26/24 18:00 Rocephin 1 Gm/Ns 50 Ml IVPB Q24H DAISY Azithromycin 500 mg in 250 mls @ 250 mls/hr 10/26/24 17:00 Zithromax IVPB Q24H [facility] Insulin Aspart 2 - 5 units 10/26/24 08:00 10/26/24 12:41 Insulin Aspart (*Bkc) 100 Units/Ml SUB-Q Not Given TIDWM [facility] Protocol Insulin Aspart 1 - 2 units 10/26/24 21:00 Insulin Aspart (*Bkc) 100 Units/Ml SUB-Q HS [facility] Protocol Multivitamins/Calcium 1 tablet 10/26/24 09:00 10/26/24 09:23 Therapeutic Multivitamins/Minerals Tab (*Bkc) PO 1 tablet QAM DAISY Administration Ondansetron HCl 4 mg 10/25/24 19:27 Ondansetron Inj 4 Mg/2 Ml Vial IV PUSH Q4H PRN Nausea Oseltamivir Phosphate 75 mg 10/25/24 23:55 10/26/24 09:23 Oseltamivir Phosphate 75 Mg Capsule PO 10/30/24 23:54 75 mg Q12HR DAISY Administration Perflutren Lipid Microsphere 0 ml 10/26/24 12:02 Perflutren Lipid Microspheres 1.5 Ml Vial Diluted To 10 Ml Total Volume IV PUSH 10/29/24 12:02 ONCE PRN adequate visualization Protocol Fluticasone/Salmeterol 2 puff 10/26/24 08:00 10/26/24 09:00 Fluticasone/Salmeterol 115-21 Mcg Inhaler 1 Puff INHALATION 2 puff Q12HRT DAISY Administration Radiology Results: ITS Impressions Chest X-Ray 10/25/24 13:34 Impression: 1: Small bilateral nodular densities not seen on prior examination. Follow-up CT chest with contrast recommended to exclude parenchymal nodules. 2: Borderline heart size with pulmonary vascular congestion. Chest CT 10/25/24 18:48 IMPRESSION: COPD Patchy right upper lobe infiltrate which may be due to pneumonia Cholelithiasis Labs Labs: Laboratory Results - last 24 hr 10/25/24 10/25/24 10/25/24 12:29 12:59 13:25 WBC 8.5 RBC 5.62 H Hgb 17.6 H Hct 53.7 H MCV 95.6 MCH 31.3 MCHC 32.8 RDW 12.5 Plt Count 170 MPV 10.5 H Immature Gran % (Auto) 0.2 Neut % (Auto) 75.8 H Lymph % (Auto) 15.4 L [place] % (Auto) 8.4 Eos % (Auto) 0.0 Baso % (Auto) 0.2 Lymph # (Auto) 1.31 [place] # (Auto) 0.7 H Eos # (Auto) 0.0 Baso # (Auto) 0.0 Abs Immat Gran (auto) 0.02 Absolute Neuts (auto) 6.4 Absolute Nucleated RBC 0.000 Nucleated RBC % 0.0 D-Dimer 0.58 H Puncture Site Left brachial ABG pH 7.371 ABG pCO2 55.3 H ABG pO2 60.4 L ABG PO2/FiO2 Ratio 2.16 ABG HCO3 31.3 H ABG O2 Saturation 90.1 L ABG O2 Content 21.1 ABG Base Excess 4.2 A-a Gradient 74.0 Oxyhemoglobin 87.6 L* Total Hemoglobin 17.2 O2 Delivery Device Nasal cannula O2 Liters/Min 2.0 FiO2 28 Sodium 132 L Potassium 5.2 H Chloride 89 L Carbon Dioxide 37 H Anion Gap 6 BUN 16 Creatinine 0.63 L Estim Creat Clear Calc Not Reportable Estimated GFR > 60 Glucose 161 H POC Capillary Glucose Hemoglobin A1c Calcium 10.2 Magnesium 1.9 Total Bilirubin 0.8 AST 42 H ALT 41 H Alkaline Phosphatase 74 Troponin I 0.143 H* NT-Pro-B Natriuret Pep 3200 H Total Protein 8.0 Albumin 4.3 Procalcitonin Nasal MRSA (PCR) Influenza A (RT-PCR) Positive A Influenza B (RT-PCR) Negative RSV (RT-PCR) Negative SARS-CoV-2 RNA (RT-PCR) Negative 10/25/24 10/26/24 10/26/24 16:07 00:25 01:59 WBC RBC Hgb Hct MCV MCH MCHC RDW Plt Count MPV Immature Gran % (Auto) Neut % (Auto) Lymph % (Auto) [place] % (Auto) Eos % (Auto) Baso % (Auto) Lymph # (Auto) [place] # (Auto) Eos # (Auto) Baso # (Auto) Abs Immat Gran (auto) Absolute Neuts (auto) Absolute Nucleated RBC Nucleated RBC % D-Dimer Puncture Site ABG pH ABG pCO2 ABG pO2 ABG PO2/FiO2 Ratio ABG HCO3 ABG O2 Saturation ABG O2 Content ABG Base Excess A-a Gradient Oxyhemoglobin Total Hemoglobin O2 Delivery Device O2 Liters/Min FiO2 Sodium 132 L Potassium 4.9 Chloride 90 L Carbon Dioxide 36 H Anion Gap 6 BUN 13 Creatinine 0.50 L Estim Creat Clear Calc 84 Estimated GFR > 60 Glucose 140 H POC Capillary Glucose Hemoglobin A1c 6.5 H Calcium 9.6 Magnesium 2.0 Total Bilirubin AST ALT Alkaline Phosphatase Troponin I 0.116 H* 0.073 H* NT-Pro-B Natriuret Pep Total Protein Albumin Procalcitonin 0.1 Nasal MRSA (PCR) Not detected Influenza A (RT-PCR) Influenza B (RT-PCR) RSV (RT-PCR) SARS-CoV-2 RNA (RT-PCR) 10/26/24 10/26/24 05:13 08:18 WBC 8.2 RBC 5.08 Hgb 15.7 H Hct 49.3 H MCV 97.0 MCH 30.9 MCHC 31.8 L RDW 12.1 Plt Count 170 MPV 10.1 Immature Gran % (Auto) 0.5 Neut % (Auto) 76.2 H Lymph % (Auto) 13.9 L [place] % (Auto) 9.3 H Eos % (Auto) 0.0 Baso % (Auto) 0.1 L Lymph # (Auto) 1.14 [place] # (Auto) 0.8 H Eos # (Auto) 0.0 Baso # (Auto) 0.0 Abs Immat Gran (auto) 0.04 H Absolute Neuts (auto) 6.2 Absolute Nucleated RBC 0.000 Nucleated RBC % 0.0 D-Dimer Puncture Site ABG pH ABG pCO2 ABG pO2 ABG PO2/FiO2 Ratio ABG HCO3 ABG O2 Saturation ABG O2 Content ABG Base Excess A-a Gradient Oxyhemoglobin Total Hemoglobin O2 Delivery Device O2 Liters/Min FiO2 Sodium 133 L Potassium 4.5 Chloride 91 L Carbon Dioxide 35 H Anion Gap 7 BUN 13 Creatinine 0.55 L Estim Creat Clear Calc 78 Estimated GFR > 60 Glucose 141 H POC Capillary Glucose 127 H Hemoglobin A1c Calcium 9.2 Magnesium Total Bilirubin 0.4 AST 34 ALT 40 H Alkaline Phosphatase 64 Troponin I NT-Pro-B Natriuret Pep Total Protein 7.0 Albumin 3.7 Procalcitonin Nasal MRSA (PCR) Influenza A (RT-PCR) Influenza B (RT-PCR) RSV (RT-PCR) SARS-CoV-2 RNA (RT-PCR) Quality VTE Prophylaxis VTE prophylaxis: pharmacologic ordered
[2024-10-26] MEDS: IPRATROPIUM 0.5 MG/ALBUTEROL SULFATE 2.5 MG AMPUL.NEB 3 ML INHALATION ×2 (13:39→21:56)
[2024-10-26 15:30] LABS: Glucose Point of Care 123 mg/dl (65-105)
[2024-10-26 16:43] LABS: Glucose Point of Care 125 mg/dl (65-105)
[2024-10-26] MEDS: BENZONATATE 100 MG CAPSULE 200 MG PO (17:31)
[2024-10-26] MEDS: AZITHROMYCIN 500 MG/NS 250 ML 500 MG/250 ML BAG 250 MG IVPB (17:31)
[2024-10-26] MEDS: ATORVASTATIN 40 MG TABLET PO (17:31)
[2024-10-26] MEDS: ASPIRIN 81 MG ENTERIC TABLET PO (17:31)
[2024-10-26 20:25] LABS: Glucose Point of Care 121 mg/dl (65-105)
[2024-10-26] MEDS: BUDESONIDE RESPULE NEB 0.5 MG/2 ML AMP INHALATION (21:56)
[2024-10-27] VITALS (22 sets, daily range): BP systolic 100–137; BP diastolic 48–77; PULSE 65–84; RESP 20–26; TEMP 36.1–37; O2SAT 91–98
[2024-10-27] MEDS: IPRATROPIUM 0.5 MG/ALBUTEROL SULFATE 2.5 MG AMPUL.NEB 3 ML INHALATION ×4 (02:39→20:02)
[2024-10-27 04:16] LABS: Basophils Percent Auto 0.1 % (0.2-1.2); Eosinophils Percent Auto 0.1 % (0-4.4); Hematocrit 49.4 % (37.0-47.0); Hemoglobin 15.7 g/dL (12.0-15.0); Immature Granulocyte Absolute 0.03 K/mm3 (0.00-0.031); Immature Granulocyte Percent A 0.4 % (0-0.5); Lymphocytes Absolute Auto 1.78 K/mm3 (0.9-3.2); Lymphocytes Percent Auto 21.5 % (18.3-44.2); Mean Corpuscular HGB Conc 31.8 g/dl (32-36); Mean Corpuscular Hemoglobin 31.3 pg (26-34); Mean Corpuscular Volume 98.4 fl (80-100); Mean Platelet Volume 9.6 fl (7.4-10.4); Monocytes Absolute Auto 0.9 K/mm3 (0.1-0.6); Monocytes Percent Auto 10.4 % (2.6-8.5); Neutrophils Absolute Auto 5.6 K/mm3 (1.3-6.7); Neutrophils Percent Auto 67.5 % (45.5-73.1); Platelet Count Result 174 k/mm3 (150-375); Red Blood Count 5.02 M/mm3 (4.2-5.4); Red Cell Distribution Width 12.3 % (11.5-14.5); White Blood Count 8.3 K/mm3 (4.5-10.0)
[2024-10-27 04:32] LABS: Alanine Aminotransferase 55 U/L (6-35); Albumin Level 3.4 g/dL (3.5-5.1); Alkaline Phosphatase 71 U/L (38-126); Anion Gap 2 mmol/L (4-12); Aspartate Amino Transferase 39 U/L (14-36); Bilirubin,Total 0.5 mg/dL (0.2-1.3); Blood Urea Nitrogen 11 mg/dL (7-17); Calcium 9.2 mg/dL (8.4-10.2); Carbon Dioxide 39 mmol/L (22-30); Chloride 95 mmol/L (98-107); Estimated CRCL calculation 82 ml/min; Estimated Glomerular Filt Rate > 60; Glucose 99 mg/dL (65-110); Potassium 4.7 mmol/L (3.4-5.0); Sodium 136 mmol/L (137-145)
[2024-10-27 07:57] LABS: Glucose Point of Care 103 mg/dl (65-105)
--- NOTE | 2024-10-27 08:05 | P.PNIM_ITS ---
Progress Note: A&P Assessment and Plan (1) Acute heart failure: Code(s): I50.9 - Heart failure, unspecified Status: Acute (2) Non-ST elevation NH (NSTEMI): Code(s): I21.4 - Non-ST elevation (NSTEMI) myocardial infarction Status: Acute (3) Elevated troponin: Code(s): R79.89 - Other specified abnormal findings of blood chemistry Status: Acute (4) Diabetes mellitus: Code(s): E11.9 - Type 2 diabetes mellitus without complications Status: Acute (5) COPD exacerbation: Code(s): J44.1 - Chronic obstructive pulmonary disease with (acute) exacerbation Status: Acute (6) Pneumonia of right upper lobe due to influenza A virus: Code(s): J11.00 - Influenza due to unidentified influenza virus with unspecified type of pneumonia Status: Acute Plan (1) Acute respiratory failure with hypoxia and hypercapnia: Code(s): J96.01 - Acute respiratory failure with hypoxia Status: Acute Assessment and Plan: Resulting from influenza a infection, pneumonia COPD Continue bronchodilator Chronic patient 3 L oxygen Influenza A: Code(s): On Tamiflu since October 25 Pneumonia of right upper lobe due to influenza A virus: Code(s): J11.00 - Influenza due to unidentified influenza virus with unspecified type of pneumonia Status: Acute Assessment and Plan: Continue Tamiflu, azithromycin and ceftriaxone IV Non-ST elevation NH (NSTEMI): Code(s): I21.4 - Non-ST elevation (NSTEMI) myocardial infarction Status: Acute Elevated troponin, no chest pain, EKG shows no specific ST or T-wave changes Resulting from demand ischemia Appreciate cardiology's consultation Diabetes mellitus: Code(s): E11.9 - Type 2 diabetes mellitus without complications Status: Acute Assessment and Plan: 10/26/24: * Glucose checks AC and HS. * SSI Low Dose * A1C is 6.5. Glucose a control in target range (6) Chronic obstructive pulmonary disease: Code(s): J44.9 - Chronic obstructive pulmonary disease, unspecified Status: Chronic Assessment and Plan: COPD exacerbation due to pneumonia and influenza infection Continue treatment of current respiratory infection. Continue Symbicort, 2 puffs q.12 hours, continue DuoNeb scheduled q.6 hours, Electrolyte abnormality: Code(s): E87.8 - Other disorders of electrolyte and fluid balance, not elsewhere classified Status: Acute Assessment and Plan: 10/26/24: * Monitor and adjust as needed according to trend.Time Spent With Patient Time with patient: 25 - 35 minutes Subjective Date/time seen: 10/27/24 08:05 Interval history: I saw examined patient today. Patient still has cough with yellow-greenish sputum. But patient has last production phlegm. Patient still has shortness breath at rest, but denies chest pain, palpitation, abdomen pain, nausea vomiting diarrhea dysuria. Patient needs BiPAP in the night, now patient is on 3 L oxygen, patient has tachycardia tachypnea. Labs reviewed Exam Narrative: GENERAL: Ill-appearing in no acute distress. Well-nourished. - EYES: EOMI. Anicteric. - HENT: Moist mucous membranes. - LUNGS: Wheezing bilateral, decreased breath sound bilaterally, tachypnea - CARDIOVASCULAR: Regular rate and rhyth m. No murmur. No JVD. - ABDOMEN: Soft, non-tender and non-dist ended. No palpable masses. - EXTREMITIES: No edema. Peripheral puls es 2+. Non-tender. - NEUROLOGIC: No focal neurological defi cits. CN II-XII grossly intact. - PSYCHIATRIC: Awake, Alert and oriented x 3. Appropriate mood and affect. - SKIN: No rashes or lesions. Warm. - LYMPH: No cervical lymphadenopathy. Objective Data Vital Signs Vital Signs: Vital Signs - 24 hr 10/26/24 09:05 10/26/24 09:05 10/26/24 09:13 Temperature Pulse Rate 93 89 Respiratory Rate 20 20 Blood Pressure Pulse Oximetry 95 Oxygen Delivery Nasal Cannula Oxygen Flow Rate 4 10/26/24 09:22 10/26/24 10:00 10/26/24 11:53 Temperature 98.4 F Pulse Rate 79 96 77 Respiratory Rate 16 Blood Pressure 115/69 Pulse Oximetry 94 Oxygen Delivery Oxygen Flow Rate 10/26/24 12:00 10/26/24 13:39 10/26/24 13:50 Temperature Pulse Rate 75 84 76 Respiratory Rate 20 20 Blood Pressure Pulse Oximetry Oxygen Delivery Oxygen Flow Rate 10/26/24 14:00 10/26/24 16:00 10/26/24 16:00 Temperature 98.5 F Pulse Rate 79 81 77 Respiratory Rate 18 Blood Pressure 112/55 L Pulse Oximetry 93 Oxygen Delivery Oxygen Flow Rate 10/26/24 18:00 10/26/24 20:00 10/26/24 20:00 Temperature Pulse Rate 76 75 Respiratory Rate Blood Pressure Pulse Oximetry 93 Oxygen Delivery Nasal Cannula Oxygen Flow Rate 3 10/26/24 20:19 10/26/24 21:50 10/26/24 21:55 Temperature 98.2 F Pulse Rate 72 78 Respiratory Rate 22 H Blood Pressure 125/77 Pulse Oximetry 95 93 Oxygen Delivery Nasal Cannula Oxygen Flow Rate 3 10/26/24 21:56 10/26/24 22:00 10/26/24 22:12 Temperature Pulse Rate 69 73 75 Respiratory Rate 20 20 Blood Pressure Pulse Oximetry Oxygen Delivery Oxygen Flow Rate 10/26/24 23:09 10/27/24 00:00 10/27/24 00:00 Temperature 98.3 F Pulse Rate 71 73 Respiratory Rate 20 Blood Pressure 96/54 L Pulse Oximetry 96 96 Oxygen Delivery Nasal Cannula Oxygen Flow Rate 3 10/27/24 02:00 10/27/24 02:39 10/27/24 02:50 Temperature Pulse Rate 73 76 73 Respiratory Rate 20 20 Blood Pressure Pulse Oximetry Oxygen Delivery Oxygen Flow Rate 10/27/24 03:52 10/27/24 04:00 10/27/24 04:00 Temperature 98.6 F Pulse Rate 77 76 Respiratory Rate 20 Blood Pressure 100/48 L Pulse Oximetry 98 98 Oxygen Delivery Nasal Cannula Oxygen Flow Rate 3 10/27/24 06:00 Temperature Pulse Rate 79 Respiratory Rate Blood Pressure Pulse Oximetry Oxygen Delivery Oxygen Flow Rate Intake/Output Intake/Output: Intake & Output 10/24/24 10/25/24 10/26/24 10/27/24 23:59 23:59 23:59 23:59 Intake Total 100 2270 850 Output Total 0 1550 700 Balance 100 720 150 Meds/Results Medications: Active Medications Generic Name Dose Route Start Last Admin Trade Name Freq PRN Reason Stop Dose Admin Acetaminophen 650 mg 10/25/24 19:27 Acetaminophen 325 Mg Tablet PO Q4H PRN Mild Pain (1-3) or Fever Albuterol 2.5 mg 10/26/24 09:27 Albuterol Sulfate Neb 2.5 Mg/3 Ml Inh INHALATION Q4HRT PRN Shortness Of Breath Albuterol/Ipratropium 3 ml 10/26/24 14:00 10/27/24 02:39 Ipratropium 0.5 Mg/Albuterol Sulfate 2.5 Mg Ampul.Neb 3 Ml INHALATION 3 ml Q6HRT DAISY Administration Alprazolam 0.25 mg 10/26/24 04:32 Alprazolam (*Crx) 0.25 Mg Tablet PO DAILY PRN anxiety Aspirin 81 mg 10/26/24 18:00 10/26/24 17:31 Aspirin 81 Mg Enteric Tablet PO 81 mg QPM DAISY Administration Atorvastatin Calcium 40 mg 10/26/24 18:00 10/26/24 17:31 Atorvastatin 40 Mg Tablet PO 40 mg QPM DAISY Administration Benzonatate 200 mg 10/26/24 13:00 10/26/24 17:31 Benzonatate 100 Mg Capsule PO 200 mg TID DAISY Administration Budesonide 0.5 mg 10/26/24 20:00 10/26/24 21:56 Budesonide Respule Neb 0.5 Mg/2 Ml Amp INHALATION 0.5 mg Q12HRT DAISY Administration Calcium Carbonate 1,000 mg 10/26/24 09:00 10/26/24 09:23 Calcium/Vitamin D 500 Mg/5 Mcg (200 I.U.) Tablet PO 1,000 mg QAM DAISY Administration Carvedilol 25 mg 10/26/24 09:00 10/26/24 21:50 Carvedilol 25 Mg Tablet PO 25 mg Q12HR DAISY Administration Dextrose 12.5 gm 10/25/24 23:36 Dextrose 50% 25 Gm/50 Ml Syringe IV PUSH PRN PRN Hypoglycemia Protocol Duloxetine HCl 30 mg 10/26/24 09:00 10/26/24 09:23 Duloxetine Hcl 30 Mg Capsule. PO 30 mg QAM DAISY Administration Enoxaparin Sodium 40 mg 10/26/24 09:00 10/26/24 09:23 Enoxaparin 40 Mg/0.4 Ml Syringe SUB-Q 40 mg DAILY DAISY Administration Glucagon 1 mg 10/25/24 23:36 Glucagon For Inj 1 Mg Vial IM PRN PRN Hypoglycemia Protocol Glucose 15 gm 10/25/24 23:36 Glucose Oral Gel 15 Gm Of Glucse In 37.5 Gm Tube PO PRN PRN Hypoglycemia Protocol Dextrose 1,000 mls @ 100 mls/hr 10/25/24 23:36 Dextrose 5% 1,000 Ml IVPB PRN PRN Hypoglycemia Protocol Ceftriaxone Sodium 1 gm in 50 mls @ 100 mls/hr 10/26/24 18:00 10/26/24 19:14 Rocephin 1 Gm/Ns 50 Ml IVPB Infused Q24H DAISY Infusion Azithromycin 500 mg in 250 mls @ 250 mls/hr 10/26/24 17:00 10/26/24 18:46 Zithromax IVPB Infused Q24H DAISY Infusion Insulin Aspart 2 - 5 units 10/26/24 08:00 10/26/24 17:25 Insulin Aspart (*Bkc) 100 Units/Ml SUB-Q Not Given TIDWM DAISY Protocol Insulin Aspart 1 - 2 units 10/26/24 21:00 10/26/24 21:39 Insulin Aspart (*Bkc) 100 Units/Ml SUB-Q Not Given HS DAISY Protocol Multivitamins/Calcium 1 tablet 10/26/24 09:00 10/26/24 09:23 Therapeutic Multivitamins/Minerals Tab (*Bkc) PO 1 tablet QAM DAISY Administration Ondansetron HCl 4 mg 10/25/24 19:27 Ondansetron Inj 4 Mg/2 Ml Vial IV PUSH Q4H PRN Nausea Oseltamivir Phosphate 75 mg 10/25/24 23:55 10/26/24 21:50 Oseltamivir Phosphate 75 Mg Capsule PO 10/30/24 23:54 75 mg Q12HR DAISY Administration Perflutren Lipid Microsphere 0 ml 10/26/24 12:02 Perflutren Lipid Microspheres 1.5 Ml Vial Diluted To 10 Ml Total Volume IV PUSH 10/29/24 12:02 ONCE PRN adequate visualization Protocol Fluticasone/Salmeterol 2 puff 10/26/24 08:00 10/26/24 21:56 Fluticasone/Salmeterol 115-21 Mcg Inhaler 1 Puff INHALATION 2 puff Q12HRT DAISY Administration Radiology Results: ITS Impressions Chest X-Ray 10/25/24 13:34 Impression: 1: Small bilateral nodular densities not seen on prior examination. Follow-up CT chest with contrast recommended to exclude parenchymal nodules. 2: Borderline heart size with pulmonary vascular congestion. Chest CT 10/25/24 18:48 IMPRESSION: COPD Patchy right upper lobe infiltrate which may be due to pneumonia Cholelithiasis Labs Labs: Laboratory Results - last 24 hr 10/26/24 10/26/24 10/26/24 08:18 11:43 16:40 WBC RBC Hgb Hct MCV MCH MCHC RDW Plt Count MPV Immature Gran % (Auto) Neut % (Auto) Lymph % (Auto) [place] % (Auto) Eos % (Auto) Baso % (Auto) Lymph # (Auto) [place] # (Auto) Eos # (Auto) Baso # (Auto) Abs Immat Gran (auto) Absolute Neuts (auto) Absolute Nucleated RBC Nucleated RBC % Sodium Potassium Chloride Carbon Dioxide Anion Gap BUN Creatinine Estim Creat Clear Calc Estimated GFR Glucose POC Capillary Glucose 127 H 123 H 125 H Calcium Total Bilirubin AST ALT Alkaline Phosphatase Total Protein Albumin 10/26/24 10/27/24 10/27/24 20:18 03:54 07:45 WBC 8.3 RBC 5.02 Hgb 15.7 H Hct 49.4 H MCV 98.4 MCH 31.3 MCHC 31.8 L RDW 12.3 Plt Count 174 MPV 9.6 Immature Gran % (Auto) 0.4 Neut % (Auto) 67.5 Lymph % (Auto) 21.5 [place] % (Auto) 10.4 H Eos % (Auto) 0.1 Baso % (Auto) 0.1 L Lymph # (Auto) 1.78 [place] # (Auto) 0.9 H Eos # (Auto) 0.0 Baso # (Auto) 0.0 Abs Immat Gran (auto) 0.03 Absolute Neuts (auto) 5.6 Absolute Nucleated RBC 0.000 Nucleated RBC % 0.0 Sodium 136 L Potassium 4.7 Chloride 95 L Carbon Dioxide 39 H Anion Gap 2 L BUN 11 Creatinine 0.52 L Estim Creat Clear Calc 82 Estimated GFR > 60 Glucose 99 POC Capillary Glucose 121 H 103 Calcium 9.2 Total Bilirubin 0.5 AST 39 H ALT 55 H Alkaline Phosphatase 71 Total Protein 6.0 L Albumin 3.4 L
[2024-10-27] MEDS: carvediloL 25 MG TABLET PO ×2 (08:22→21:03)
[2024-10-27] MEDS: BENZONATATE 100 MG CAPSULE 200 MG PO ×3 (08:22→16:01)
[2024-10-27] MEDS: DULoxetine HCL 30 MG CAPSULE.DR PO (08:22)
[2024-10-27] MEDS: CALCIUM/VITAMIN D 500 MG/5 MCG (200 I.U.) TABLET 1000 MG PO (08:22)
[2024-10-27] MEDS: THERAPEUTIC MULTIVITAMINS/MINERALS TAB (*BKC) 1 TABLET PO (08:22)
[2024-10-27] MEDS: ENOXAPARIN 40 MG/0.4 ML SYRINGE SUB-Q (08:23)
[2024-10-27] MEDS: OSELTAMIVIR PHOSPHATE 75 MG CAPSULE PO ×2 (08:23→21:03)
[2024-10-27] MEDS: BUDESONIDE RESPULE NEB 0.5 MG/2 ML AMP INHALATION ×2 (08:32→20:02)
[2024-10-27] MEDS: FLUTICASONE/SALMETEROL 115-21 MCG INHALER 1 PUFF 2 PUFF INHALATION ×2 (08:33→20:02)
--- NOTE | 2024-10-27 08:55 | PM.PNCARD ---
Progress Note: A&P Assessment and Plan (1) Elevated troponin: Code(s): R79.89 - Other specified abnormal findings of blood chemistry Status: Acute Plan 1. Elevated troponin 2. Acute hypoxic respiratory failure 3. Influenza A pneumonia 4. Coronary artery calcification noted on CT scan 10/25 5. COPD 6. Hypertension 7. Hyperlipidemia 8. Type 2 diabetes mellitus 9. Tobacco PLAN: -Troponin elevation probably demand ischemia in setting of acute hypoxic respiratory failure, influenza A pneumonia. Does not appear to be an acute coronary syndrome. No anginal symptoms. EKGs show sinus rhythm, possible left atrial enlargement, T-wave abnormalities in the anterior leads. Unable to see the EKG tracing from her previous EKG from 2020, however, report mentions borderline T-wave abnormality in the anterior leads; therefore, unclear if these T-wave abnormalities are new or worse. Continue ASA and statin. Awaiting echocardiogram - if echocardiogram without significant abnormality, then probably no additional inpatient cardiac evaluation warranted and she can follow up with us as outpatient. -NT pro BNP elevated at 3,200. However, does not appear to be in decompensated heart failure. Echocardiogram ordered and pending. -CT scan shows shows calcification of the aortic arch, descending thoracic aorta, LAD and LCX calcification. Continue ASA 81mg once daily and Atorvastatin 40mg once daily. Subjective Date/time seen: 10/27/24 08:55 Interval history: Cardiology follow up visit Feels okay today - fatigue is her only complaint. Denies any chest pain. Review of Systems Review of Systems: All systems reviewed & are unremarkable except as noted in HPI and below (HPI) Exam Const: General: comfortable and no acute distress HENMT: Mouth: Yes moist mucous membranes Eyes: General: appearance normal, both eyes and all related structures Sclera: sclerae normal Resp: Effort & Inspection: normal respiratory effort Cardio: Rate: regular rate Rhythm: regular rhythm Heart sounds: no murmurs Skin: General skin exam: normal color Neuro: Speech: normal speech Psych: Mental Status: mental status grossly normal Affect: normal affect Objective Data Vital Signs Vital Signs: Vital Signs - 24 hr 10/26/24 09:05 10/26/24 09:05 10/26/24 09:13 Temperature Pulse Rate 93 89 Respiratory Rate 20 20 Blood Pressure Pulse Oximetry 95 Oxygen Delivery Nasal Cannula Oxygen Flow Rate 4 10/26/24 09:22 10/26/24 10:00 10/26/24 11:53 Temperature 36.9 C Pulse Rate 79 96 77 Respiratory Rate 16 Blood Pressure 115/69 Pulse Oximetry 94 Oxygen Delivery Oxygen Flow Rate 10/26/24 12:00 10/26/24 13:39 10/26/24 13:50 Temperature Pulse Rate 75 84 76 Respiratory Rate 20 20 Blood Pressure Pulse Oximetry Oxygen Delivery Oxygen Flow Rate 10/26/24 14:00 10/26/24 16:00 10/26/24 16:00 Temperature 36.9 C Pulse Rate 79 81 77 Respiratory Rate 18 Blood Pressure 112/55 L Pulse Oximetry 93 Oxygen Delivery Oxygen Flow Rate 10/26/24 18:00 10/26/24 20:00 10/26/24 20:00 Temperature Pulse Rate 76 75 Respiratory Rate Blood Pressure Pulse Oximetry 93 Oxygen Delivery Nasal Cannula Oxygen Flow Rate 3 10/26/24 20:19 10/26/24 21:50 10/26/24 21:55 Temperature 36.8 C Pulse Rate 72 78 Respiratory Rate 22 H Blood Pressure 125/77 Pulse Oximetry 95 93 Oxygen Delivery Nasal Cannula Oxygen Flow Rate 3 10/26/24 21:56 10/26/24 22:00 10/26/24 22:12 Temperature Pulse Rate 69 73 75 Respiratory Rate 20 20 Blood Pressure Pulse Oximetry Oxygen Delivery Oxygen Flow Rate 10/26/24 23:09 10/27/24 00:00 10/27/24 00:00 Temperature 36.8 C Pulse Rate 71 73 Respiratory Rate 20 Blood Pressure 96/54 L Pulse Oximetry 96 96 Oxygen Delivery Nasal Cannula Oxygen Flow Rate 3 10/27/24 02:00 10/27/24 02:39 10/27/24 02:50 Temperature Pulse Rate 73 76 73 Respiratory Rate 20 20 Blood Pressure Pulse Oximetry Oxygen Delivery Oxygen Flow Rate 10/27/24 03:52 10/27/24 04:00 10/27/24 04:00 Temperature 37.0 C Pulse Rate 77 76 Respiratory Rate 20 Blood Pressure 100/48 L Pulse Oximetry 98 98 Oxygen Delivery Nasal Cannula Oxygen Flow Rate 3 10/27/24 06:00 10/27/24 08:22 10/27/24 08:35 Temperature Pulse Rate 79 78 74 Respiratory Rate 20 Blood Pressure Pulse Oximetry 94 Oxygen Delivery Nasal Cannula Oxygen Flow Rate 3 10/27/24 08:35 10/27/24 08:49 Temperature Pulse Rate 74 71 Respiratory Rate 20 20 Blood Pressure Pulse Oximetry Oxygen Delivery Oxygen Flow Rate Intake/Output Intake/Output: Intake & Output 10/24/24 10/25/24 10/26/24 10/27/24 23:59 23:59 23:59 23:59 Intake Total 100 2270 850 Output Total 0 1550 700 Balance 100 720 150 Meds/Results Medications: Active Medications Generic Name Dose Route Start Last Admin Trade Name Freq PRN Reason Stop Dose Admin Acetaminophen 650 mg 10/25/24 19:27 Acetaminophen 325 Mg Tablet PO Q4H PRN Mild Pain (1-3) or Fever Albuterol 2.5 mg 10/26/24 09:27 Albuterol Sulfate Neb 2.5 Mg/3 Ml Inh INHALATION Q4HRT PRN Shortness Of Breath Albuterol/Ipratropium 3 ml 10/26/24 14:00 10/27/24 08:33 Ipratropium 0.5 Mg/Albuterol Sulfate 2.5 Mg Ampul.Neb 3 Ml INHALATION 3 ml Q6HRT DAISY Administration Alprazolam 0.25 mg 10/26/24 04:32 Alprazolam (*Crx) 0.25 Mg Tablet PO DAILY PRN anxiety Aspirin 81 mg 10/26/24 18:00 10/26/24 17:31 Aspirin 81 Mg Enteric Tablet PO 81 mg QPM DAISY Administration Atorvastatin Calcium 40 mg 10/26/24 18:00 10/26/24 17:31 Atorvastatin 40 Mg Tablet PO 40 mg QPM DAISY Administration Benzonatate 200 mg 10/26/24 13:00 10/27/24 08:22 Benzonatate 100 Mg Capsule PO 200 mg TID DAISY Administration Budesonide 0.5 mg 10/26/24 20:00 10/27/24 08:32 Budesonide Respule Neb 0.5 Mg/2 Ml Amp INHALATION 0.5 mg Q12HRT DAISY Administration Calcium Carbonate 1,000 mg 10/26/24 09:00 10/27/24 08:22 Calcium/Vitamin D 500 Mg/5 Mcg (200 I.U.) Tablet PO 1,000 mg QAM DAISY Administration Carvedilol 25 mg 10/26/24 09:00 10/27/24 08:22 Carvedilol 25 Mg Tablet PO 25 mg Q12HR DAISY Administration Dextrose 12.5 gm 10/25/24 23:36 Dextrose 50% 25 Gm/50 Ml Syringe IV PUSH PRN PRN Hypoglycemia Protocol Duloxetine HCl 30 mg 10/26/24 09:00 10/27/24 08:22 Duloxetine Hcl 30 Mg Capsule.Dr PO 30 mg QAM DAISY Administration Enoxaparin Sodium 40 mg 10/26/24 09:00 10/27/24 08:23 Enoxaparin 40 Mg/0.4 Ml Syringe SUB-Q 40 mg DAILY DAISY Administration Glucagon 1 mg 10/25/24 23:36 Glucagon For Inj 1 Mg Vial IM PRN PRN Hypoglycemia Protocol Glucose 15 gm 10/25/24 23:36 Glucose Oral Gel 15 Gm Of Glucse In 37.5 Gm Tube PO PRN PRN Hypoglycemia Protocol Dextrose 1,000 mls @ 100 mls/hr 10/25/24 23:36 Dextrose 5% 1,000 Ml IVPB PRN PRN Hypoglycemia Protocol Ceftriaxone Sodium 1 gm in 50 mls @ 100 mls/hr 10/26/24 18:00 10/26/24 19:14 Rocephin 1 Gm/Ns 50 Ml IVPB Infused Q24H DAISY Infusion Azithromycin 500 mg in 250 mls @ 250 mls/hr 10/26/24 17:00 10/26/24 18:46 Zithromax IVPB Infused Q24H DAISY Infusion Insulin Aspart 2 - 5 units 10/26/24 08:00 10/27/24 08:23 Insulin Aspart (*Bkc) 100 Units/Ml SUB-Q Not Given TIDWM [facility] Protocol Insulin Aspart 1 - 2 units 10/26/24 21:00 10/26/24 21:39 Insulin Aspart (*Bkc) 100 Units/Ml SUB-Q Not Given HS [facility] Protocol Multivitamins/Calcium 1 tablet 10/26/24 09:00 10/27/24 08:22 Therapeutic Multivitamins/Minerals Tab (*Bkc) PO 1 tablet QAM DAISY Administration Ondansetron HCl 4 mg 10/25/24 19:27 Ondansetron Inj 4 Mg/2 Ml Vial IV PUSH Q4H PRN Nausea Oseltamivir Phosphate 75 mg 10/25/24 23:55 10/27/24 08:23 Oseltamivir Phosphate 75 Mg Capsule PO 10/30/24 23:54 75 mg Q12HR DAIYS Administration Perflutren Lipid Microsphere 0 ml 10/26/24 12:02 Perflutren Lipid Microspheres 1.5 Ml Vial Diluted To 10 Ml Total Volume IV PUSH 10/29/24 12:02 ONCE PRN adequate visualization Protocol Fluticasone/Salmeterol 2 puff 10/26/24 08:00 10/27/24 08:33 Fluticasone/Salmeterol 115-21 Mcg Inhaler 1 Puff INHALATION 2 puff Q12HRT DAISY Administration Radiology Results: ITS Impressions Chest X-Ray 10/25/24 13:34 Impression: 1: Small bilateral nodular densities not seen on prior examination. Follow-up CT chest with contrast recommended to exclude parenchymal nodules. 2: Borderline heart size with pulmonary vascular congestion. Chest CT 10/25/24 18:48 IMPRESSION: COPD Patchy right upper lobe infiltrate which may be due to pneumonia Cholelithiasis Labs Labs: Laboratory Results - last 24 hr 10/26/24 10/26/24 10/26/24 08:18 11:43 16:40 WBC RBC Hgb Hct MCV MCH MCHC RDW Plt Count MPV Immature Gran % (Auto) Neut % (Auto) Lymph % (Auto) [place] % (Auto) Eos % (Auto) Baso % (Auto) Lymph # (Auto) [place] # (Auto) Eos # (Auto) Baso # (Auto) Abs Immat Gran (auto) Absolute Neuts (auto) Absolute Nucleated RBC Nucleated RBC % Sodium Potassium Chloride Carbon Dioxide Anion Gap BUN Creatinine Estim Creat Clear Calc Estimated GFR Glucose POC Capillary Glucose 127 H 123 H 125 H Calcium Total Bilirubin AST ALT Alkaline Phosphatase Total Protein Albumin 10/26/24 10/27/24 10/27/24 20:18 03:54 07:45 WBC 8.3 RBC 5.02 Hgb 15.7 H Hct 49.4 H MCV 98.4 MCH 31.3 MCHC 31.8 L RDW 12.3 Plt Count 174 MPV 9.6 Immature Gran % (Auto) 0.4 Neut % (Auto) 67.5 Lymph % (Auto) 21.5 [place] % (Auto) 10.4 H Eos % (Auto) 0.1 Baso % (Auto) 0.1 L Lymph # (Auto) 1.78 [place] # (Auto) 0.9 H Eos # (Auto) 0.0 Baso # (Auto) 0.0 Abs Immat Gran (auto) 0.03 Absolute Neuts (auto) 5.6 Absolute Nucleated RBC 0.000 Nucleated RBC % 0.0 Sodium 136 L Potassium 4.7 Chloride 95 L Carbon Dioxide 39 H Anion Gap 2 L BUN 11 Creatinine 0.52 L Estim Creat Clear Calc 82 Estimated GFR > 60 Glucose 99 POC Capillary Glucose 121 H 103 Calcium 9.2 Total Bilirubin 0.5 AST 39 H ALT 55 H Alkaline Phosphatase 71 Total Protein 6.0 L Albumin 3.4 L Quality VTE Prophylaxis VTE prophylaxis: pharmacologic ordered
--- NOTE | 2024-10-27 13:12 | PC.NURSE ---
Addendum entered by Lisa Bolaños RN 10/27/24 13:36: Abby Bowling, daughter, updated with pt's condition and room change Original Note: This patient, Sherrie Topete, was transferred to [[id number] ] on 10/27/24 at 1312. Personal belongings sent with patient. Report given to [Emir Flores @ 1300 ]. Appropriate documentation sent with patient.
[2024-10-27 14:28] LABS: Glucose Point of Care 106 mg/dl (65-105)
[2024-10-27] MEDS: AZITHROMYCIN 500 MG/NS 250 ML 500 MG/250 ML BAG 250 MG IVPB (16:01)
[2024-10-27 16:28] LABS: Glucose Point of Care 97 mg/dl (65-105)
[2024-10-27] MEDS: ASPIRIN 81 MG ENTERIC TABLET PO (17:28)
[2024-10-27] MEDS: ATORVASTATIN 40 MG TABLET PO (17:28)
[2024-10-27 21:03] LABS: Glucose Point of Care 113 mg/dl (65-105)
[2024-10-28] VITALS (12 sets, daily range): BP systolic 115–146; BP diastolic 69–94; PULSE 71–77; RESP 16–22; TEMP 36.1–36.5; O2SAT 93–97
--- NOTE | 2024-10-28 | ECHO_ITS ---
Patient Info Name: Sherrie Topete Age: 74 years : 1950 Gender: Female Ht: 63 in Wt: 179 lbs BSA: 1.93 m2 HR: 74 bpm BP: 125 / 69 mmHg Heart Rhythm: Sinus Rhythm Technical Quality: Fair Exam Date: 10/28/2024 11:31 AM Exam Location: Echo Lab Patient Status: Inpatient Admit Date: 10/25/2024 Staff Ordering Physician: Zhao Escobedo MD (larissa/roxie) Flight Teacher: Radha Santamaria RDCS Attending Provider: Angeles Willard Referring Physician: Gregg OTTO; Exam Type: CA echo dop color flow w con Study Info Indications - elevated troponin Complete two-dimensional, color flow and Doppler transthoracic echocardiogram is performed with contrast to opacify the left ventricle and to improve the deliniation of the left ventricle endocardial borders. Contrast/Agitated Saline Contrast/Ag. Saline: Definity Amount: 2.00 ml Administered By: Radha Santamaria RDCS Existing IV Access: Yes IV Access Condition: patent with no signs of infiltration Summary 1. Left ventricular chamber dimension is normal. 2. Left ventricular systolic function is normal, estimated at 55-60%. 3. There is mildly increased left ventricular wall thickness. 4. The left ventricular diastolic function is grade I diastolic dysfunction. 5. Right ventricular systolic function is normal. 6. The interatrial septum is aneurysmal. 7. There is mild mitral valve regurgitation. 8. There is mild tricuspid valve regurgitation. Left Ventricle Left ventricular chamber dimension is normal. Left ventricular systolic function is normal, estimated at 55-60%. There is mildly increased left ventricular wall thickness. The left ventricular diastolic function is grade I diastolic dysfunction. Right Ventricle Right ventricular chamber dimension is normal. Right ventricular systolic function is normal. Left Atria Left atrial chamber dimension is normal. Right Atria Right atrial chamber dimension is normal. Atrial Septum The interatrial septum is aneurysmal. Aortic Valve The aortic valve is probable trileaflet. There is no aortic valve stenosis. There is trace aortic valve regurgitation. There is mild aortic valve calcification. Pulmonic Valve The pulmonic valve is not well visualized. There is trace pulmonic regurgitation. Mitral Valve There is mild mitral valve regurgitation. Tricuspid Valve There is mild tricuspid valve regurgitation. Pericardium/Pleural The pericardium appears epicardial fat pad. There is no pericardial effusion. Inferior Vena Cava Dilated inferior vena cava with >50% collapse upon inspiration consistent with elevated right atrial pressure, 8 mmHg. Aorta The aortic root size at the sinus of Valsalva is normal. Left Ventricular Outflow Tract Name Value Normal LVOT 2D LVOT Diameter 2.02 cm LVOT Doppler LVOT Peak Gradient 5 mmHg LVOT Mean Gradient 2 mmHg LVOT VTI 19.20 cm LVOT VTI/AV VTI Ratio 0.72 LVOT Stroke Volume 61.59 ml LVOT CO 4.06 l/min LVOT CI 2.10 L/min/m2 Pulmonic Valve Name Value Normal RVOT Doppler RVOT Peak Gradient 2 mmHg PV Doppler PV Peak Gradient 4 mmHg Mitral Valve Name Value Normal MV Doppler MV Decel Whitman 296.85 cm/s2 MV PHT 0 s MV Area (PHT) 3.86 cm2 4.00-5.00 MV Diastolic Function MV E Peak Velocity 58.39 cm/s MV A Peak Velocity 96.74 cm/s MV E/A 0.60 MV Decel Time 0 s MV Annular TDI MV E/e' (Septal) 11.08 <=8.00 MV E/e' (Lateral) 7.71 <=8.00 MV E/e' (Average) 9.40 Tricuspid Valve Name Value Normal TV Regurgitation Doppler TR Peak Velocity 242.04 cm/s TR Peak Gradient 21 mmHg Estimated PAP/RSVP RA Pressure 8 mmHg <=5 PA Systolic Pressure 31 mmHg <36 RV Systolic Pressure 31 mmHg <36 Aorta Name Value Normal Ascending Aorta Ao Root Diameter (MM) 2.98 cm Ao Root Diam Index (MM) 1.54 cm/m2 Aortic Valve Name Value Normal AV Doppler AV Peak Velocity 121.89 cm/s AV Peak Gradient 6 mmHg AV Mean Gradient 3 mmHg AV VTI 26.51 cm AV Area (Cont Eq VTI) 2.32 cm2 >=3.00 AV Area (Cont Eq Nickolas) 2.92 cm2 AV Regurgitation 2D LVOT Area 3.21 cm2 Ventricles Name Value Normal LV Dimensions 2D/MM IVS Diastolic Thickness (2D) 0.94 cm 0.60-1.00 LVID Diastole (2D) 5.19 cm 3.80-5.20 LVIW Diastolic Thickness (2D) 0.91 cm 0.60-0.90 LVID Systole (2D) 3.30 cm 2.20-3.50 LVOT Diameter 2.02 cm LV Mass (2D Cubed) 174.49 g 67.00-162.00 LV Mass Index (2D Cubed) 0.01 g/cm2 0.00-0.01 Relative Wall Thickness (2D) 0.35 LV Fractional Shortening/Ejection Fraction 2D/MM LV Fractional Shortening (2D) 36 % 27-45 LV EF (2D Teicholz) 66 % 54-74 LV Diastolic Volume (4C MOD) 128.41 ml LV EF (4C MOD) 74 % LV Diastolic Volume (2C MOD) 67.53 ml LV EF (2C MOD) 53 % LV Diastolic Volume (BP MOD) 98.42 ml 46.00-106.00 LV Diastolic Volume Index (BP MOD) 0.05 l/m2 0.03-0.06 LV Systolic Volume (BP MOD) 34.39 ml 14.00-42.00 LV Systolic Volume Index (BP MOD) 0.02 l/m2 0.01-0.02 LV EF (BP MOD) 65 % 54-74 LV Diastolic Length (4C) 8.48 cm LV Systolic Length (4C) 6.01 cm LV Stroke Volume (4C MOD) 94.55 ml Atria Name Value Normal LA Dimensions LA Dimension (MM) 4.38 cm 2.70-3.80 LA Volume (4C A-L) 45.40 ml LA Volume (BP A-L) 41.57 ml RA Dimensions RA Area (4C) 10.38 cm2 <=18.00 Report Signatures
--- NOTE | 2024-10-28 05:08 | PCRCNOTE ---
Patient refused 0200 updraft treatment due to not wanting to be awakened. Possibly consider making pt q6 while awake with prn overnight.
[2024-10-28] MEDS: ACETAMINOPHEN 325 MG TABLET 650 MG PO (05:32)
[2024-10-28 06:17] LABS: Basophils Percent Auto 0.2 % (0.2-1.2); Eosinophils Percent Auto 0.7 % (0-4.4); Hematocrit 50.4 % (37.0-47.0); Hemoglobin 16.1 g/dL (12.0-15.0); Immature Granulocyte Absolute 0.01 K/mm3 (0.00-0.031); Immature Granulocyte Percent A 0.2 % (0-0.5); Lymphocytes Absolute Auto 1.92 K/mm3 (0.9-3.2); Lymphocytes Percent Auto 33.6 % (18.3-44.2); Mean Corpuscular HGB Conc 31.9 g/dl (32-36); Mean Corpuscular Hemoglobin 31.6 pg (26-34); Mean Platelet Volume 9.4 fl (7.4-10.4); Monocytes Absolute Auto 0.7 K/mm3 (0.1-0.6); Monocytes Percent Auto 12.2 % (2.6-8.5); Neutrophils Percent Auto 53.1 % (45.5-73.1); Platelet Count Result 211 k/mm3 (150-375); Red Blood Count 5.09 M/mm3 (4.2-5.4); Red Cell Distribution Width 12.3 % (11.5-14.5); White Blood Count 5.7 K/mm3 (4.5-10.0)
[2024-10-28 06:33] LABS: Alanine Aminotransferase 59 U/L (6-35); Albumin Level 3.6 g/dL (3.5-5.1); Alkaline Phosphatase 64 U/L (38-126); Aspartate Amino Transferase 40 U/L (14-36); Bilirubin,Total 0.7 mg/dL (0.2-1.3); Blood Urea Nitrogen 10 mg/dL (7-17); Calcium 9.6 mg/dL (8.4-10.2); Carbon Dioxide > 40 mmol/L (22-30); Chloride 89 mmol/L (98-107); Estimated CRCL calculation 79 ml/min; Estimated Glomerular Filt Rate > 60; Glucose 99 mg/dL (65-110); Potassium 4.2 mmol/L (3.4-5.0); Sodium 135 mmol/L (137-145)
[2024-10-28 06:59] LABS: Platelet Estimate Adequate (Adequate); Schistocytes None Seen
[2024-10-28 07:55] LABS: Glucose Point of Care 108 mg/dl (65-105)
[2024-10-28] MEDS: IPRATROPIUM 0.5 MG/ALBUTEROL SULFATE 2.5 MG AMPUL.NEB 3 ML INHALATION ×3 (08:17→19:26)
[2024-10-28] MEDS: FLUTICASONE/SALMETEROL 115-21 MCG INHALER 1 PUFF 2 PUFF INHALATION ×2 (08:17→19:27)
[2024-10-28] MEDS: BUDESONIDE RESPULE NEB 0.5 MG/2 ML AMP INHALATION ×2 (08:17→19:26)
[2024-10-28] MEDS: carvediloL 25 MG TABLET PO ×2 (08:34→20:15)
[2024-10-28] MEDS: DULoxetine HCL 30 MG CAPSULE.DR PO (08:34)
[2024-10-28] MEDS: OSELTAMIVIR PHOSPHATE 75 MG CAPSULE PO ×2 (08:34→20:16)
[2024-10-28] MEDS: THERAPEUTIC MULTIVITAMINS/MINERALS TAB (*BKC) 1 TABLET PO (08:34)
[2024-10-28] MEDS: CALCIUM/VITAMIN D 500 MG/5 MCG (200 I.U.) TABLET 1000 MG PO (08:35)
[2024-10-28] MEDS: BENZONATATE 100 MG CAPSULE 200 MG PO ×3 (08:35→17:00)
[2024-10-28] MEDS: ENOXAPARIN 40 MG/0.4 ML SYRINGE SUB-Q (08:35)
--- NOTE | 2024-10-28 10:00 | PM.IMPN ---
Progress Note: A&P Assessment and Plan (1) Acute heart failure: Code(s): I50.9 - Heart failure, unspecified Status: Acute (2) Non-ST elevation RI (NSTEMI): Code(s): I21.4 - Non-ST elevation (NSTEMI) myocardial infarction Status: Acute (3) Elevated troponin: Code(s): R79.89 - Other specified abnormal findings of blood chemistry Status: Acute (4) Diabetes mellitus: Code(s): E11.9 - Type 2 diabetes mellitus without complications Status: Acute (5) COPD exacerbation: Code(s): J44.1 - Chronic obstructive pulmonary disease with (acute) exacerbation Status: Acute (6) Pneumonia of right upper lobe due to influenza A virus: Code(s): J11.00 - Influenza due to unidentified influenza virus with unspecified type of pneumonia Status: Acute Plan Acute respiratory failure with hypoxia and hypercapnia: Code(s): J96.01 - Acute respiratory failure with hypoxia Status: Acute Assessment and Plan: Resulting from influenza a infection, pneumonia COPD Continue bronchodilator Chronic patient 3 L oxygen Influenza A: Code(s): On Tamiflu since October 25 Pneumonia of right upper lobe due to influenza A virus: Code(s): J11.00 - Influenza due to unidentified influenza virus with unspecified type of pneumonia Status: Acute Assessment and Plan: Continue Tamiflu, azithromycin and ceftriaxone IV Chronic obstructive pulmonary disease: Code(s): J44.9 - Chronic obstructive pulmonary disease, unspecified Status: Chronic Assessment and Plan: COPD exacerbation due to pneumonia and influenza infection Continue treatment of current respiratory infection. Continue Symbicort, 2 puffs q.12 hours, continue DuoNeb scheduled q.6 hours, per Dr. Arauz recommendation from previous email, will hold iv steroid Patient still has wheezing, dyspnea worse with minimal exertion Non-ST elevation RI (NSTEMI): Code(s): I21.4 - Non-ST elevation (NSTEMI) myocardial infarction Status: Acute Elevated troponin, no chest pain, EKG shows no specific ST or T-wave changes Resulting from demand ischemia Appreciate cardiology's consultation Diabetes mellitus: Code(s): E11.9 - Type 2 diabetes mellitus without complications Status: Acute Assessment and Plan: 10/26/24: Glucose checks AC and HS. SSI Low Dose A1C is 6.5. Glucose a control in target range Electrolyte abnormality: Code(s): E87.8 - Other disorders of electrolyte and fluid balance, not elsewhere classified Status: Acute Assessment and Plan: 10/26/24: Subjective Date/time seen: 10/28/24 10:00 Interval history: I saw examined patient today. Patient feels better today, but still has shortness breath at rest, but denies chest pain, palpitation, abdomen pain, nausea vomiting diarrhea dysuria. now patient is on 3 L oxygen, patient has tachycardia tachypnea. Labs reviewed Exam Narrative: GENERAL: Ill-appearing in no acute distress. Well-nourished. - EYES: EOMI. Anicteric. - HENT: Moist mucous membranes. - LUNGS: Wheezing bilateral, decreased breath sound bilaterally, tachypnea - CARDIOVASCULAR: Regular rate and rhythm. No murmur. No JVD. - ABDOMEN: Soft, non-tender and non-distended. No palpable masses. - EXTREMITIES: No edema. Peripheral pulses 2+. Non-tender. - NEUROLOGIC: No focal neurological deficits. CN II-XII grossly intact. - PSYCHIATRIC: Awake, Alert and oriented x 3. Appropriate mood and affect. - SKIN: No rashes or lesions. Warm. - LYMPH: No cervical lymphadenopathy. Objective Data Vital Signs Vital Signs: Vital Signs - 24 hr 10/27/24 12:00 10/27/24 14:23 10/27/24 14:25 Temperature 98.6 F 97.8 F Pulse Rate 74 68 65 Respiratory Rate 26 H 22 H 20 Blood Pressure 122/69 119/70 Pulse Oximetry 93 96 Oxygen Delivery Oxygen Flow Rate 10/27/24 14:28 10/27/24 14:40 10/27/24 20:03 Temperature Pulse Rate 65 66 84 Respiratory Rate 20 20 20 Blood Pressure Pulse Oximetry 92 Oxygen Delivery Nasal Cannula Oxygen Flow Rate 3 10/27/24 20:06 10/27/24 20:22 10/27/24 21:03 Temperature Pulse Rate 84 77 80 Respiratory Rate 20 Blood Pressure Pulse Oximetry 92 Oxygen Delivery Nasal Cannula Oxygen Flow Rate 3 10/27/24 21:03 10/27/24 21:59 10/28/24 06:00 Temperature 97.3 F L 97.3 F L Pulse Rate 73 74 Respiratory Rate 22 H 22 H Blood Pressure 127/77 125/69 Pulse Oximetry 91 91 97 Oxygen Delivery Nasal Cannula Oxygen Flow Rate 3 10/28/24 08:18 10/28/24 08:18 10/28/24 08:33 Temperature Pulse Rate 77 73 Respiratory Rate 20 20 Blood Pressure Pulse Oximetry 93 Oxygen Delivery Nasal Cannula Oxygen Flow Rate 3 10/28/24 08:34 Temperature Pulse Rate 76 Respiratory Rate Blood Pressure Pulse Oximetry Oxygen Delivery Oxygen Flow Rate Intake/Output Intake/Output: Intake & Output 10/25/24 10/26/24 10/27/24 10/28/24 23:59 23:59 23:59 23:59 Intake Total 100 2270 3270 200 Output Total 0 1550 700 Balance 631 718 4526 200 Meds/Results Medications: Active Medications Generic Name Dose Route Start Last Admin Trade Name Freq PRN Reason Stop Dose Admin Acetaminophen 650 mg 10/25/24 19:27 10/28/24 05:32 Acetaminophen 325 Mg Tablet PO 650 mg Q4H PRN Administration Mild Pain (1-3) or Fever Albuterol 2.5 mg 10/26/24 09:27 Albuterol Sulfate Neb 2.5 Mg/3 Ml Inh INHALATION Q4HRT PRN Shortness Of Breath Albuterol/Ipratropium 3 ml 10/26/24 14:00 10/28/24 08:17 Ipratropium 0.5 Mg/Albuterol Sulfate 2.5 Mg Ampul.Neb 3 Ml INHALATION 3 ml Q6HRT DAISY Administration Alprazolam 0.25 mg 10/26/24 04:32 Alprazolam (*Crx) 0.25 Mg Tablet PO DAILY PRN anxiety Aspirin 81 mg 10/26/24 18:00 10/27/24 17:28 Aspirin 81 Mg Enteric Tablet PO 81 mg QPM DAISY Administration Atorvastatin Calcium 40 mg 10/26/24 18:00 10/27/24 17:28 Atorvastatin 40 Mg Tablet PO 40 mg QPM DAISY Administration Benzonatate 200 mg 10/26/24 13:00 10/28/24 08:35 Benzonatate 100 Mg Capsule PO 200 mg TID DAISY Administration Budesonide 0.5 mg 10/26/24 20:00 10/28/24 08:17 Budesonide Respule Neb 0.5 Mg/2 Ml Amp INHALATION 0.5 mg Q12HRT DAISY Administration Calcium Carbonate 1,000 mg 10/26/24 09:00 10/28/24 08:35 Calcium/Vitamin D 500 Mg/5 Mcg (200 I.U.) Tablet PO 1,000 mg QAM DAISY Administration Carvedilol 25 mg 10/26/24 09:00 10/28/24 08:34 Carvedilol 25 Mg Tablet PO 25 mg Q12HR DAISY Administration Dextrose 12.5 gm 10/25/24 23:36 Dextrose 50% 25 Gm/50 Ml Syringe IV PUSH PRN PRN Hypoglycemia Protocol Duloxetine HCl 30 mg 10/26/24 09:00 10/28/24 08:34 Duloxetine Hcl 30 Mg Capsule. PO 30 mg QAM DAISY Administration Enoxaparin Sodium 40 mg 10/26/24 09:00 10/28/24 08:35 Enoxaparin 40 Mg/0.4 Ml Syringe SUB-Q 40 mg DAILY DAISY Administration Glucagon 1 mg 10/25/24 23:36 Glucagon For Inj 1 Mg Vial IM PRN PRN Hypoglycemia Protocol Glucose 15 gm 10/25/24 23:36 Glucose Oral Gel 15 Gm Of Glucse In 37.5 Gm Tube PO PRN PRN Hypoglycemia Protocol Dextrose 1,000 mls @ 100 mls/hr 10/25/24 23:36 Dextrose 5% 1,000 Ml IVPB PRN PRN Hypoglycemia Protocol Ceftriaxone Sodium 1 gm in 50 mls @ 100 mls/hr 10/26/24 18:00 10/27/24 17:28 Rocephin 1 Gm/Ns 50 Ml IVPB 100 mls/hr Q24H DAISY Administration Azithromycin 500 mg in 250 mls @ 250 mls/hr 10/26/24 17:00 10/27/24 16:01 Zithromax IVPB 250 mls/hr Q24H DAISY Administration Insulin Aspart 2 - 5 units 10/26/24 08:00 10/28/24 07:57 Insulin Aspart (*Bkc) 100 Units/Ml SUB-Q Not Given TIDWM DAISY Protocol Insulin Aspart 1 - 2 units 10/26/24 21:00 10/27/24 21:05 Insulin Aspart (*Bkc) 100 Units/Ml SUB-Q Not Given HS [facility] Protocol Multivitamins/Calcium 1 tablet 10/26/24 09:00 10/28/24 08:34 Therapeutic Multivitamins/Minerals Tab (*Bkc) PO 1 tablet QAM DAISY Administration Ondansetron HCl 4 mg 10/25/24 19:27 Ondansetron Inj 4 Mg/2 Ml Vial IV PUSH Q4H PRN Nausea Oseltamivir Phosphate 75 mg 10/25/24 23:55 10/28/24 08:34 Oseltamivir Phosphate 75 Mg Capsule PO 10/30/24 23:54 75 mg Q12HR DAISY Administration Perflutren Lipid Microsphere 0 ml 10/26/24 12:02 Perflutren Lipid Microspheres 1.5 Ml Vial Diluted To 10 Ml Total Volume IV PUSH 10/29/24 12:02 ONCE PRN adequate visualization Protocol Fluticasone/Salmeterol 2 puff 10/26/24 08:00 10/28/24 08:17 Fluticasone/Salmeterol 115-21 Mcg Inhaler 1 Puff INHALATION 2 puff Q12HRT DAISY Administration Radiology Results: ITS Impressions Chest X-Ray 10/25/24 13:34 Impression: 1: Small bilateral nodular densities not seen on prior examination. Follow-up CT chest with contrast recommended to exclude parenchymal nodules. 2: Borderline heart size with pulmonary vascular congestion. Chest CT 10/25/24 18:48 IMPRESSION: COPD Patchy right upper lobe infiltrate which may be due to pneumonia Cholelithiasis Labs Labs: Laboratory Results - last 24 hr 10/27/24 10/27/24 10/27/24 11:22 16:15 20:55 WBC RBC Hgb Hct MCV MCH MCHC RDW Plt Count MPV Immature Gran % (Auto) Neut % (Auto) Lymph % (Auto) [place] % (Auto) Eos % (Auto) Baso % (Auto) Lymph # (Auto) [place] # (Auto) Eos # (Auto) Baso # (Auto) Abs Immat Gran (auto) Absolute Neuts (auto) Absolute Nucleated RBC Band Neutrophils % Nucleated RBC % Platelet Estimate Schistocytes Sodium Potassium Chloride Carbon Dioxide Anion Gap BUN Creatinine Estim Creat Clear Calc Estimated GFR Glucose POC Capillary Glucose 106 H 97 113 H Calcium Total Bilirubin AST ALT Alkaline Phosphatase Total Protein Albumin 10/28/24 10/28/24 06:01 07:43 WBC 5.7 RBC 5.09 Hgb 16.1 H Hct 50.4 H MCV 99.0 MCH 31.6 MCHC 31.9 L RDW 12.3 Plt Count 211 MPV 9.4 Immature Gran % (Auto) 0.2 Neut % (Auto) 53.1 Lymph % (Auto) 33.6 [place] % (Auto) 12.2 H Eos % (Auto) 0.7 Baso % (Auto) 0.2 Lymph # (Auto) 1.92 [place] # (Auto) 0.7 H Eos # (Auto) 0.0 Baso # (Auto) 0.0 Abs Immat Gran (auto) 0.01 Absolute Neuts (auto) 3.0 Absolute Nucleated RBC 0.000 Band Neutrophils % Not Reportable Nucleated RBC % 0.0 Platelet Estimate Adequate Schistocytes None seen Sodium 135 L Potassium 4.2 Chloride 89 L Carbon Dioxide > 40 H Anion Gap BUN 10 Creatinine 0.54 L Estim Creat Clear Calc 79 Estimated GFR > 60 Glucose 99 POC Capillary Glucose 108 H Calcium 9.6 Total Bilirubin 0.7 AST 40 H ALT 59 H Alkaline Phosphatase 64 Total Protein 7.0 Albumin 3.6
[2024-10-28] MEDS: PERFLUTREN LIPID MICROSPHERES 1.5 ML VIAL DILUTED TO 10 ML TOTAL VOLUME IV PUSH (12:03)
[2024-10-28 12:11] LABS: Glucose Point of Care 156 mg/dl (65-105)
--- NOTE | 2024-10-28 14:56 | IVDEFINITY ---
Prior to administration of IV Definity the patient was educated on the risks and benefits of the imaging enhancing agent including potential adverse side effects. The patient verbalized understanding. Allergies were verified. No exclusion criteria were identified and at least one of the following inclusion criteria were met: 1) physician request, 2) patient technically difficult to image (per the [place] [employer] guidelines of two or more segments not discernable within the apical view), or 3) questionable left ventricular function. ?
[2024-10-28] MEDS: AZITHROMYCIN 500 MG/NS 250 ML 500 MG/250 ML BAG 250 MG IVPB (16:59)
[2024-10-28 17:07] LABS: Glucose Point of Care 126 mg/dl (65-105)
[2024-10-28] MEDS: ATORVASTATIN 40 MG TABLET PO (18:12)
[2024-10-28] MEDS: ASPIRIN 81 MG ENTERIC TABLET PO (18:12)
[2024-10-28 22:56] LABS: Glucose Point of Care 116 mg/dl (65-105)
[2024-10-29] VITALS (14 sets, daily range): BP systolic 115–148; BP diastolic 54–83; PULSE 72–82; RESP 12–20; TEMP 36.6–37; O2SAT 87–100
[2024-10-29] MEDS: IPRATROPIUM 0.5 MG/ALBUTEROL SULFATE 2.5 MG AMPUL.NEB 3 ML INHALATION ×2 (02:50→19:53)
[2024-10-29 05:54] LABS: Basophils Percent Auto 0.4 % (0.2-1.2); Eosinophils Absolute Auto 0.1 K/mm3 (0-0.3); Eosinophils Percent Auto 0.9 % (0-4.4); Hematocrit 52.6 % (37.0-47.0); Hemoglobin 16.8 g/dL (12.0-15.0); Immature Granulocyte Absolute 0.02 K/mm3 (0.00-0.031); Immature Granulocyte Percent A 0.4 % (0-0.5); Lymphocytes Absolute Auto 1.94 K/mm3 (0.9-3.2); Lymphocytes Percent Auto 34.1 % (18.3-44.2); Mean Corpuscular HGB Conc 31.9 g/dl (32-36); Mean Corpuscular Hemoglobin 31.4 pg (26-34); Mean Corpuscular Volume 98.3 fl (80-100); Mean Platelet Volume 9.1 fl (7.4-10.4); Monocytes Absolute Auto 0.6 K/mm3 (0.1-0.6); Monocytes Percent Auto 11.1 % (2.6-8.5); Neutrophils Percent Auto 53.1 % (45.5-73.1); Platelet Count Result 227 k/mm3 (150-375); Red Blood Count 5.35 M/mm3 (4.2-5.4); Red Cell Distribution Width 11.9 % (11.5-14.5); White Blood Count 5.7 K/mm3 (4.5-10.0)
[2024-10-29 06:10] LABS: Alanine Aminotransferase 54 U/L (6-35); Albumin Level 3.5 g/dL (3.5-5.1); Alkaline Phosphatase 67 U/L (38-126); Aspartate Amino Transferase 33 U/L (14-36); Bilirubin,Total 0.8 mg/dL (0.2-1.3); Blood Urea Nitrogen 7 mg/dL (7-17); Calcium 9.4 mg/dL (8.4-10.2); Carbon Dioxide > 40 mmol/L (22-30); Chloride 92 mmol/L (98-107); Estimated CRCL calculation 89 ml/min; Estimated Glomerular Filt Rate > 60; Glucose 109 mg/dL (65-110); Potassium 4.2 mmol/L (3.4-5.0); Sodium 138 mmol/L (137-145)
[2024-10-29 06:46] LABS: Atypical Lymphocytes Present; Platelet Estimate Adequate (Adequate); Schistocytes None Seen
[2024-10-29 07:56] LABS: Glucose Point of Care 116 mg/dl (65-105)
[2024-10-29] MEDS: THERAPEUTIC MULTIVITAMINS/MINERALS TAB (*BKC) 1 TABLET PO (08:28)
[2024-10-29] MEDS: carvediloL 25 MG TABLET PO ×2 (08:28→20:09)
[2024-10-29] MEDS: CALCIUM/VITAMIN D 500 MG/5 MCG (200 I.U.) TABLET 1000 MG PO (08:28)
[2024-10-29] MEDS: OSELTAMIVIR PHOSPHATE 75 MG CAPSULE PO ×2 (08:28→20:07)
[2024-10-29] MEDS: DULoxetine HCL 30 MG CAPSULE.DR PO (08:28)
[2024-10-29] MEDS: BENZONATATE 100 MG CAPSULE 200 MG PO ×3 (08:28→16:53)
[2024-10-29] MEDS: ENOXAPARIN 40 MG/0.4 ML SYRINGE SUB-Q (08:31)
[2024-10-29 09:18] LABS: Magnesium 1.9 mg/dL (1.6-2.3)
[2024-10-29] MEDS: ACETAMINOPHEN 325 MG TABLET 650 MG PO (09:42)
[2024-10-29 11:29] LABS: Glucose Point of Care 165 mg/dl (65-105)
--- NOTE | 2024-10-29 12:18 | P.PNIM_ITS ---
Progress Note: A&P Assessment and Plan (1) Acute heart failure: Code(s): I50.9 - Heart failure, unspecified Status: Acute Assessment and Plan: * Carvedilol 25 mg PO q 12. (2) Non-ST elevation CA (NSTEMI): Code(s): I21.4 - Non-ST elevation (NSTEMI) myocardial infarction Status: Acute Assessment and Plan: * Elevated troponin, no chest pain, EKG shows no specific ST or T-wave changes * Resulting from demand ischemia * Appreciate cardiology's consultation (3) Elevated troponin: Code(s): R79.89 - Other specified abnormal findings of blood chemistry Status: Acute Assessment and Plan: * Elevated troponin, no chest pain, EKG shows no specific ST or T-wave changes * Resulting from demand ischemia * Appreciate cardiology's consultation (4) Diabetes mellitus: Code(s): E11.9 - Type 2 diabetes mellitus without complications Status: Acute Assessment and Plan: * Accuchecks, SSI, and hypoglycemic protocol. (5) COPD exacerbation: Code(s): J44.1 - Chronic obstructive pulmonary disease with (acute) exacerbation Status: Acute Assessment and Plan: * 02@ 2LNC with Sa02 94%. Chronically on 3 LNC. * COPD exacerbation due to pneumonia and influenza infection * Continue treatment of current respiratory infection. * Continue Symbicort, 2 puffs q.12 hours, continue DuoNeb scheduled q.6 hours, * per Dr. Arauz recommendation from previous email, will hold iv steroid (6) Pneumonia of right upper lobe due to influenza A virus: Code(s): J11.00 - Influenza due to unidentified influenza virus with unspecified type of pneumonia Status: Acute Assessment and Plan: * Influenza A positive. * Oseltamivir 75 mg PO q 12, Azithromycin, and Ceftriaxone. * Duoneb q 6. Plan Subjective Date/time seen: 10/29/24 12:18 Interval history: Patient reports that she has not had a bowel movement in 7 days, denies feeling constipated. Patient denies chest pain, palpitations, headache, dizziness, nausea, or vomiting. Review of Systems Review of Systems: All systems reviewed & are unremarkable except as noted in HPI and below Exam Const: General: comfortable and no acute distress Resp: Effort & Inspection: normal respiratory effort Auscultation: diminished lung sounds Cardio: Rate: regular rate Rhythm: regular rhythm GI: GI Palp: Yes Soft to palpation Auscultation: normal bowel sounds Neuro: Speech: normal speech Extrem: General: no pedal edema Psych: Mental Status: mental status grossly normal Affect: normal affect Objective Data Vital Signs Vital Signs: Vital Signs - 24 hr 10/28/24 13:53 10/28/24 14:00 10/28/24 14:06 Temperature 96.9 F L Pulse Rate 74 72 73 Respiratory Rate 20 16 20 Blood Pressure 146/94 H Pulse Oximetry 97 Oxygen Delivery Oxygen Flow Rate 10/28/24 19:27 10/28/24 19:27 10/28/24 20:00 Temperature Pulse Rate 77 Respiratory Rate 22 H Blood Pressure Pulse Oximetry 95 93 Oxygen Delivery Nasal Cannula Nasal Cannula Oxygen Flow Rate 3 3 10/28/24 20:15 10/28/24 21:45 10/29/24 02:50 Temperature 97.7 F Pulse Rate 74 71 73 Respiratory Rate 22 H 18 Blood Pressure 115/76 Pulse Oximetry 94 Oxygen Delivery Oxygen Flow Rate 10/29/24 02:55 10/29/24 05:47 10/29/24 08:00 Temperature 98.1 F Pulse Rate 75 82 Respiratory Rate 18 20 Blood Pressure 115/54 L Pulse Oximetry 96 100 Oxygen Delivery Nasal Cannula Oxygen Flow Rate 4 10/29/24 09:29 10/29/24 09:30 10/29/24 09:50 Temperature Pulse Rate Respiratory Rate Blood Pressure Pulse Oximetry 88 L 90 87 L Oxygen Delivery Nasal Cannula Nasal Cannula Room Air Oxygen Flow Rate 3 4 10/29/24 10:02 Temperature Pulse Rate Respiratory Rate Blood Pressure Pulse Oximetry 91 Oxygen Delivery Nasal Cannula Oxygen Flow Rate 2 Intake/Output Intake/Output: Intake & Output 10/26/24 10/27/24 10/28/24 10/29/24 23:59 23:59 23:59 23:59 Intake Total 2270 3570 913 218 Output Total 1550 700 Balance 720 2870 913 218 Meds/Results Medications: Active Medications Generic Name Dose Route Start Last Admin Trade Name Freq PRN Reason Stop Dose Admin Acetaminophen 650 mg 10/25/24 19:27 10/29/24 09:42 Acetaminophen 325 Mg Tablet PO 650 mg Q4H PRN Administration Mild Pain (1-3) or Fever Albuterol 2.5 mg 10/26/24 09:27 Albuterol Sulfate Neb 2.5 Mg/3 Ml Inh INHALATION Q4HRT PRN Shortness Of Breath Albuterol/Ipratropium 3 ml 10/26/24 14:00 10/29/24 09:29 Ipratropium 0.5 Mg/Albuterol Sulfate 2.5 Mg Ampul.Neb 3 Ml INHALATION Not Given Q6HRT DAISY Alprazolam 0.25 mg 10/26/24 04:32 Alprazolam (*Crx) 0.25 Mg Tablet PO DAILY PRN anxiety Aspirin 81 mg 10/26/24 18:00 10/28/24 18:12 Aspirin 81 Mg Enteric Tablet PO 81 mg QPM DAISY Administration Atorvastatin Calcium 40 mg 10/26/24 18:00 10/28/24 18:12 Atorvastatin 40 Mg Tablet PO 40 mg QPM DAISY Administration Benzonatate 200 mg 10/26/24 13:00 10/29/24 12:10 Benzonatate 100 Mg Capsule PO 200 mg TID DAISY Administration Budesonide 0.5 mg 10/26/24 20:00 10/29/24 09:28 Budesonide Respule Neb 0.5 Mg/2 Ml Amp INHALATION Not Given Q12HRT [facility] Calcium Carbonate 1,000 mg 10/26/24 09:00 10/29/24 08:28 Calcium/Vitamin D 500 Mg/5 Mcg (200 I.U.) Tablet PO 1,000 mg QAM DAISY Administration Carvedilol 25 mg 10/26/24 09:00 10/29/24 08:28 Carvedilol 25 Mg Tablet PO 25 mg Q12HR DAISY Administration Dextrose 12.5 gm 10/25/24 23:36 Dextrose 50% 25 Gm/50 Ml Syringe IV PUSH PRN PRN Hypoglycemia Protocol Duloxetine HCl 30 mg 10/26/24 09:00 10/29/24 08:28 Duloxetine Hcl 30 Mg Capsule.Dr PO 30 mg QAM DAISY Administration Enoxaparin Sodium 40 mg 10/26/24 09:00 10/29/24 08:31 Enoxaparin 40 Mg/0.4 Ml Syringe SUB-Q 40 mg DAILY DAISY Administration Glucagon 1 mg 10/25/24 23:36 Glucagon For Inj 1 Mg Vial IM PRN PRN Hypoglycemia Protocol Glucose 15 gm 10/25/24 23:36 Glucose Oral Gel 15 Gm Of Glucse In 37.5 Gm Tube PO PRN PRN Hypoglycemia Protocol Dextrose 1,000 mls @ 100 mls/hr 10/25/24 23:36 Dextrose 5% 1,000 Ml IVPB PRN PRN Hypoglycemia Protocol Ceftriaxone Sodium 1 gm in 50 mls @ 100 mls/hr 10/26/24 18:00 10/28/24 18:12 Rocephin 1 Gm/Ns 50 Ml IVPB 100 mls/hr Q24H DAISY Administration Azithromycin 500 mg in 250 mls @ 250 mls/hr 10/26/24 17:00 10/28/24 16:59 Zithromax IVPB 10/29/24 23:59 250 mls/hr Q24H DAISY Administration Insulin Aspart 2 - 5 units 10/26/24 08:00 10/29/24 11:30 Insulin Aspart (*Bkc) 100 Units/Ml SUB-Q Not Given TIDWM DAISY Protocol Insulin Aspart 1 - 2 units 10/26/24 21:00 10/28/24 22:26 Insulin Aspart (*Bkc) 100 Units/Ml SUB-Q Not Given HS DAISY Protocol Multivitamins/Calcium 1 tablet 10/26/24 09:00 10/29/24 08:28 Therapeutic Multivitamins/Minerals Tab (*Bkc) PO 1 tablet QAM DAISY Administration Ondansetron HCl 4 mg 10/25/24 19:27 Ondansetron Inj 4 Mg/2 Ml Vial IV PUSH Q4H PRN Nausea Oseltamivir Phosphate 75 mg 10/25/24 23:55 10/29/24 08:28 Oseltamivir Phosphate 75 Mg Capsule PO 10/30/24 23:54 75 mg Q12HR DAISY Administration Fluticasone/Salmeterol 2 puff 10/26/24 08:00 10/29/24 09:28 Fluticasone/Salmeterol 115-21 Mcg Inhaler 1 Puff INHALATION Not Given Q12HRT [facility] Radiology Results: ITS Impressions Chest X-Ray 10/25/24 13:34 Impression: 1: Small bilateral nodular densities not seen on prior examination. Follow-up CT chest with contrast recommended to exclude parenchymal nodules. 2: Borderline heart size with pulmonary vascular congestion. Chest CT 10/25/24 18:48 IMPRESSION: COPD Patchy right upper lobe infiltrate which may be due to pneumonia Cholelithiasis Labs Labs: Laboratory Results - last 24 hr 10/28/24 10/28/24 10/29/24 16:48 21:09 05:38 WBC RBC Hgb Hct MCV MCH MCHC RDW Plt Count MPV Immature Gran % (Auto) Neut % (Auto) Lymph % (Auto) [place] % (Auto) Eos % (Auto) Baso % (Auto) Lymph # (Auto) [place] # (Auto) Eos # (Auto) Baso # (Auto) Abs Immat Gran (auto) Absolute Neuts (auto) Absolute Nucleated RBC Band Neutrophils % Nucleated RBC % Atypical Lymphocytes Platelet Estimate Schistocytes Sodium Potassium Chloride Carbon Dioxide Anion Gap BUN Creatinine Estim Creat Clear Calc Estimated GFR Glucose POC Capillary Glucose 126 H 116 H Calcium Magnesium 1.9 Total Bilirubin AST ALT Alkaline Phosphatase Total Protein Albumin 10/29/24 10/29/24 10/29/24 05:41 07:40 11:24 WBC 5.7 RBC 5.35 Hgb 16.8 H Hct 52.6 H MCV 98.3 MCH 31.4 MCHC 31.9 L RDW 11.9 Plt Count 227 MPV 9.1 Immature Gran % (Auto) 0.4 Neut % (Auto) 53.1 Lymph % (Auto) 34.1 [place] % (Auto) 11.1 H Eos % (Auto) 0.9 Baso % (Auto) 0.4 Lymph # (Auto) 1.94 [place] # (Auto) 0.6 Eos # (Auto) 0.1 Baso # (Auto) 0.0 Abs Immat Gran (auto) 0.02 Absolute Neuts (auto) 3.0 Absolute Nucleated RBC 0.000 Band Neutrophils % Not Reportable Nucleated RBC % 0.0 Atypical Lymphocytes Present Platelet Estimate Adequate Schistocytes None seen Sodium 138 Potassium 4.2 Chloride 92 L Carbon Dioxide > 40 H Anion Gap BUN 7 Creatinine 0.47 L Estim Creat Clear Calc 89 Estimated GFR > 60 Glucose 109 POC Capillary Glucose 116 H 165 H Calcium 9.4 Magnesium Total Bilirubin 0.8 AST 33 ALT 54 H Alkaline Phosphatase 67 Total Protein 7.0 Albumin 3.5 Quality VTE Prophylaxis VTE prophylaxis: pharmacologic ordered
[2024-10-29] MEDS: polyethylene glycoL 3350 17 GM POWD.PACK PO (12:33)
[2024-10-29] MEDS: AZITHROMYCIN 500 MG/NS 250 ML 500 MG/250 ML BAG 250 MG IVPB (15:54)
[2024-10-29] MEDS: ASPIRIN 81 MG ENTERIC TABLET PO (16:53)
[2024-10-29] MEDS: ATORVASTATIN 40 MG TABLET PO (16:53)
[2024-10-29 17:17] LABS: Glucose Point of Care 170 mg/dl (65-105)
[2024-10-29] MEDS: FLUTICASONE/SALMETEROL 115-21 MCG INHALER 1 PUFF 2 PUFF INHALATION (20:01)
[2024-10-29] MEDS: ALPRAZolam (*CRX) 0.25 MG TABLET PO (20:08)
[2024-10-29 20:51] LABS: Glucose Point of Care 101 mg/dl (65-105)
[2024-10-30] VITALS (14 sets, daily range): BP systolic 124–138; BP diastolic 68–74; PULSE 67–86; RESP 14–20; TEMP 36.2–36.4; O2SAT 92–95
[2024-10-30] MEDS: IPRATROPIUM 0.5 MG/ALBUTEROL SULFATE 2.5 MG AMPUL.NEB 3 ML INHALATION ×4 (01:55→19:58)
[2024-10-30 06:03] LABS: Basophils Percent Auto 0.6 % (0.2-1.2); Eosinophils Absolute Auto 0.1 K/mm3 (0-0.3); Eosinophils Percent Auto 2.1 % (0-4.4); Hematocrit 53.4 % (37.0-47.0); Hemoglobin 16.9 g/dL (12.0-15.0); Immature Granulocyte Absolute 0.03 K/mm3 (0.00-0.031); Immature Granulocyte Percent A 0.6 % (0-0.5); Lymphocytes Absolute Auto 1.92 K/mm3 (0.9-3.2); Lymphocytes Percent Auto 36.2 % (18.3-44.2); Mean Corpuscular HGB Conc 31.6 g/dl (32-36); Mean Corpuscular Hemoglobin 31.1 pg (26-34); Mean Corpuscular Volume 98.2 fl (80-100); Mean Platelet Volume 9.1 fl (7.4-10.4); Monocytes Absolute Auto 0.7 K/mm3 (0.1-0.6); Monocytes Percent Auto 12.6 % (2.6-8.5); Neutrophils Absolute Auto 2.5 K/mm3 (1.3-6.7); Neutrophils Percent Auto 47.9 % (45.5-73.1); Platelet Count Result 251 k/mm3 (150-375); Red Blood Count 5.44 M/mm3 (4.2-5.4); White Blood Count 5.3 K/mm3 (4.5-10.0)
[2024-10-30 06:19] LABS: Alanine Aminotransferase 56 U/L (6-35); Albumin Level 3.5 g/dL (3.5-5.1); Alkaline Phosphatase 64 U/L (38-126); Aspartate Amino Transferase 35 U/L (14-36); Bilirubin,Total 0.7 mg/dL (0.2-1.3); Blood Urea Nitrogen 7 mg/dL (7-17); Calcium 9.4 mg/dL (8.4-10.2); Carbon Dioxide > 40 mmol/L (22-30); Chloride 93 mmol/L (98-107); Estimated CRCL calculation 92 ml/min; Estimated Glomerular Filt Rate > 60; Glucose 111 mg/dL (65-110); Magnesium 2.1 mg/dL (1.6-2.3); Potassium 4.2 mmol/L (3.4-5.0); Sodium 139 mmol/L (137-145)
[2024-10-30 07:47] LABS: Glucose Point of Care 120 mg/dl (65-105)
[2024-10-30] MEDS: BUDESONIDE RESPULE NEB 0.5 MG/2 ML AMP INHALATION (08:36)
[2024-10-30] MEDS: polyethylene glycoL 3350 17 GM POWD.PACK PO (08:39)
[2024-10-30] MEDS: OSELTAMIVIR PHOSPHATE 75 MG CAPSULE PO ×2 (08:39→19:56)
[2024-10-30] MEDS: BENZONATATE 100 MG CAPSULE 200 MG PO ×3 (08:39→17:08)
[2024-10-30] MEDS: CALCIUM/VITAMIN D 500 MG/5 MCG (200 I.U.) TABLET 1000 MG PO (08:39)
[2024-10-30] MEDS: carvediloL 25 MG TABLET PO ×2 (08:39→19:56)
[2024-10-30] MEDS: THERAPEUTIC MULTIVITAMINS/MINERALS TAB (*BKC) 1 TABLET PO (08:39)
[2024-10-30] MEDS: DULoxetine HCL 30 MG CAPSULE.DR PO (08:39)
[2024-10-30] MEDS: ENOXAPARIN 40 MG/0.4 ML SYRINGE SUB-Q (08:40)
[2024-10-30] MEDS: FLUTICASONE/SALMETEROL 115-21 MCG INHALER 1 PUFF 2 PUFF INHALATION ×2 (08:40→20:04)
[2024-10-30] MEDS: ACETAMINOPHEN 325 MG TABLET 650 MG PO (09:30)
[2024-10-30 11:36] LABS: Glucose Point of Care 211 mg/dl (65-105)
[2024-10-30] MEDS: INSULIN ASPART (*BKC) 100 UNITS/ML SUB-Q ×2 (11:56→17:09)
--- NOTE | 2024-10-30 11:58 | P.PNIM_ITS ---
Progress Note: A&P Assessment and Plan (1) Acute heart failure: Code(s): I50.9 - Heart failure, unspecified Status: Acute Assessment and Plan: * Carvedilol 25 mg PO q 12. (2) Non-ST elevation CA (NSTEMI): Code(s): I21.4 - Non-ST elevation (NSTEMI) myocardial infarction Status: Acute Assessment and Plan: * Elevated troponin, no chest pain, EKG shows no specific ST or T-wave changes * Resulting from demand ischemia * Appreciate cardiology's consultation (3) Elevated troponin: Code(s): R79.89 - Other specified abnormal findings of blood chemistry Status: Acute Assessment and Plan: * Elevated troponin, no chest pain, EKG shows no specific ST or T-wave changes * Resulting from demand ischemia * Appreciate cardiology's consultation (4) Diabetes mellitus: Code(s): E11.9 - Type 2 diabetes mellitus without complications Status: Acute Assessment and Plan: * Accuchecks, SSI, and hypoglycemic protocol. (5) COPD exacerbation: Code(s): J44.1 - Chronic obstructive pulmonary disease with (acute) exacerbation Status: Acute Assessment and Plan: * 02@ 3LNC with Sa02 95%. Chronically on 3 LNC. * COPD exacerbation due to pneumonia and influenza infection * Continue treatment of current respiratory infection. * Continue Symbicort, 2 puffs q12 hours, continue DuoNeb scheduled q.6 hours, * per Dr. Arauz recommendation from previous email, will hold iv steroid (6) Pneumonia of right upper lobe due to influenza A virus: Code(s): J11.00 - Influenza due to unidentified influenza virus with unspecified type of pneumonia Status: Acute Assessment and Plan: * Influenza A positive. * Oseltamivir 75 mg PO q 12 and Ceftriaxone. Completed Azithromycin. * Duoneb q 6. Plan Subjective Date/time seen: 10/30/24 11:58 Interval history: Patient had a bowel movement today. Patient denies chest pain, palpitations, headache, dizziness, nausea, or vomiting. Review of Systems Review of Systems: All systems reviewed & are unremarkable except as noted in HPI and below Exam Const: General: comfortable and no acute distress Resp: Effort & Inspection: normal respiratory effort Auscultation: wheezes expiratory wheezes and diminished lung sounds Cardio: Rate: regular rate Rhythm: regular rhythm GI: GI Palp: Yes Soft to palpation Auscultation: normal bowel sounds Neuro: Speech: normal speech Extrem: General: no pedal edema Psych: Mental Status: mental status grossly normal Affect: normal affect Objective Data Vital Signs Vital Signs: Vital Signs - 24 hr 10/29/24 14:00 10/29/24 14:43 10/29/24 16:05 Temperature 98.6 F Pulse Rate 72 Respiratory Rate 19 Blood Pressure 131/77 Pulse Oximetry 94 Oxygen Delivery Room Air Nasal Cannula Oxygen Flow Rate 2 Fraction of Inspired Oxygen 10/29/24 19:53 10/29/24 19:53 10/29/24 20:00 Temperature Pulse Rate 75 Respiratory Rate 20 Blood Pressure Pulse Oximetry 94 100 Oxygen Delivery Nasal Cannula Nasal Cannula Oxygen Flow Rate 3 3 Fraction of Inspired Oxygen 32 10/29/24 20:09 10/29/24 20:13 10/29/24 21:12 Temperature 97.8 F Pulse Rate 72 78 76 Respiratory Rate 20 12 Blood Pressure 148/83 H Pulse Oximetry 100 Oxygen Delivery Oxygen Flow Rate Fraction of Inspired Oxygen 10/30/24 01:55 10/30/24 02:02 10/30/24 05:37 Temperature 97.1 F L Pulse Rate 74 76 77 Respiratory Rate 18 18 14 Blood Pressure 138/73 Pulse Oximetry 92 Oxygen Delivery Oxygen Flow Rate Fraction of Inspired Oxygen 10/30/24 08:00 10/30/24 08:00 10/30/24 08:37 Temperature 97.5 F L Pulse Rate 72 80 Respiratory Rate 14 20 Blood Pressure 128/68 Pulse Oximetry 93 93 95 Oxygen Delivery Nasal Cannula Nasal Cannula Oxygen Flow Rate 2 3 Fraction of Inspired Oxygen 10/30/24 08:37 10/30/24 08:49 Temperature Pulse Rate 80 78 Respiratory Rate 20 20 Blood Pressure Pulse Oximetry Oxygen Delivery Oxygen Flow Rate Fraction of Inspired Oxygen Intake/Output Intake/Output: Intake & Output 10/27/24 10/28/24 10/29/24 10/30/24 23:59 23:59 23:59 23:59 Intake Total 3570 1213 998 940 Output Total 700 Balance 2870 1213 998 940 Meds/Results Medications: Active Medications Generic Name Dose Route Start Last Admin Trade Name Freq PRN Reason Stop Dose Admin Acetaminophen 650 mg 10/25/24 19:27 10/30/24 09:30 Acetaminophen 325 Mg Tablet PO 650 mg Q4H PRN Administration Mild Pain (1-3) or Fever Albuterol 2.5 mg 10/26/24 09:27 Albuterol Sulfate Neb 2.5 Mg/3 Ml Inh INHALATION Q4HRT PRN Shortness Of Breath Albuterol/Ipratropium 3 ml 10/26/24 14:00 10/30/24 08:36 Ipratropium 0.5 Mg/Albuterol Sulfate 2.5 Mg Ampul.Neb 3 Ml INHALATION 3 ml Q6HRT DAISY Administration Alprazolam 0.25 mg 10/26/24 04:32 10/29/24 20:08 Alprazolam (*Crx) 0.25 Mg Tablet PO 0.25 mg DAILY PRN Administration anxiety Aspirin 81 mg 10/26/24 18:00 10/29/24 16:53 Aspirin 81 Mg Enteric Tablet PO 81 mg QPM DAISY Administration Atorvastatin Calcium 40 mg 10/26/24 18:00 10/29/24 16:53 Atorvastatin 40 Mg Tablet PO 40 mg QPM DAISY Administration Benzonatate 200 mg 10/26/24 13:00 10/30/24 08:39 Benzonatate 100 Mg Capsule PO 200 mg TID DAISY Administration Bisacodyl 10 mg 10/30/24 11:14 Bisacodyl 10 Mg Suppository RECTAL QAM PRN Constipation Budesonide 0.5 mg 10/26/24 20:00 10/30/24 08:36 Budesonide Respule Neb 0.5 Mg/2 Ml Amp INHALATION 0.5 mg Q12HRT DAISY Administration Calcium Carbonate 1,000 mg 10/26/24 09:00 10/30/24 08:39 Calcium/Vitamin D 500 Mg/5 Mcg (200 I.U.) Tablet PO 1,000 mg QAM DAISY Administration Carvedilol 25 mg 10/26/24 09:00 10/30/24 08:39 Carvedilol 25 Mg Tablet PO 25 mg Q12HR DAISY Administration Dextrose 12.5 gm 10/25/24 23:36 Dextrose 50% 25 Gm/50 Ml Syringe IV PUSH PRN PRN Hypoglycemia Protocol Duloxetine HCl 30 mg 10/26/24 09:00 10/30/24 08:39 Duloxetine Hcl 30 Mg Capsule.Dr PO 30 mg QAM DAISY Administration Enoxaparin Sodium 40 mg 10/26/24 09:00 10/30/24 08:40 Enoxaparin 40 Mg/0.4 Ml Syringe SUB-Q 40 mg DAILY DAISY Administration Glucagon 1 mg 10/25/24 23:36 Glucagon For Inj 1 Mg Vial IM PRN PRN Hypoglycemia Protocol Glucose 15 gm 10/25/24 23:36 Glucose Oral Gel 15 Gm Of Glucse In 37.5 Gm Tube PO PRN PRN Hypoglycemia Protocol Dextrose 1,000 mls @ 100 mls/hr 10/25/24 23:36 Dextrose 5% 1,000 Ml IVPB PRN PRN Hypoglycemia Protocol Ceftriaxone Sodium 1 gm in 50 mls @ 100 mls/hr 10/26/24 18:00 10/29/24 17:23 Rocephin 1 Gm/Ns 50 Ml IVPB Infused Q24H DAISY Infusion Insulin Aspart 2 - 5 units 10/26/24 08:00 10/30/24 11:56 Insulin Aspart (*Bkc) 100 Units/Ml SUB-Q 2 units TIDWM DAISY Administration Protocol Insulin Aspart 1 - 2 units 10/26/24 21:00 10/29/24 20:09 Insulin Aspart (*Bkc) 100 Units/Ml SUB-Q Not Given HS DAISY Protocol Multivitamins/Calcium 1 tablet 10/26/24 09:00 10/30/24 08:39 Therapeutic Multivitamins/Minerals Tab (*Bkc) PO 1 tablet QAM DAISY Administration Ondansetron HCl 4 mg 10/25/24 19:27 Ondansetron Inj 4 Mg/2 Ml Vial IV PUSH Q4H PRN Nausea Oseltamivir Phosphate 75 mg 10/25/24 23:55 10/30/24 08:39 Oseltamivir Phosphate 75 Mg Capsule PO 10/30/24 23:54 75 mg Q12HR DAISY Administration Polyethylene Glycol 17 gm 10/29/24 12:20 10/30/24 08:39 Polyethylene Glycol 3350 17 Gm Powd.Pack PO 17 gm QAM DAISY Administration Fluticasone/Salmeterol 2 puff 10/26/24 08:00 10/30/24 08:40 Fluticasone/Salmeterol 115-21 Mcg Inhaler 1 Puff INHALATION 2 puff Q12HRT DAISY Administration Radiology Results: ITS Impressions Chest X-Ray 10/25/24 13:34 Impression: 1: Small bilateral nodular densities not seen on prior examination. Follow-up CT chest with contrast recommended to exclude parenchymal nodules. 2: Borderline heart size with pulmonary vascular congestion. Chest CT 10/25/24 18:48 IMPRESSION: COPD Patchy right upper lobe infiltrate which may be due to pneumonia Cholelithiasis Labs Labs: Laboratory Results - last 24 hr 10/29/24 10/29/24 10/30/24 16:51 20:06 05:43 WBC 5.3 RBC 5.44 H Hgb 16.9 H Hct 53.4 H MCV 98.2 MCH 31.1 MCHC 31.6 L RDW 12.0 Plt Count 251 MPV 9.1 Immature Gran % (Auto) 0.6 H Neut % (Auto) 47.9 Lymph % (Auto) 36.2 [place] % (Auto) 12.6 H Eos % (Auto) 2.1 Baso % (Auto) 0.6 Lymph # (Auto) 1.92 [place] # (Auto) 0.7 H Eos # (Auto) 0.1 Baso # (Auto) 0.0 Abs Immat Gran (auto) 0.03 Absolute Neuts (auto) 2.5 Absolute Nucleated RBC 0.000 Nucleated RBC % 0.0 Sodium 139 Potassium 4.2 Chloride 93 L Carbon Dioxide > 40 H Anion Gap BUN 7 Creatinine 0.46 L Estim Creat Clear Calc 92 Estimated GFR > 60 Glucose 111 H POC Capillary Glucose 170 H 101 Calcium 9.4 Magnesium 2.1 Total Bilirubin 0.7 AST 35 ALT 56 H Alkaline Phosphatase 64 Total Protein 7.0 Albumin 3.5 10/30/24 10/30/24 07:44 11:29 WBC RBC Hgb Hct MCV MCH MCHC RDW Plt Count MPV Immature Gran % (Auto) Neut % (Auto) Lymph % (Auto) [place] % (Auto) Eos % (Auto) Baso % (Auto) Lymph # (Auto) [place] # (Auto) Eos # (Auto) Baso # (Auto) Abs Immat Gran (auto) Absolute Neuts (auto) Absolute Nucleated RBC Nucleated RBC % Sodium Potassium Chloride Carbon Dioxide Anion Gap BUN Creatinine Estim Creat Clear Calc Estimated GFR Glucose POC Capillary Glucose 120 H 211 H Calcium Magnesium Total Bilirubin AST ALT Alkaline Phosphatase Total Protein Albumin Quality VTE Prophylaxis VTE prophylaxis: pharmacologic ordered
[2024-10-30 16:43] LABS: Glucose Point of Care 203 mg/dl (65-105)
[2024-10-30] MEDS: ASPIRIN 81 MG ENTERIC TABLET PO (17:08)
[2024-10-30] MEDS: ATORVASTATIN 40 MG TABLET PO (17:09)
[2024-10-30] MEDS: ALPRAZolam (*CRX) 0.25 MG TABLET PO (19:56)
[2024-10-30 20:31] LABS: Glucose Point of Care 116 mg/dl (65-105)
[2024-10-31] VITALS (14 sets, daily range): BP systolic 118–122; BP diastolic 60–75; PULSE 72–93; RESP 14–20; TEMP 36.3–36.6; O2SAT 86–96
[2024-10-31] MEDS: IPRATROPIUM 0.5 MG/ALBUTEROL SULFATE 2.5 MG AMPUL.NEB 3 ML INHALATION ×3 (01:58→14:20)
[2024-10-31 05:27] LABS: Basophils Percent Auto 0.5 % (0.2-1.2); Eosinophils Absolute Auto 0.2 K/mm3 (0-0.3); Eosinophils Percent Auto 3.1 % (0-4.4); Hematocrit 52.8 % (37.0-47.0); Hemoglobin 16.8 g/dL (12.0-15.0); Immature Granulocyte Absolute 0.03 K/mm3 (0.00-0.031); Immature Granulocyte Percent A 0.4 % (0-0.5); Lymphocytes Absolute Auto 2.19 K/mm3 (0.9-3.2); Lymphocytes Percent Auto 29.8 % (18.3-44.2); Mean Corpuscular HGB Conc 31.8 g/dl (32-36); Mean Corpuscular Hemoglobin 30.9 pg (26-34); Mean Corpuscular Volume 97.2 fl (80-100); Mean Platelet Volume 8.9 fl (7.4-10.4); Monocytes Absolute Auto 0.9 K/mm3 (0.1-0.6); Monocytes Percent Auto 12.3 % (2.6-8.5); Neutrophils Percent Auto 53.9 % (45.5-73.1); Platelet Count Result 262 k/mm3 (150-375); Red Blood Count 5.43 M/mm3 (4.2-5.4); White Blood Count 7.3 K/mm3 (4.5-10.0)
[2024-10-31 05:38] LABS: Alanine Aminotransferase 51 U/L (6-35); Albumin Level 3.6 g/dL (3.5-5.1); Alkaline Phosphatase 63 U/L (38-126); Aspartate Amino Transferase 33 U/L (14-36); Bilirubin,Total 0.8 mg/dL (0.2-1.3); Blood Urea Nitrogen 11 mg/dL (7-17); Calcium 9.6 mg/dL (8.4-10.2); Carbon Dioxide > 40 mmol/L (22-30); Chloride 92 mmol/L (98-107); Estimated CRCL calculation 77 ml/min; Estimated Glomerular Filt Rate > 60; Glucose 118 mg/dL (65-110); Potassium 4.3 mmol/L (3.4-5.0); Sodium 137 mmol/L (137-145)
[2024-10-31 08:02] LABS: Glucose Point of Care 121 mg/dl (65-105)
[2024-10-31] MEDS: DULoxetine HCL 30 MG CAPSULE.DR PO (08:10)
[2024-10-31] MEDS: THERAPEUTIC MULTIVITAMINS/MINERALS TAB (*BKC) 1 TABLET PO (08:10)
[2024-10-31] MEDS: ENOXAPARIN 40 MG/0.4 ML SYRINGE SUB-Q (08:10)
[2024-10-31] MEDS: BENZONATATE 100 MG CAPSULE 200 MG PO ×2 (08:10→13:42)
[2024-10-31] MEDS: polyethylene glycoL 3350 17 GM POWD.PACK PO (08:10)
[2024-10-31] MEDS: ACETAMINOPHEN 325 MG TABLET 650 MG PO (08:10)
[2024-10-31] MEDS: carvediloL 25 MG TABLET PO (08:10)
[2024-10-31] MEDS: CALCIUM/VITAMIN D 500 MG/5 MCG (200 I.U.) TABLET 1000 MG PO (08:10)
[2024-10-31] MEDS: FLUTICASONE/SALMETEROL 115-21 MCG INHALER 1 PUFF 2 PUFF INHALATION (08:53)
--- NOTE | 2024-10-31 09:13 | PCNWS ---
Weekly nutritional screen. Patient is tolerating current heart healthy diet with adequate intake 75-100%. No weight loss reported. No nutritional recommendations at this time.
--- NOTE | 2024-10-31 10:57 | P.PNIM_ITS ---
Subjective Date/time seen: 10/31/24 10:57 Review of Systems Review of Systems: All systems reviewed & are unremarkable except as noted in HPI and below Objective Data Vital Signs Vital Signs: Vital Signs - 24 hr 10/30/24 15:17 10/30/24 15:34 10/30/24 16:00 Temperature 97.6 F Pulse Rate 67 86 76 Respiratory Rate 20 20 14 Blood Pressure 130/72 Pulse Oximetry 94 Oxygen Delivery Oxygen Flow Rate Fraction of Inspired Oxygen 10/30/24 19:56 10/30/24 19:59 10/30/24 19:59 Temperature Pulse Rate 82 79 Respiratory Rate 20 Blood Pressure Pulse Oximetry 92 Oxygen Delivery Nasal Cannula Oxygen Flow Rate 2 Fraction of Inspired Oxygen 10/30/24 20:00 10/30/24 20:08 10/30/24 21:05 Temperature 97.6 F Pulse Rate 77 75 Respiratory Rate 20 20 Blood Pressure 124/74 Pulse Oximetry 94 92 Oxygen Delivery Nasal Cannula Oxygen Flow Rate 2 Fraction of Inspired Oxygen 10/31/24 01:58 10/31/24 02:07 10/31/24 05:33 Temperature 97.8 F Pulse Rate 84 82 77 Respiratory Rate 18 18 20 Blood Pressure 122/75 Pulse Oximetry 92 Oxygen Delivery Oxygen Flow Rate Fraction of Inspired Oxygen 10/31/24 08:54 10/31/24 08:54 10/31/24 09:04 Temperature Pulse Rate 88 88 78 Respiratory Rate 16 16 14 Blood Pressure Pulse Oximetry 88 L Oxygen Delivery Nasal Cannula Oxygen Flow Rate 2 Fraction of Inspired Oxygen Intake/Output Intake/Output: Intake & Output 10/28/24 10/29/24 10/30/24 10/31/24 23:59 23:59 23:59 23:59 Intake Total 5694 313 2924 740 Balance 7778 304 3425 740 Meds/Results Medications: Active Medications Generic Name Dose Route Start Last Admin Trade Name Freq PRN Reason Stop Dose Admin Acetaminophen 650 mg 10/25/24 19:27 10/31/24 08:10 Acetaminophen 325 Mg Tablet PO 650 mg Q4H PRN Administration Mild Pain (1-3) or Fever Albuterol 2.5 mg 10/26/24 09:27 Albuterol Sulfate Neb 2.5 Mg/3 Ml Inh INHALATION Q4HRT PRN Shortness Of Breath Albuterol/Ipratropium 3 ml 10/26/24 14:00 10/31/24 08:50 Ipratropium 0.5 Mg/Albuterol Sulfate 2.5 Mg Ampul.Neb 3 Ml INHALATION 3 ml Q6HRT DAISY Administration Alprazolam 0.25 mg 10/26/24 04:32 10/30/24 19:56 Alprazolam (*Crx) 0.25 Mg Tablet PO 0.25 mg DAILY PRN Administration anxiety Aspirin 81 mg 10/26/24 18:00 10/30/24 17:08 Aspirin 81 Mg Enteric Tablet PO 81 mg QPM DAISY Administration Atorvastatin Calcium 40 mg 10/26/24 18:00 10/30/24 17:09 Atorvastatin 40 Mg Tablet PO 40 mg QPM DAISY Administration Benzonatate 200 mg 10/26/24 13:00 10/31/24 08:10 Benzonatate 100 Mg Capsule PO 200 mg TID DAISY Administration Bisacodyl 10 mg 10/30/24 11:14 Bisacodyl 10 Mg Suppository RECTAL QAM PRN Constipation Budesonide 0.5 mg 10/26/24 20:00 10/31/24 08:58 Budesonide Respule Neb 0.5 Mg/2 Ml Amp INHALATION Not Given Q12HRT [facility] Calcium Carbonate 1,000 mg 10/26/24 09:00 10/31/24 08:10 Calcium/Vitamin D 500 Mg/5 Mcg (200 I.U.) Tablet PO 1,000 mg QAM DAISY Administration Carvedilol 25 mg 10/26/24 09:00 10/31/24 08:10 Carvedilol 25 Mg Tablet PO 25 mg Q12HR DAISY Administration Dextrose 12.5 gm 10/25/24 23:36 Dextrose 50% 25 Gm/50 Ml Syringe IV PUSH PRN PRN Hypoglycemia Protocol Duloxetine HCl 30 mg 10/26/24 09:00 10/31/24 08:10 Duloxetine Hcl 30 Mg Capsule.Dr PO 30 mg QAM DAISY Administration Enoxaparin Sodium 40 mg 10/26/24 09:00 10/31/24 08:10 Enoxaparin 40 Mg/0.4 Ml Syringe SUB-Q 40 mg DAILY DAISY Administration Glucagon 1 mg 10/25/24 23:36 Glucagon For Inj 1 Mg Vial IM PRN PRN Hypoglycemia Protocol Glucose 15 gm 10/25/24 23:36 Glucose Oral Gel 15 Gm Of Glucse In 37.5 Gm Tube PO PRN PRN Hypoglycemia Protocol Dextrose 1,000 mls @ 100 mls/hr 10/25/24 23:36 Dextrose 5% 1,000 Ml IVPB PRN PRN Hypoglycemia Protocol Ceftriaxone Sodium 1 gm in 50 mls @ 100 mls/hr 10/26/24 18:00 10/30/24 17:09 Rocephin 1 Gm/Ns 50 Ml IVPB 100 mls/hr Q24H DAISY Administration Insulin Aspart 2 - 5 units 10/26/24 08:00 10/31/24 08:09 Insulin Aspart (*Bkc) 100 Units/Ml SUB-Q Not Given TIDWM DAISY Protocol Insulin Aspart 1 - 2 units 10/26/24 21:00 10/30/24 23:15 Insulin Aspart (*Bkc) 100 Units/Ml SUB-Q Not Given HS DAISY Protocol Multivitamins/Calcium 1 tablet 10/26/24 09:00 10/31/24 08:10 Therapeutic Multivitamins/Minerals Tab (*Bkc) PO 1 tablet QAM DAISY Administration Ondansetron HCl 4 mg 10/25/24 19:27 Ondansetron Inj 4 Mg/2 Ml Vial IV PUSH Q4H PRN Nausea Polyethylene Glycol 17 gm 10/29/24 12:20 10/31/24 08:10 Polyethylene Glycol 3350 17 Gm Powd.Pack PO 17 gm QAM DAISY Administration Fluticasone/Salmeterol 2 puff 10/26/24 08:00 10/31/24 08:53 Fluticasone/Salmeterol 115-21 Mcg Inhaler 1 Puff INHALATION 2 puff Q12HRT DAISY Administration Radiology Results: ITS Impressions Chest X-Ray 10/25/24 13:34 Impression: 1: Small bilateral nodular densities not seen on prior examination. Follow-up CT chest with contrast recommended to exclude parenchymal nodules. 2: Borderline heart size with pulmonary vascular congestion. Chest CT 10/25/24 18:48 IMPRESSION: COPD Patchy right upper lobe infiltrate which may be due to pneumonia Cholelithiasis Labs Labs: Laboratory Results - last 24 hr 10/30/24 10/30/24 10/30/24 11:29 16:32 19:19 WBC RBC Hgb Hct MCV MCH MCHC RDW Plt Count MPV Immature Gran % (Auto) Neut % (Auto) Lymph % (Auto) [place] % (Auto) Eos % (Auto) Baso % (Auto) Lymph # (Auto) [place] # (Auto) Eos # (Auto) Baso # (Auto) Abs Immat Gran (auto) Absolute Neuts (auto) Absolute Nucleated RBC Nucleated RBC % Sodium Potassium Chloride Carbon Dioxide Anion Gap BUN Creatinine Estim Creat Clear Calc Estimated GFR Glucose POC Capillary Glucose 211 H 203 H 116 H Calcium Magnesium Total Bilirubin AST ALT Alkaline Phosphatase Total Protein Albumin 10/31/24 10/31/24 05:16 07:57 WBC 7.3 RBC 5.43 H Hgb 16.8 H Hct 52.8 H MCV 97.2 MCH 30.9 MCHC 31.8 L RDW 12.0 Plt Count 262 MPV 8.9 Immature Gran % (Auto) 0.4 Neut % (Auto) 53.9 Lymph % (Auto) 29.8 [place] % (Auto) 12.3 H Eos % (Auto) 3.1 Baso % (Auto) 0.5 Lymph # (Auto) 2.19 [place] # (Auto) 0.9 H Eos # (Auto) 0.2 Baso # (Auto) 0.0 Abs Immat Gran (auto) 0.03 Absolute Neuts (auto) 4.0 Absolute Nucleated RBC 0.000 Nucleated RBC % 0.0 Sodium 137 Potassium 4.3 Chloride 92 L Carbon Dioxide > 40 H Anion Gap BUN 11 Creatinine 0.56 L Estim Creat Clear Calc 77 Estimated GFR > 60 Glucose 118 H POC Capillary Glucose 121 H Calcium 9.6 Magnesium 2.0 Total Bilirubin 0.8 AST 33 ALT 51 H Alkaline Phosphatase 63 Total Protein 7.0 Albumin 3.6
[2024-10-31 11:38] LABS: Glucose Point of Care 131 mg/dl (65-105)
--- NOTE | 2024-10-31 13:49 | P.DS_ITS ---
DS: Admitting Diagnosis Discharge Date 10/31/2024 Admitting Diagnosis Shortness of breath DS: Discharge Diagnosis Discharge Diagnosis (1) Acute respiratory failure with hypoxia: Code(s): J96.01 - Acute respiratory failure with hypoxia Status: Acute (2) Chronic obstructive pulmonary disease: Code(s): J44.9 - Chronic obstructive pulmonary disease, unspecified Status: Chronic (3) Influenza A: Code(s): J10.1 - Influenza due to other identified influenza virus with other respiratory manifestations Status: Acute (4) Non-ST elevation IN (NSTEMI): Code(s): I21.4 - Non-ST elevation (NSTEMI) myocardial infarction Status: Acute (5) Pneumonia of right upper lobe due to influenza A virus: Code(s): J11.00 - Influenza due to unidentified influenza virus with unspecified type of pneumonia Status: Acute DS: Summary Hospital Course Hospital Course: In the ED: Vital signs on arrival include a temperature of 97.6?, blood pressure 106/67, pulse 76, respiratory rate 16, SpO2 86% on room air. Labs were significant for WBC count of 8.5, hemoglobin 17.6, D-dimer 0.58, troponin 0.143, proBNP 3200, sodium 132, potassium 5.2, chloride 89, carbon dioxide 37. She did test positive for influenza A. Chest CT showed patchy right upper lobe infiltrate which may be due to pneumonia. She received a nebulizer treatment, aspirin 324 mg, magnesium sulfate 2 g, azithromycin 500 mg, ceftriaxone 1 g, and methylprednisolone 125 mg. On EMS arrival her SpO2 was in the 70s on room air. Echocardiogram 10/28/24: Summary 1. Left ventricular chamber dimension is normal. 2. Left ventricular systolic function is normal, estimated at 55-60%. 3. There is mildly increased left ventricular wall thickness. 4. The left ventricular diastolic function is grade I diastolic dysfunction. 5. Right ventricular systolic function is normal. 6. The interatrial septum is aneurysmal. 7. There is mild mitral valve regurgitation. 8. There is mild tricuspid valve regurgitation. Patient completed Tamiflu for Influenza A and antibiotic treatment for pneumonia. Home 02 evaluation showed patient needs oxygen at 3 liters nasal cannula at rest and with activity. PT/OT. Status at Discharge Functional status at discharge: uses cane/walker Overall status at discharge: patient is progressing back to baseline Time Spent with Patient Time attestation: Total time spent providing and/or coordinating discharge services: Time spent: Greater than 30 minutes Exam Const: General: comfortable and no acute distress Resp: Effort & Inspection: normal respiratory effort Auscultation: wheezes expiratory wheezes (faint) and diminished lung sounds Other: improved air movement Cardio: Rate: regular rate Rhythm: regular rhythm GI: GI Palp: Yes Soft to palpation Auscultation: normal bowel sounds Extrem: General: no pedal edema Psych: Mental Status: mental status grossly normal Affect: normal affect DS: Data Data Completed and Pending Labs on day of discharge: Labs from last 24 hours 10/31/24 10/31/24 10/31/24 11:31 07:57 05:16 WBC 7.3 RBC 5.43 H Hgb 16.8 H Hct 52.8 H MCV 97.2 MCH 30.9 MCHC 31.8 L RDW 12.0 Plt Count 262 MPV 8.9 Immature Gran % (Auto) 0.4 Neut % (Auto) 53.9 Lymph % (Auto) 29.8 [place] % (Auto) 12.3 H Eos % (Auto) 3.1 Baso % (Auto) 0.5 Lymph # (Auto) 2.19 [place] # (Auto) 0.9 H Eos # (Auto) 0.2 Baso # (Auto) 0.0 Abs Immat Gran (auto) 0.03 Absolute Neuts (auto) 4.0 Absolute Nucleated RBC 0.000 Nucleated RBC % 0.0 Sodium 137 Potassium 4.3 Chloride 92 L Carbon Dioxide > 40 H Anion Gap BUN 11 Creatinine 0.56 L Estim Creat Clear Calc 77 Estimated GFR > 60 Glucose 118 H POC Capillary Glucose 131 H 121 H Calcium 9.6 Magnesium 2.0 Total Bilirubin 0.8 AST 33 ALT 51 H Alkaline Phosphatase 63 Total Protein 7.0 Albumin 3.6 10/30/24 10/30/24 19:19 16:32 WBC RBC Hgb Hct MCV MCH MCHC RDW Plt Count MPV Immature Gran % (Auto) Neut % (Auto) Lymph % (Auto) [place] % (Auto) Eos % (Auto) Baso % (Auto) Lymph # (Auto) [place] # (Auto) Eos # (Auto) Baso # (Auto) Abs Immat Gran (auto) Absolute Neuts (auto) Absolute Nucleated RBC Nucleated RBC % Sodium Potassium Chloride Carbon Dioxide Anion Gap BUN Creatinine Estim Creat Clear Calc Estimated GFR Glucose POC Capillary Glucose 116 H 203 H Calcium Magnesium Total Bilirubin AST ALT Alkaline Phosphatase Total Protein Albumin Discharge Plan Discharge Attending physician on discharge: Mayank Bartlett Consulting providers: Zhao Escobedo Discharging Clinician: Johanna Miller Anticipated Discharge Date/Time: 10/31/24 15:30 Patient Disposition: Home, Self-Care Activity: may shower and as tolerated Diet: heart healthy Discharge Instructions: * Oxygen at 3 liters at rest and with activity. * Do not smoke around oxygen or allow anyone else to smoke around oxygen. * Work on quitting smoking. * You have completed your antibiotics and Tamiflu. * Call your provider if you have worsening shortness of breath not improved with oxygen, inhalers, and rest. If you develop a fever >101. * Important to take inhalers as directed. Thank you for entrusting [facility] with your healthcare! Patient Instructions: Antibiotic Form, Oseltamivir (By mouth), How to Stop Smoking (DC), Cigarette Smoking and Your Health (GEN), Influenza (DC), Using Oxygen at Home (DC) Patient Language: Welsh Stand Alone Forms: General Discharge Information Follow-up/Referrals: Alicia,MELBA Mo [Primary Care Provider] - 1 Week Discharge Medications: Continued carvedilol 25 mg tablet 25 mg PO Q12H Rx Instructions: must administer with a meal/food metformin 500 mg tablet 1,000 mg PO QHS spironolactone 25 mg tablet 25 mg PO DAILY atorvastatin 40 mg tablet 40 mg PO QPM Spiriva with HandiHaler 18 mcg capsule, w/inhalation device 1 cap inhalation DAILY Rx Instructions: puncture 1 cap using device; one dose = 2 inhalations fluticasone furoate-vilanterol [Breo Ellipta] 100-25 mcg/dose blister with device 1 inh inhalation DAILY alprazolam 0.25 mg tablet 0.25 mg PO DAILY PRN (Reason: anxiety) albuterol sulfate 90 mcg/actuation HFA aerosol inhaler 4 puff INHALATION QID PRN (Reason: shortness of breath or wheezing) Qty: 8 0RF duloxetine 30 mg capsule,delayed release(DR/EC) 30 mg PO QAM aspirin [Adult Aspirin Regimen] 81 mg tablet,delayed release (DR/EC) 81 mg PO QPM multivitamin,[id number]-min Tablet 1 tablet PO DAILY calcium carbonate-vitamin D3 [Calcium 600 + D(3)] 600 mg-10 mcg (400 unit) tablet 2 tablet PO DAILY Date of admission: 10/25/24 19:27 Primary Care Provider: AliciaChely Admitting Provider: Hugh Kirkpatrick Attending physician on admission: Angeles Willard Condition: Improved Hospitalist MIPS Heart Failure (Exclusion) Patient has history of Heart Transplant or Left Ventricular Assistive Device?: No IF YES, STOP HERE Heart Failure (Qualifier) Patient has current or prior documentation of LVEF less than or equal to 40%, or mod/servere depressed LVSF?: No IF NO, STOP HERE
== END 2024-10-31 15:13 | disposition home health service (06) | DRG 193 ==
LOC: ANHED 19:27 → ANHIMU 20:35 → ANH3MEDSUR 10-27 14:49 → ANHIMU 11-03 15:55
PROVIDERS: Nurse Practitioner Adult Health; Physician Assistant; Admitting Provider Internal Medicine; Emergency Provider Student in an Organized Health Care Education/Training Program; PCP Nurse Practitioner Family; Visit Provider Nurse Practitioner Family
DX: J10.01 Influenza due to other identified influenza virus with the same other identified influenza virus pneumonia (principal); J96.01 Acute respiratory failure with hypoxia; I24.89 Other forms of acute ischemic heart disease; J44.0 Chronic obstructive pulmonary disease with (acute) lower respiratory infection; J44.1 Chronic obstructive pulmonary disease with (acute) exacerbation; I10 Essential (primary) hypertension; I25.10 Atherosclerotic heart disease of native coronary artery without angina pectoris; E78.5 Hyperlipidemia, unspecified; K80.20 Calculus of gallbladder without cholecystitis without obstruction; F32.A Depression, unspecified; F41.9 Anxiety disorder, unspecified; F17.210 Nicotine dependence, cigarettes, uncomplicated; Z20.822 Contact with and (suspected) exposure to COVID-19; Z79.84 Long term (current) use of oral hypoglycemic drugs; Z79.82 Long term (current) use of aspirin
CPT/HCPCS: 36415; 36600; 71046; 71260; 80048; 80053; 82805; 82948; 83036; 83735; 83880; 84145; 84484; 85018; 85025; 85380; 87040; 87070; 87205; 87637; 87641; 93005; 94618; 94640; 96365; 96367; 96375; 97110; 97161; 97165; 97530; 97535; 99285; A9270; C8929; J0456; J0696; J1650; J1815; J2919; J3475; J7030; Q9957; Q9967